=== PATIENT | female | born 1935 | race Caucasian/White ===

== ENCOUNTER 2023-08-26 22:44 | Inpatient (IN) | payer MEDICARE, SELFPAY ==
[2023-08-26] VITALS (7 sets, daily range): BP systolic 113–151; BP diastolic 51–75; BMI 22.0; BMI 20.9
[2023-08-26 19:30] LABS: % Basophils 0.8 % (0-2); % Eosinophils 5.2 % (0-6); % Immature Granulocytes 0.2 % (0-0.5); % Lymphocytes 15.6 % (20.5-51.1); % Monocytes 8.5 % (1.7-9.3); % Neutrophils 69.7 % (42.2-75.2); Absolute Basophils 0.1 10^3/uL (0-0.2); Absolute Eosinophils 0.5 10^3/uL (0-0.7); Absolute Lymphocytes 1.4 10^3/uL (1.2-3.4); Absolute Monocytes 0.8 10^3/uL (0.1-0.6); Absolute Neutrophils 6.2 10^3/uL (1.4-6.5); Hematocrit 39.8 % (37.0-47.0); Hemoglobin 12.7 g/dL (12.0-16.0); Mean Corp Hgb Conc. 31.9 g/dL (33.0-37.0); Mean Corpuscular Hgb 30.8 pg (27.0-31.0); Mean Corpuscular Volume 96.6 fL (81.0-99.0); Mean Platelet Volume 11.3 fL (7.4-10.4); Nucleated Red Blood Cells % 0 %; Platelet Count 177 10^3/uL (130-400); Red Blood Cell Count 4.12 10^6/uL (4.20-5.40); Red Cell Dist. Width 13.6 % (11.5-14.5); White Blood Cell Count 8.9 10^3/uL (4.8-10.8)
--- NOTE | 2023-08-26 19:31 | ED.GENMED ---
History of Present Illness
General
Chief Complaint: Breathing Problem
Source: patient, records and family
Time Seen by Provider: 08/26/23 19:18
Travel History
Have you had any contact with someone who has COVID-19?: No
Do you have any symptoms of coronavirus? Fever > 100 degrees, chills, cough, shortness of breath, sore throat, loss of taste or smell, muscle aches, or headache?: Yes
Symptoms:: shortness of breath
History of Present Illness
History of Present Illness:
This patient is an 88-year-old female presents emergency department complaints of dyspnea for the last 2 days, particular with exertion. She denies leg swelling, orthopnea, PND, cough, sore throat, rhinorrhea, fever, chills, nausea, vomiting, chest
pain or pressure, headache, dizziness, abdominal pain, or other complaints. Patient is compliant with her 20 mg of Lasix per day. She does note a 2 pound weight gain over the last 2 days, and notes that especially in the context of her
dying on July 17 she has been eating less than usual. She denies urinary symptoms or other complaints. Patient takes a daily aspirin.
Past History
Past History
ED Past Medical History: Arrthythmia, CAD, CHF, HTN, Hypercholesterolemia and Valvular disease
ED Past Surgical History: Cardiac (CABG, AICD) and Orthopedic
Social History
Tobacco: Former smoker
Alcohol: None
Drug: None
Personal:
Living: alone
Phy Exam
Physical Exam
Physical Exam:
GENERAL: Alert , in no apparent distress
EYE: pupils equal and reactive
NECK: Supple, no significant adenopathy.
ENT: o/p clr, mmm, no trismus, no drool.
CARDIAC: Regular rate and rhythm .
LUNGS: Equal breath sounds bilaterally, no acute respiratory distress, bilateral rales noted slightly greater at the left base, no active cough or wheezing noted
ABDOMEN: Soft, without focal tenderness, no r/g, no cvat
NEUROLOGICAL: Alert and oriented, no focal neuro deficits
SKIN: Warm and dry, skin intact.
MUSCULOSKELETAL: No edema, well perfused.
PSYCH: Normal and appropriate interaction.
Scores
Heart Failure Risk
Heart Failure Risk Score: Not Applicable
Course
Orders/Labs/Results
Orders:
Orders
08/26/23 Dinner
Cholesterol Lowering
At Your Request: Full Participation
Does patient need a safe tray?: No
Fluid Restriction: 1200 mL/day (40 oz)
Cholesterol Lowering
Fluid Restriction: 1200 mL/day (40 oz)
Cholesterol Lowering: Sodium, 2 Gram
08/26/23 18:26
EKG [Electrocardiogram (*1)] Urgent
Reason for Study: Shortness of Breath
EKG- Treatment ONCE
08/26/23 19:01
Cardiac Monitoring- Treatment ONCE
IV Insert/Care/Rem.- Treatment PRN
CR Chest - 2 Views Urgent
Comment:
Reason For Exam: respiratory distress
O2 Therapy [RESP] Urgent
Titrate/Wean O2 to maintain O2 sat greater than (%): 93
Special Instructions: TO MAINTAIN CONTINUOUS O2 SATS >/= 93%
Pulse Ox/cont/shift [RESP] Urgent
Quantity: 1
Special Instructions: continuous pulse ox
08/26/23 19:15
Complete Blood Count/With Diff Urgent
Comprehensive Metabolic Panel Urgent
08/26/23 19:16
NT-proBNP Urgent
Troponin I Urgent
08/26/23 20:23
Furosemide [Lasix] 40 mg IV NOW STA
08/26/23 22:18
Admit/Transfer Patient As Directed
Co-Sign Provider:
Level of Care: Inpatient admission
Assign to:: Telemetry
Physician / Group: bertha gray
Diagnosis: acute hypoxic resp insuff 2/2 acute/chron chf/cardiomyopathy
Reason for Telemetry: Acute Heart Failure
Date to Stop Telemetry: 08/29/23
Time to Stop Telemetry: 11:00
Reason for Hospitalization: acute hypoxic resp insuff 2/2 acute/chron chf/cardiomyopathy
Expected length of stay greater than two midnights?: Yes
ELOS- Estimated Length of Stay in days: 4
I certify the patient meets the requirements for IP care: Yes
Code Status As Directed
Resuscitation Status: Full Code
CARDIOLOGY CONSULT Routine
Consulting Provider: Benito Hodge
Was physician already notified: No
Reason for consult: acute chf , hx cardiomyopathy ef 25%
Consult Notification Routine
Specialty to Notify: Cardiology
08/26/23 23:23
Acetaminophen [Tylenol] 650 mg PO Q4HPRN PRN
08/26/23 23:23
Activity As Directed
Activity Level: As Tolerated
Intake/ Output As Directed
Frequency: Per unit guidelines
Old Records Request [Obtain Records] As Directed
Dates of Information to be Released: mar 2022
Type of Information Requested: Entire Record
If Other, list type of info requested: include echo
Vital Signs As Directed
Frequency: Per unit guidelines
Weight As Directed
Frequency: Daily
O2 Therapy [RESP] Routine
Nasal Cannula Liter Flow: 2 LPM
Titrate/Wean O2 to maintain O2 sat greater than (%): 92
Pulse Ox/spot Check [RESP] Routine
Quantity: 1
Ot Eval And Treat Routine
Pt Eval And Treat Routine
Activity Level: As Tolerated
DX Deep Vein Thrombosis Video Routine
08/27/23 06:00
Echo 2D MMode Color/Doppler IN AM
Reason for Study: chf
Cardiovascular Evaluation IN AM
Complete Blood Count/With Diff IN AM
Comprehensive Metabolic Panel IN AM
08/27/23 08:00
Amiodarone [Pacerone] 200 mg PO DAILY
Aspirin Low Dose EC [Aspir Low (Enteric Coated)] 81 mg PO DAILY
Atorvastatin [Lipitor] 20 mg PO DAILY
Carvedilol [Coreg] 3.125 mg PO BID
Cholecalciferol (Vitamin D3) [VITAMIN D3 (cholecalciferol)] 25 mcg PO DAILY
Cyanocobalamin [Vitamin B-12] 500 mcg PO DAILY
Furosemide [Lasix] 40 mg IV DAILY
Heparin 5,000 units SC Q12
Multivitamin [Theragran] 1 tablet PO DAILY
NIFEdipine EXTENDED RELEASE [Procardia Xl (Extended Release)] 60 mg PO DAILY
08/27/23 14:00
Levothyroxine [Synthroid] 25 mcg PO DAILY@1400
08/27/23 18:00
Losartan [Cozaar] 100 mg PO QPM
08/28/23 06:00
Complete Blood Count/With Diff IN AM
Comprehensive Metabolic Panel IN AM
08/29/23 06:00
Complete Blood Count/With Diff IN AM
Comprehensive Metabolic Panel IN AM
08/29/23 11:00
DC Protocol for Telemetry ONCE
Abnormal Lab Results
08/26/23
19:15
RBC 4.12 L 10^6/uL
(4.20-5.40)
MCHC 31.9 L g/dL
(33.0-37.0)
MPV 11.3 H fL
(7.4-10.4)
Absolute Monos (auto) 0.8 H 10^3/uL
(0.1-0.6)
Lymphocytes % 15.6 L %
(20.5-51.1)
BUN 54 H mg/dl
(7-17)
Creatinine 1.4 H mg/dL
(0.6-1.0)
Glucose 196 H mg/dl
(70-99)
08/26/23 19:15
08/26/23 19:15
Vital Signs
Initial and Last Documented VS:
Initial Vital Signs
Temp Pulse Resp BP Pulse Ox
99.1 F 88 22 129/65 91
08/26/23 18:23 08/26/23 18:23 08/26/23 18:23 08/26/23 18:23 08/26/23 18:23
Last Documented Vital Signs
Temp Pulse Resp BP Pulse Ox
98.4 F 70 18 151/70 94
08/26/23 23:55 08/26/23 23:55 08/26/23 23:55 08/26/23 23:55 08/26/23 23:55
*Critical Care Note
Total Time (30-74mins, 75-104mins- exclusive of procedures): Not Applicable
Update Note
Update Note:
Patient presents to the Emergency Department with dyspnea
Number and Complexity of Problems Addressed at the Encounter
� Chronic conditions affecting care:
� Acute Exacerbation and/or Progression of Chronic Illness:
� Differential Diagnosis includes: But not limited to heart failure, pneumonia, ACS, PE, pneumothorax, etc. etc.
Amount and/or Complexity of Data to be Reviewed and Analyzed
� I performed an independent evaluation of and my interpretation is:
EKG: Read by me, normal rate, ventricular paced, unchanged from prior
CT:
Xrays: Suspect mild heart failure
Laboratory Studies: Noted BNP elevation which is new, worsening renal function, nonspecific hyperglycemia without associated acidosis
Other:
� Review of other/old records reveals: Discharge summary from May 2022 reviewed patient had a left femur fracture that was repaired, complicated by COVID and hypoxia, but was ultimately able to be discharged without oxygen.
� Clinical information was obtained by an independent historian: Son and daughter who are at bedside
� Prescriptions/Medications Considered but not given:
� Further testing considered but not performed:
Risk of Complications and/or Morbidity or Mortality of Patient Management
� Social determinants of health affecting care:
� Discussion with other providers (PCP, Hospitalists, Consultants, etc):
� Escalation of care including admission/observation vs risk of discharge considered: Suspect heart failure as etiology for her symptoms perhaps exacerbated by her history of moderate recently looked at via echo approximately
1 year ago. Will Rx Lasix, discussed with Darshan harry hospitalist for admission sure. Patient stable on nasal cannula.
ED Attending Note
-
Portions of this chart may have been created with voice recognition software.� Occasional wrong word or��sound alike� substitutions may have occurred due to the inherent limitations of voice recognition software.
Discharge Plan
Departure
Patient Disposition: Admit
Date of Disposition: 08/26/23
Time of Disposition: 20:24
Admit to: Telemetry
Presentation/result/management discussed w/ accepting MD/DO: Hospitalist
Condition: Good
Discharge Problem:
Dyspnea
Interventions
Interventions:
*Risk Screen - Suicide Last Done: 08/26/23 22:22
*General Assessment Last Done: 08/26/23 19:47
*Neglect/Abuse Screening Last Done: 08/26/23 19:47
ED- Fall Risk Assessment Last Done: 08/26/23 19:44
*ED COVID-19 Vaccine History Last Done: 08/26/23 23:40
*Nursing Disposition Last Done: 08/26/23 23:29
ED- Cardiac Assessment Last Done: 08/26/23 19:44
ED- Pulmonary Assessment Last Done: 08/26/23 19:44
Discharge Date and Time
Discharge Date/Time: 08/26/23 23:29
[2023-08-26 19:47] LABS: ALT (SGPT) 19 U/L (0-35); AST (SGOT) 27 U/L (14-36); Albumin 4.2 g/dl (3.5-5.0); Alkaline Phosphatase 88 U/L (38-126); Blood Urea Nitrogen 54 mg/dl (7-17); Calcium 10.1 mg/dl (8.4-10.2); Carbon Dioxide 29 mmol/L (22-30); Chloride 99 mmol/L (98-107); Estimated Creatinine Clearance 24 ml/min; Glucose 196 mg/dl (70-99); Potassium 4.6 mmol/L (3.5-5.1); Sodium 137 mmol/L (135-145); Total Bilirubin 0.7 mg/dl (0.2-1.3); Total Protein 7.2 g/dl (6.3-8.2); eGFR 36.19
[2023-08-26 20:00] LABS: NT-proBNP 8120 pg/ml; Troponin I 0.019 ng/ml
[2023-08-26] MEDS: LASIX 40 MG IV (20:34)
--- NOTE | 2023-08-26 21:53 | HPS.HSE ---
Addendum entered and electronically signed by Mouna St MD 08/26/23 22:32:
I saw and examined the patient.
The SERVICE PORTER or PA's note was reviewed and I agree with the note.
Comment:
Patient is a pleasant 88 years old with history of systolic CHF, ischemic and numerous status post RCA, A-fib who came to the ER with dyspnea and weight gain for last 2 days noted to have elevated BNP and x-ray shows pulmonary congestion, given
Lasix IV in the ER.
Patient seen and examined at bedside, denies any chest pain, her shortness of breath improved, no abdominal pain, no nausea, no vomiting, no diarrhea or constipation.
Physical exam:
GENERAL : Patient is awake, alert, oriented x3
HEENT: Nonicteric sclerae, PERRLA, EOMI. Oropharynx clear. Moist mucous membranes. Conjunctivae appear well perfused.
CHEST: Chest wall is nontender.
HEART: Diminished breath sound bilaterally with bilateral basal rate
LUNGS: Clear to auscultation bilaterally.
ABDOMEN: Soft, positive bowel sounds, nontender, no organomegaly.
RECTAL: Deferred.
SKIN: No rash, no excessive bruising, petechiae, or purpura.
NEUROLOGIC: Cranial nerves II-XII intact without motor/sensory deficit.
Assessment/plan:
Acute on chronic systolic CHF.
Patient presented with shortness of breath.
BNP level is elevated at 8120
Continue IV diuresing in form of Lasix 40 mg daily
Daily weight.
Strict I's and O's.
Consulted cardiology.
Most recent echocardiogram in November 10, 2022 shows EF 25 to 30%
Repeat echocardiogram
Paroxysmal A-fib
Continue amiodarone/aspirin
Original Note:
Family Physician
-
Family Physician: Guicho Klein
Chief Complaint
-
Shortness of breath, REDDY, weight gain
History of Present Illness
88-year-old female complaining of dyspnea for the past 2 days increased with exertion. She reports a 2 pound weight gain also over the past 2 days despite taking her 20 mg of Lasix daily and eating less since her on July 17. She denies
orthopnea, leg swelling, cough, sore throat, fever, chills, chest pain, palpitations, abdominal pain, nausea, vomiting, diarrhea, urinary symptoms. She is past medical history of A-fib, congestive heart failure with cardiomyopathy EF 25% November 10,
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 difficile, renal calculi, SQUAXIN.
Medical History
Past Medical History
Past Medical History: Reports Other
Additional Past Medical History:
A-fib
ASCVD
Hypertension
Chronic HFrEF (35-40%)
Possible / Presumed Endocarditis 2021
Recurrent C Diff Colitis
CKD III
COVID-19 infection May 2023 received Decadron x 10 days
SQUAXIN
Cataracts
Arthritis
ADHD
Renal calculi
Past Surgical History: Reports Other
Additional Past Surgical History:
CABG 2012
AICD placement
Bilateral Wrist ORIF
Left hip ORIF June 05, 2022
Social History
Tobacco: Former Smoker (Quit smoking 37y ago. Approx 20 pack years total.)
Alcohol: None
Drug: None
Personal: ( July 18, 2023)
Living: Alone
Employment: Retired
Family History
Family History: Other (Mother: Premature CAD ( at 46) Multiple other family members with longevity. Father age 65 miners asthma)
Allergies / Home Medications
Allergies reflects when Allergies were last updated in [facility].
Home Medications with original date entered in [facility]
Allergy/Medication List:
Allergies
Allergy/AdvReac Type Severity Reaction Status Date / Time
No Known Allergies Allergy Verified 08/26/23 18:25
Home Medications
acetaminophen 500 mg tablet (Tylenol Extra Strength) 1,000 mg PO Q6H PRN mild pain 08/26/23
amiodarone 200 mg tablet 200 mg PO DAILY 08/26/23
aspirin 81 mg tablet,delayed release 81 mg PO DAILY 08/26/23
atorvastatin 20 mg tablet 20 mg PO DAILY 08/26/23
carvedilol 3.125 mg tablet 3.125 mg PO BID 08/26/23
cholecalciferol (vitamin D3) 25 mcg (1,000 unit) tablet 25 mcg PO DAILY 08/26/23
cyanocobalamin (vitamin B-12) 500 mcg tablet 500 mcg PO DAILY 08/26/23
furosemide 20 mg tablet 20 mg PO DAILY 08/26/23
levothyroxine 25 mcg tablet 25 mcg PO DAILY@1400 08/26/23
losartan 100 mg tablet 100 mg PO QPM 08/26/23
zcoltgcsnljn-nnuuptfo-skgszk tablet 1 tab PO DAILY 08/26/23
nifedipine 60 mg tablet,extended release 24 hr 60 mg PO DAILY 08/26/23
potassium chloride 20 mEq tablet,extended release(part/cryst) (Klor-Con M) 10 meq PO Q48H@0800 08/26/23
Review of Systems
-
History Source: Patient and Family (Daughter Joslyn at bedside)
A 12 point ROS was completed and negative except as noted: Yes
Constitutional: Reports Weight Gain (2 pounds past day); Denies Fever or Fatigue
EENT: Denies Sore Throat or Runny Nose
Respiratory: Reports Trouble Breathing (REDDY); Denies Cough
Cardiac: Denies Chest Pain, Diaphoresis, Palpitations or Syncope
Abdomen/GI: Denies Abdominal Pain, Nausea, Vomiting, Diarrhea, Constipated, Bloody Stools or Black Stools
: Denies Dysuria, Frequency, Flank Pain, Incontinence, Difficulty Voiding or Urgency
Musculoskeletal: Denies Joint Pain or Edema
Skin: Denies Itching or Rash
Neurological: Denies Dizzy, Headache or Weakness
Endocrine: Reports No Symptoms
Hematologic/Lymphatic: Reports No Symptoms
Psych: Reports Calm
Physical Exam
Vital Signs
Vital Signs
Temp Pulse Resp BP Pulse Ox
99.1 F 85 25 128/76 95
08/26/23 18:23 08/26/23 20:37 08/26/23 20:37 08/26/23 20:34 08/26/23 20:38
Physical Exam
General: Comfortable and Conversant; No Pain, Fever or Chills
HEENT: NormoCephalic, Anicteric, PERRLA and No Ptosis
Respiratory: Rales (Throughout both lung strickland); No Wheezes
Cardiac: S1/S2 and Murmur; No Rub, Gallop or Peripheral Edema
Breast: Deferred by me
GI: Soft, Non Tender, Non Distended, Normal Bowel Sounds and No Hepatosplenomegaly
Rectal: Deferred by Provider
Genito-urinary: Deferred by me
Musculoskeletal: No Clubbing, No Cyanosis and No Edema
Skin: Warm and Dry; No Rash
Neuro: AO x 3, No Motor Deficits, Nonfocal/grossly intact, Cranial Nerves Intact and No Sensory Deficits; No Slurred Speech, Facial Droop or Tremors
Psych: Calm
Laboratory Results
-
08/26/23 19:15
08/26/23 19:15
Laboratory Results
Total Bilirubin 0.7 mg/dl (0.2-1.3) 08/26/23 19:15
AST 27 U/L (14-36) 08/26/23 19:15
ALT 19 U/L (0-35) 08/26/23 19:15
Alkaline Phosphatase 88 U/L (38-126) 08/26/23 19:15
Troponin I 0.019 ng/ml 08/26/23 19:16
Impression/Plan
-
Impression/plan:
Admit to telemetry
#Acute hypoxic resp insuff 2/2 Acute on Chronic CHF exacerbation/Cardiomyopathy EF 25%
91% RA, 95% 2 LNC(patient reports baseline weight 122 pounds went up to 124 pounds at home today is currently 58 kg / 127.6 kg here
BNP 8120
-I/O, daily weights
-IV Lasix 40 mg daily
-Consult [facility] cardiology
-Check 2D echo
-Healthy heart diet, fluid restrict 40 ounce
Per outpatient records at [place] 2D echo November 10, 2022 EF 25% moderate aortic stenosis, moderate TR MR, pulm HTN
2D echo 10/27/2021: EF 35-40%, moderate reduced LVSF, moderate aortic stenosis. Mild aortic regurg. Moderate TR/MR, pulm HTN pulm pressure 50-55 mmHg
CXR: Mild pulmonary vascular congestion. Stable cardiac enlarged
EKG: Atrial sensed ventricular paced rhythm with frequent PVCs heart rate 88 bpm, QTc 520 MS
#CARLOS on CKD 3B�4
Creat 1.4 prior 1.0 06/08/2022
-Follow BMP
#Afib parox
#Pacemaker/defibrillator
-Continue amiodarone 20 mg daily, aspirin 81 mg daily
-Patient follows with Dr. De Los [facility] at [facility] cardiology
#Pulmonary HTN
#Moderate TR/MR
#CAD/CABG 2012
#Hx endocarditis 11/01/2021
-Continue aspirin 81 mg daily, atorvastatin 20 mg daily, carvedilol 3.125 mg twice daily
#HTN�benign
BP 128/76
-Continue carvedilol 3.125 mg twice daily, losartan 100 mg every afternoon
-Continue nifedipine 60 mg daily
#Hypothyroidism
-Continue levothyroxine 25 mcg p.o. daily
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
Plt currently 177 stable
Other PMH:
COVID-19 infection May 2023 received Decadron x 10 days
SQUAXIN
Cataracts
Arthritis
ADHD
Hx C. difficile
Renal calculi
DVT prophylaxis
subcu heparin
Full code per patient with daughter Joslyn at bedside
[2023-08-27] VITALS (8 sets, daily range): BP systolic 95–148; BP diastolic 51–70; PULSE 74–81; O2SAT 91–96; BMI 20.8
[2023-08-27 07:22] LABS: % Basophils 0.9 % (0-2); % Eosinophils 7.3 % (0-6); % Immature Granulocytes 0.3 % (0-0.5); % Lymphocytes 16.5 % (20.5-51.1); % Monocytes 11.1 % (1.7-9.3); % Neutrophils 63.9 % (42.2-75.2); Absolute Basophils 0.1 10^3/uL (0-0.2); Absolute Eosinophils 0.5 10^3/uL (0-0.7); Absolute Lymphocytes 1.2 10^3/uL (1.2-3.4); Absolute Monocytes 0.8 10^3/uL (0.1-0.6); Absolute Neutrophils 4.5 10^3/uL (1.4-6.5); Hemoglobin 11.4 g/dL (12.0-16.0); Mean Corp Hgb Conc. 31.7 g/dL (33.0-37.0); Mean Corpuscular Hgb 30.9 pg (27.0-31.0); Mean Corpuscular Volume 97.6 fL (81.0-99.0); Mean Platelet Volume 11.1 fL (7.4-10.4); Nucleated Red Blood Cells % 0 %; Platelet Count 148 10^3/uL (130-400); Red Blood Cell Count 3.69 10^6/uL (4.20-5.40); Red Cell Dist. Width 13.8 % (11.5-14.5)
--- NOTE | 2023-08-27 07:40 | PTCARENOTE ---
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
[2023-08-27 07:54] LABS: ALT (SGPT) 17 U/L (0-35); AST (SGOT) 22 U/L (14-36); Albumin 3.6 g/dl (3.5-5.0); Alkaline Phosphatase 79 U/L (38-126); Blood Urea Nitrogen 52 mg/dl (7-17); Calcium 9.5 mg/dl (8.4-10.2); Carbon Dioxide 31 mmol/L (22-30); Chloride 100 mmol/L (98-107); Estimated Creatinine Clearance 24 ml/min; Glucose 143 mg/dl (70-99); HDL Cholesterol 45 mg/dl; LDL Cholesterol, Calculated 77 mg/dl; Potassium 4.1 mmol/L (3.5-5.1); Sodium 141 mmol/L (135-145); Total Bilirubin 0.7 mg/dl (0.2-1.3); Total Cholesterol 143 mg/dl (50-199); Total Protein 6.3 g/dl (6.3-8.2); Triglyceride 109 mg/dl (10-149); Very Low Density Lipoprotein 21 mg/dl (0-30); eGFR 36.19
--- NOTE | 2023-08-27 08:02 | W.PN.HOSP.TC ---
Today's Communication/Plan
-
see bold
Assessment / Plan
Assessment / Plan
Gen: NAD, Awake and alert
Eyes: EOMI, PERRLA, no scleral icterus.
Neck: supple.
CV: RRR, +S1/S2, 2/6 systolic murmur
Resp: CTAB, no rales, wheezes, or rhonchi.
Abd: +BS, soft, NT, ND
Skin: No rashes. No LE edema
Neuro: CN 2-12 intact, non-focal.
Psych: Normal mood and affect.
CXR:
1. Suspicion for mild pulmonary vascular congestion.
2. Stable cardiac enlargement.
Acute on chronic HFrEF:
-proBNP 8120
-cont IV lasix (increase to 40mg IV BID)
-cont BB
-check echo
-I/Os, daily wts
-c/s cards
CARLOS on CKD3b:
-likely due to CRS
-trend Cr with diuresis
Paroxysmal A-fib: Continue amiodarone/BB
Essential HTN: Cont Coreg/nifedipine/losartan
Hypothyroidism: Continue Levoxyl
FULL/heparin
Anticipated Discharge: 24 - 48 hours
Subjective/Interval History
-
Date of Service: August 27, 2023
SOB improving.
Objective Data
-
Labs:
Laboratory Results
08/27/23
06:52
WBC 7.0
Hgb 11.4 L
Hct 36.0 L
Plt Count 148
Sodium 141
Potassium 4.1
Chloride 100
Carbon Dioxide 31 H
BUN 52 H
Creatinine 1.4 H
Glucose 143 H
Calcium 9.5
Total Bilirubin 0.7
AST 22
ALT 17
Alkaline Phosphatase 79
Vital Signs:
Vital Signs
Temp Pulse Resp BP Pulse Ox
97.9 F 73 18 127/65 97
08/27/23 03:30 08/27/23 03:30 08/27/23 03:30 08/27/23 03:30 08/27/23 03:30
--- NOTE | 2023-08-27 08:10 | CON.CAR ---
Addendum entered and electronically signed by Benito Hodge MD 08/27/23 09:20:
I saw and examined the patient.
The WIRE BRUSH MAKER's note was reviewed and I agree with the note.
Comment: 88 y/o female with CAD s/p CABG 2012, ICD (BS), HFrEF (most recent EF here 35-40%), suspected endocarditis 11/03 (treatment with abx), hypertension, dyslipidemia, AAA, moderate /TR/MR, LBBB, VT (on amio, with ICD as noted) who is here for
evaluation of 1 day of REDDY.
- breathing improved, increase lasix bid today, likely back to home diuretics tomorrow
- repeat tte today
Original Note:
Consultation
Consultation Request
Date/Time Consultation Requested: 08/26/232217
Date/Time Consultation Performed: 08/26/23 08
Requesting Provider: Angela Dave NP
Performing Provider: Linda LABOY for Dr. Hodge
Reason for Consultation: CHF
Medical History
-
Chief Complaint: SOB
History of Present Illness:
88 y/o female with CAD s/p CABG 2012, ICD (BS), HFrEF (most recent EF here 35-40%), suspected endocarditis 11/03 (treatment with abx), hypertension, dyslipidemia, AAA, moderate /TR/MR, LBBB, VT (on amio, with ICD as noted) who is here for
evaluation of 1 day of REDDY. She is admitted for management of ngeog-lc-ikqspny HFrEF. She is on O2 by MO. She has been taking her daily lasix. Her of 55 years last month and she has not been eating or drinking much. Dr. De Los Santos is her
teller vault and she sees him about every 4 months. She is seeing him as OP soon.
Past Medical History
Past Medical History: Arrhythmias (VT. Patient denies any history of AFIB.), CAD, CHF, HTN, Hypercholesterolemia and Valvular Disease
Social History
Personal:
Family History
Family History: Reviewed & Not Pertinent
Allergies / Home Medications
Allergy/AdvReac Type Severity Reaction Status Date / Time
No Known Allergies Allergy Verified 08/26/23 18:25
�Medication �Instructions �Recorded �Confirmed �Type
acetaminophen 500 mg tablet 1,000 mg PO Q6H PRN mild pain 08/26/23 08/26/23 History
(Tylenol Extra Strength)
amiodarone 200 mg tablet 200 mg PO DAILY 08/26/23 08/26/23 History
aspirin 81 mg tablet,delayed 81 mg PO DAILY 08/26/23 08/26/23 History
release
atorvastatin 20 mg tablet 20 mg PO DAILY 08/26/23 08/26/23 History
carvedilol 3.125 mg tablet 3.125 mg PO BID 08/26/23 08/26/23 History
cholecalciferol (vitamin D3) 25 25 mcg PO DAILY 08/26/23 08/26/23 History
mcg (1,000 unit) tablet
cyanocobalamin (vitamin B-12) 500 500 mcg PO DAILY 08/26/23 08/26/23 History
mcg tablet
furosemide 20 mg tablet 20 mg PO DAILY 08/26/23 08/26/23 History
levothyroxine 25 mcg tablet 25 mcg PO DAILY@1400 08/26/23 08/26/23 History
losartan 100 mg tablet 100 mg PO QPM 08/26/23 08/26/23 History
iamrmwvjzglp-imiotwpq-fhsssp tablet 1 tab PO DAILY 08/26/23 08/26/23 History
nifedipine 60 mg tablet,extended 60 mg PO DAILY 08/26/23 08/26/23 History
release 24 hr
potassium chloride 20 mEq 10 meq PO Q48H@0800 08/26/23 08/26/23 History
tablet,extended
release(part/cryst) (Klor-Con M)
Review of Systems
-
History Source: Patient
All other systems: Negative unless noted
Constitutional: Weight Loss (not eating much as noted)
Respiratory: Trouble Breathing
Physical Exam
Vital Signs
Temp Pulse Resp BP Pulse Ox
97.9 F 73 18 127/65 97
08/27/23 03:30 08/27/23 03:30 08/27/23 03:30 08/27/23 03:30 08/27/23 03:30
Lab Results
08/27/23 06:52
08/27/23 06:52
Troponin I 0.019 ng/ml 08/26/23 19:16
Tlp-I-Pnzfbxpfgir Pept 8120 pg/ml 08/26/23 19:16
Physical Exam
General: Well Developed and No Apparent Distress
Respiratory: Crackles (bases) and Other (on O2 by NC, mildly increased WOB)
Cardiac: Regular Rhythm
Musculoskeletal: No Edema
Skin: Warm and Dry
Neuro: AO x 3
Psych: Calm
Impression / Plan
-
Aylak-ad-hxqfgcm HFrEF:
-BNP elevated, CXR suggestive of excess fluid. Mildly increased WOB, on O2 by NC, rales noted.
-Echo 10/27/21: EF 35-40%. Moderate aortic stenosis. Mild aortic regurgitation. Thickened mitral valve with MAC and echodensities on ventricular side of the valve. Cannot exclude vegetation. Moderate tricuspid regurgitation. Moderate mitral
regurgitation. Pulmonary hypertension
-agree with IV diuresis, which requires intensive monitoring- follow creatinine, which is mildly elevated
-update echo
-CHF education
-she is on BB/ARB per her primary teller vault
CAD s/p CABG:
-stable without reports of chest pain, trop is unremarkable
-continue ASA, statin, BB
VT:
-ICD in place (BS)
-on amiodarone
Data Reviewed
-
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
Radiology: Report Reviewed by me (CXR: 1. Suspicion for mild pulmonary vascular congestion. 2. Stable cardiac enlargement.)
Medical Tests (Nuc Med, Echo etc): Report Reviewed by me (echo as above)
Labs: Labs Reviewed by me
[2023-08-27] MEDS: COREG 3.125 MG PO ×2 (09:27→21:09)
[2023-08-27] MEDS: PROCARDIA XL (EXTENDED RELEASE) 60 MG PO (09:27)
[2023-08-27] MEDS: VITAMIN B-12 500 MCG PO (09:28)
[2023-08-27] MEDS: LIPITOR 20 MG PO (09:28)
[2023-08-27] MEDS: THERAGRAN 1 TABLET PO (09:30)
[2023-08-27] MEDS: PACERONE 200 MG PO (09:30)
[2023-08-27] MEDS: HEPARIN 5000 UNITS SC ×2 (09:30→20:09)
[2023-08-27] MEDS: LASIX 40 MG IV ×2 (09:31→16:49)
[2023-08-27] MEDS: VITAMIN D3 (cholecalciferol) 25 MCG PO (09:31)
[2023-08-27] MEDS: ASPIR LOW (ENTERIC COATED) 81 MG PO (09:31)
[2023-08-27] MEDS: FLUSH (NSS) 1 FLUSH IV ×2 (09:32→16:49)
--- NOTE | 2023-08-27 11:18 | CM ---
Patient seen bedside with family, initial assessment completed. Patient resides independently in a multiple story home with a first floor set up, one step to enter, railing to get in. Patient currently on O2, is not on home O2, has a walker,
wheelchair, and and cane at home if needed. Patient has had [facility] in the past, denies SNF history. Patient confirms PCP Guicho Klein, pharmacy [facility], confirms prescription coverage. Patient denies food insecurities at home.
PT/OT consulted, watch for recommendations. CM will continue to follow for all discharge planning needs.
Plan; home no needs vs VN, watch for PT/OT evals.
[2023-08-27] MEDS: SYNTHROID 25 MCG PO (14:13)
--- NOTE | 2023-08-27 16:56 | PTCARENOTE ---
Pt AAO x3, BOLAÑOS; OOB to chair/ambulated to stretcher with assist x1; jessee OOB activity but tires easily. VSS. Telemetry:V-paced rhythm. On nc 2 lpm- pulse ox 93%, pt with (+) REDDY but denies SOB. Abd soft, rounded, jessee PO well. Purewick catheter
P/I large amts clear yellow urine. Resting in bed at present; family at bedside. Will continue to monitor.
[2023-08-27] MEDS: COZAAR 100 MG PO (18:22)
[2023-08-28] MEDS: TYLENOL 650 MG PO (00:27)
[2023-08-28 01:44] VITALS: BMI 20.8
[2023-08-28 03:12] VITALS: BP 134/60
[2023-08-28 06:00] VITALS: BMI 20.8
[2023-08-28 07:21] LABS: % Basophils 0.7 % (0-2); % Eosinophils 9.8 % (0-6); % Immature Granulocytes 0.1 % (0-0.5); % Lymphocytes 17.3 % (20.5-51.1); % Monocytes 10.5 % (1.7-9.3); % Neutrophils 61.6 % (42.2-75.2); Absolute Basophils 0.1 10^3/uL (0-0.2); Absolute Eosinophils 0.7 10^3/uL (0-0.7); Absolute Lymphocytes 1.2 10^3/uL (1.2-3.4); Absolute Monocytes 0.7 10^3/uL (0.1-0.6); Absolute Neutrophils 4.2 10^3/uL (1.4-6.5); Hematocrit 38.6 % (37.0-47.0); Mean Corp Hgb Conc. 31.1 g/dL (33.0-37.0); Mean Corpuscular Hgb 30.7 pg (27.0-31.0); Mean Corpuscular Volume 98.7 fL (81.0-99.0); Mean Platelet Volume 11.1 fL (7.4-10.4); Nucleated Red Blood Cells % 0 %; Platelet Count 157 10^3/uL (130-400); Red Blood Cell Count 3.91 10^6/uL (4.20-5.40); Red Cell Dist. Width 13.8 % (11.5-14.5); White Blood Cell Count 6.8 10^3/uL (4.8-10.8)
--- NOTE | 2023-08-28 07:40 | W.PN.CD ---
Today's Communication / Plan
-
-Stable for discharge from cardiac standpoint.
-Increase diuretics dose at discharge.
-Continue Coreg and losartan 3.125 twice a day and 100 mg daily
Impression / Plan
-
Buwzj-ii-nsfhrgt HFrEF:
-BNP elevated, CXR suggestive of excess fluid. Mildly increased WOB, on O2 by NC, rales noted.
-Echo 10/27/21: EF 35-40%. Moderate aortic stenosis. Mild aortic regurgitation. Thickened mitral valve with MAC and echodensities on ventricular side of the valve. Cannot exclude vegetation. Moderate tricuspid regurgitation. Moderate mitral
regurgitation. Pulmonary hypertension
-Echo 08/27/2023: Severe mitral regurgitation. LVEF 30%.
-Feeling much better with diuresis.
-Patient and family wants to go home.
-Home dose Lasix is 20 mg once a day. Change it to 40 mg twice a day for 3 days and then 40 mg once a day.
-CHF education
-she is on BB/ARB per her primary vendor representatives, consider adding spironolactone/Farxiga and upgrade to Entresto as outpatient.
CAD s/p CABG:
-stable without reports of chest pain, trop is unremarkable
-continue ASA, statin, BB
VT:
-ICD in place (BS)
-on amiodarone
Physical Exam
Vital Signs/Labs
Vital Signs
Temp Pulse Resp BP Pulse Ox
97.5 F 76 19 134/60 94
08/28/23 03:12 08/28/23 03:12 08/28/23 03:12 08/28/23 03:12 08/28/23 03:12
08/27/23 08/28/23 08/29/23
06:59 06:59 06:59
Actual Weight 55.026 kg 54.941 kg
Triglycerides 109 mg/dl (10-149) 08/27/23 06:52
LDL Cholesterol, Calc 77 mg/dl 08/27/23 06:52
VLDL Cholesterol, Calc 21 mg/dl (0-30) 08/27/23 06:52
HDL Cholesterol 45 mg/dl 08/27/23 06:52
08/26/23
19:16
Ssl-S-Cxeslswovca Pept 8120
LAB Results
08/26/23
19:16
Troponin I 0.019
Physical Exam
Constitutional: No acute distress and Comfortable
EENT: Anicteric and Moist mucous membranes
Cardiovascular: Rhythm & rate is regular, Pedal edema is absent, Pedal edema present and JVD present
Respiratory: Respiratory effort normal, Lungs clear to auscul. and Wheeze Absent
GI: Soft, Non tender and Normal bowel sounds
Neuro/Psych: Alert, Oriented and AO x 3
Data Reviewed
-
Date of Service: August 28, 2023
Medical Decision Making: Reviewed Test Results, Independent Historian Assessment, Test Interpretation and Review of Case with other Provider
EKG: Tracing Personally Visualized and interpreted
Echo: Report Reviewed by me
Labs: Labs Reviewed by me
Old Records: Reviewed
[2023-08-28 07:43] VITALS: BP 130/64
[2023-08-28 07:44] LABS: ALT (SGPT) 16 U/L (0-35); AST (SGOT) 22 U/L (14-36); Albumin 3.6 g/dl (3.5-5.0); Alkaline Phosphatase 79 U/L (38-126); Blood Urea Nitrogen 63 mg/dl (7-17); Calcium 9.5 mg/dl (8.4-10.2); Carbon Dioxide 32 mmol/L (22-30); Chloride 98 mmol/L (98-107); Estimated Creatinine Clearance 24 ml/min; Glucose 158 mg/dl (70-99); Potassium 4.3 mmol/L (3.5-5.1); Sodium 140 mmol/L (135-145); Total Bilirubin 0.7 mg/dl (0.2-1.3); Total Protein 6.5 g/dl (6.3-8.2); eGFR 36.19
--- NOTE | 2023-08-28 09:02 | W.PN.HOSP.TC ---
Addendum entered and electronically signed by John Dc MD 08/28/23 11:33:
Patient is in need of oxygen on exertion due to pulse oximetry of 92% on room air at rest; 87% on room air with exertion. Patient was placed on 2L O2 via nasal cannula with saturation of 94%. Oxygen will help to improve hypoxemia. Patient is mobile
within the home. Oxygen will improve the patient's symptoms.
Original Note:
Today's Communication/Plan
-
home O2 eval, d/c
Assessment / Plan
Assessment / Plan
Gen: remains NAD, Awake and alert
Eyes: EOMI, PERRLA, no scleral icterus.
Neck: supple.
CV: RRR, +S1/S2, 2/6 systolic murmur
Resp: mild rales, greatest in the L base
Abd: +BS, soft, NT, ND
Skin: No rashes. No LE edema
Neuro: remains CN 2-12 intact, non-focal.
Psych: Normal mood and affect.
CXR:
1. Suspicion for mild pulmonary vascular congestion.
2. Stable cardiac enlargement.
Echo: Normal LV size with moderately reduced systolic function.
LVEF is 30 to 35% by visual estimation with global diffuse hypokinesis.
Mild concentric LVH.
Normal right ventricular size and function.
Moderate to severe mitral regurgitation.
Mild to moderate aortic stenosis. Moderate aortic regurgitation.
Moderate to severe tricuspid regurgitation.
Estimated pulmonary artery pressure of 48 mmHg, assuming a right atrial
pressure of 3 mmHg.
Compared to prior from October 27, 2021, mitral regurgitation is now moderate to
severe from moderate, aortic regurgitation is moderate from mild , and
tricuspid regurgitation is now moderate to severe from moderate.
Acute on chronic HFrEF:
-proBNP 8120
-echo above
-currently on IV Lasix. As per discussion with Dr. Parks, pt can be discharged on Lasix 40mg twice daily for 3 days then 40mg daily thereafter.
-cont BB
-I/Os, daily wts
CARLOS on CKD3b:
-likely due to CRS
-Cr stable with diuresis
-recheck Cr in 1 week
Other problems:
Paroxysmal A-fib: Continue amiodarone/BB
Essential HTN: Cont Coreg/nifedipine/losartan
Hypothyroidism: Continue Levoxyl
FULL/heparin
Total time spent on d/c = 34 min. This included today's physical exam, progress note, review of laboratory and diagnostic data, preparation of discharge documents and prescriptions, and discussions about the pt's hospital course and discharge plan
with the patient and other medical office representative involved in the patient's care.
Anticipated Discharge: Today
Subjective/Interval History
-
Date of Service: August 28, 2023
Denies SOB.
Objective Data
-
Labs:
Laboratory Results
08/28/23
06:49
WBC 6.8
Hgb 12.0
Hct 38.6
Plt Count 157
Sodium 140
Potassium 4.3
Chloride 98
Carbon Dioxide 32 H
BUN 63 H
Creatinine 1.4 H
Glucose 158 H
Calcium 9.5
Total Bilirubin 0.7
AST 22
ALT 16
Alkaline Phosphatase 79
Vital Signs:
Vital Signs
Temp Pulse Resp BP Pulse Ox
97.4 F 73 16 130/64 96
08/28/23 07:43 08/28/23 07:43 08/28/23 07:43 08/28/23 07:43 08/28/23 07:43
I&O
08/27/23 08/28/23 08/29/23
06:59 06:59 06:59
Intake Total 720 / 720
Output Total 1050 / 1050
Balance -330 / -330
[2023-08-28] MEDS: ASPIR LOW (ENTERIC COATED) 81 MG PO (09:05)
[2023-08-28] MEDS: COREG 3.125 MG PO (09:05)
[2023-08-28] MEDS: VITAMIN B-12 500 MCG PO (09:06)
[2023-08-28] MEDS: LIPITOR 20 MG PO (09:06)
[2023-08-28] MEDS: VITAMIN D3 (cholecalciferol) 25 MCG PO (09:06)
[2023-08-28] MEDS: PACERONE 200 MG PO (09:07)
[2023-08-28] MEDS: HEPARIN 5000 UNITS SC (09:08)
[2023-08-28] MEDS: PROCARDIA XL (EXTENDED RELEASE) 60 MG PO (09:09)
[2023-08-28] MEDS: LASIX 40 MG IV (09:11)
[2023-08-28] MEDS: THERAGRAN 1 TABLET PO (09:14)
[2023-08-28 11:29] VITALS: BP 136/63
--- NOTE | 2023-08-28 12:03 | CM ---
CM reviewed pt with Dr Dc- ready for dc
VN recommended and pt will need new home O2
Bedside meeting with pt and dtr/Joslyn
Plan for home to dtr's house- declined VN
Dtr is a nurse and there are therapists and physicians in family
DME providers discussed- referral and clinicals sent to [facility] for home O2
TT/Dr Jaeger- aware famiyl has declined VN
IMM verbally reviewed with pt and family- copy provided
Copy of O2 script on chart
Discharge Disposition- home with new O2/[employer]- family transport (declined VN)
Dtrs home address [address] [place] [id number]
--- NOTE | 2023-08-28 12:31 | PTCARENOTE ---
Reviewed discharge instructions with patient and daughter. Written instructions provided. Patient and daughter verbalize understanding of teaching and deny questions at this time. Aware that blood work is needed in about a week via PCP. Karin
instructions read back by daughter correctly. Awaiting oxygen to be delivered as walking pulse ox was 88%. Once portable oxygen arrives, family will transport home and she will be staying at daughter's home at this time.
[2023-08-28 14:28] VITALS: BMI 20.8
--- NOTE | 2023-08-28 14:52 | PTCARENOTE ---
Patient left via wheelchair with staff accompanied by daughter.
--- NOTE | 2023-08-28 15:16 | W.DCSUMMARY ---
Discharge Summary
Discharge Data
Date of Admission: 08/26/23
Date of Discharge: 08/28/23
-
Pending Results: No
Hospital Course
Primary diagnoses:
Acute on chronic heart failure with reduced ejection fraction
Secondary diagnoses:
Coronary artery disease s/p coronary artery bypass grafting in 2012
Ventricular tachycardia with history of implantable cardioverter defibrillator
Acute kidney injury on chronic kidney disease stage 3b
Paroxysmal atrial fibrillation
Essential hypertension
Hypothyroidism
Consultants:
Cardiology
Imaging:
CXR:
1. Suspicion for mild pulmonary vascular congestion.
2. Stable cardiac enlargement.
Echo: Normal LV size with moderately reduced systolic function.
LVEF is 30 to 35% by visual estimation with global diffuse hypokinesis.
Mild concentric LVH.
Normal right ventricular size and function.
Moderate to severe mitral regurgitation.
Mild to moderate aortic stenosis. Moderate aortic regurgitation.
Moderate to severe tricuspid regurgitation.
Estimated pulmonary artery pressure of 48 mmHg, assuming a right atrial
pressure of 3 mmHg.
Compared to prior from October 27, 2021, mitral regurgitation is now moderate to
severe from moderate, aortic regurgitation is moderate from mild , and
tricuspid regurgitation is now moderate to severe from moderate.
Hospital course: 80-year-old female who presented with shortness of breath and weight gain as outlined in the H&P done on admission. ProBNP 8120. CXR above. Patient was diuresed with IV Lasix and her symptoms improved. She was followed by
cardiology. Echocardiogram above. On discharge the patient was given Lasix 40mg twice daily for 3 days then 40mg daily thereafter. She was discharged on 2L NC O2.
Discharge Plan
-
Patient Disposition: Home (Routine Discharge)
Discharge Diagnosis/Procedures: Acute on chronic heart failure with reduced ejection fraction
Condition: Good
Diet: Other diet
Additional Diets: Heart healthy, fluid restrict to 1200 cc/day
Activity: As tolerated
Driving Restrictions: No driving
Bathing Restrictions: None
Blood Work: BMP and CBC in 1 week, prescription from PCP
Specialty Instructions: Weigh Daily- Call MD for wt gain/loss 3 lbs overnight/5 lbs in 1 week
Referrals:
Guicho Klein MD [Family Provider] - in less than 1 week
Prescriptions:
New
furosemide [Lasix] 40 mg tablet
40 mg PO DAILY Qty: 33 0RF
Rx Instructions:
For the first 3 days take 40mg PO BID
Continued
atorvastatin 20 mg Tablet
20 mg PO DAILY
amiodarone 200 mg Tablet
200 mg PO DAILY
aspirin 81 mg Tablet,Delayed Release (Dr/Ec)
81 mg PO DAILY
acetaminophen [Tylenol Extra Strength] 500 mg Tablet
1,000 mg PO Q6H PRN (Reason: mild pain)
carvedilol 3.125 mg Tablet
3.125 mg PO BID
levothyroxine 25 mcg Tablet
25 mcg PO DAILY@1400
potassium chloride [Klor-Con M20] 20 mEq Tablet,Er Particles/Crystals
10 meq PO Q48H@0800
Patient Comments:
08/26/2023, prescribed for pt. to take one tablet daily but pt. takes half tablet Q48H.
cyanocobalamin (vitamin B-12) 500 mcg Tablet
500 mcg PO DAILY
nifedipine 60 mg Tablet Extended Release 24hr
60 mg PO DAILY
losartan 100 mg Tablet
100 mg PO QPM
trltsnztnedd-oltpmfbh-sndpsk Tablet
1 tab PO DAILY
cholecalciferol (vitamin D3) 25 mcg (1,000 unit) Tablet
25 mcg PO DAILY
Discontinued
furosemide 20 mg Tablet
20 mg PO DAILY
Discharge Orders:
Discharge Patient (As Directed); Ordered 08/28/23
Ordered By: John Dc
Discharge Date and Time
Discharge Date/Time: 08/28/23 14:57
Print Language: SLOVAK
--- NOTE | 2023-09-01 13:57 | W.HF.CON ---
Heart Failure
- LV Function
Left ventricular function study result: LV Ejection fraction </= 35%
Ejection Fraction Percentage: 30-35
- ARNI
Patient already on ARNI: No
Heart Failure ARNI Contraindication: Acute Renal Failure, Hypotension
- ACEI/ARB
Patient already on ACEI/ARB: Yes
- Beta Brody
Patient already on Evidence Based Beta Brody: Yes
- Mineralocorticord Receptor Antagonist
Patient already on MRA: No
Heart Failure MRA Contraindication: Acute Renal Insufficiency, Hypotension
- SGLT-2 Inhibitor
Patient already on SGLT-2 Inhibitor: No
Heart Failure SGLT-2 Inhibitor Contraindication: Patient Refusal
- NYHA CHF Classification
NYHA CHF Classification Level: Class III - Symptoms w/ min exertion, interferes w/ nml daily activity
- ACC/AHA Stage
ACC/AHA Stage: Stage C: Symptomatic Heart Failure
== END 2023-08-28 14:57 | disposition home or self-care (01) | DRG 291 ==
LOC: 4 EAST ACU 22:44
PROVIDERS: Clinical Nurse Specialist Family Health; Emergency Medicine; ADMITTING PHYSICIAN General Practice; ATTENDING PHYSICIAN Internal Medicine; CONSULT PHYSICIAN Internal Medicine Cardiovascular Disease; EMERGENCY PHYSICIAN Emergency Medicine; FAMILY PHYSICIAN Family Medicine
DX: I13.0 Hypertensive heart and chronic kidney disease with heart failure and stage 1 through stage 4 chronic kidney disease, or unspecified chronic kidney disease (principal); I50.23 Acute on chronic systolic (congestive) heart failure; N17.9 Acute kidney failure, unspecified; I42.9 Cardiomyopathy, unspecified; E78.00 Pure hypercholesterolemia, unspecified; N18.32 Chronic kidney disease, stage 3b; I25.10 Atherosclerotic heart disease of native coronary artery without angina pectoris; R09.02 Hypoxemia; R06.89 Other abnormalities of breathing; I48.0 Paroxysmal atrial fibrillation; I27.20 Pulmonary hypertension, unspecified; M19.90 Unspecified osteoarthritis, unspecified site; I08.3 Combined rheumatic disorders of mitral, aortic and tricuspid valves; E03.9 Hypothyroidism, unspecified; D69.6 Thrombocytopenia, unspecified; F90.9 Attention-deficit hyperactivity disorder, unspecified type; Z82.49 Family history of ischemic heart disease and other diseases of the circulatory system; Z87.442 Personal history of urinary calculi; Z79.82 Long term (current) use of aspirin; Z63.4 Disappearance and death of family member; Z87.891 Personal history of nicotine dependence; Z86.16 Personal history of COVID-19; Z79.890 Hormone replacement therapy; Z95.1 Presence of aortocoronary bypass graft; Z95.810 Presence of automatic (implantable) cardiac defibrillator
CPT/HCPCS: 71046; 80053; 80061; 83880; 84484; 85025; 93005; 93306; 94760; 96374; 97162; 97166; 99285

== ENCOUNTER → 2023-09-09 06:58 | Outpatient (REF) | payer MEDICARE, SELFPAY | LOC: RAD 06:58 | DX: R05.9 Cough, unspecified (principal); I27.23 Pulmonary hypertension due to lung diseases and hypoxia; I50.9 Heart failure, unspecified; R06.02 Shortness of breath; Z86.16 Personal history of COVID-19 | CPT/HCPCS: 71250 ==

== ENCOUNTER 2023-09-12 13:03 | Inpatient (IN) | payer MEDICARE, SELFPAY ==
[2023-09-12] VITALS (13 sets, daily range): BP systolic 93–131; BP diastolic 45–71; PULSE 78; BMI 20.6; BMI 20.9
[2023-09-12 09:56] LABS: Venous Blood Gas B.E. 10.6 mmol/L (-4 to +4); Venous Blood Gas O2 Sat % 99.7 %; Venous Blood Gas pCO2 57 mmHg (35-48); Venous Blood Gas pH 7.42 (7.32-7.43); Venous Blood Gas pO2 99 mmHg (30-50)
[2023-09-12 09:57] LABS: Venous Blood Gas O2 Therapy on 6L NC
--- NOTE | 2023-09-12 09:59 | ED.GENMED ---
History of Present Illness
General
Chief Complaint: Breathing Problem
Source: patient and family
Exam Limitations: none
Time Seen by Provider: 09/12/23 09:44
History of Present Illness
History of Present Illness:
See MDM
Past History
Past History
ED Past Medical History: Arrthythmia, CAD, CHF, HTN, Hypercholesterolemia and Valvular disease
ED Past Surgical History: Cardiac (CABG, AICD) and Orthopedic
Social History
Tobacco: Former smoker
Alcohol: None
Drug: None
Personal:
Living: alone
Phy Exam
Physical Exam
Physical Exam:
See MDM
Scores
Heart Failure Risk
Heart Failure Risk Score: Yes
History of Stroke or TIA: No
History of intubation for respiratory distress: No
Heart rate on ED arrival >/= 110: No
SaO2 <90% on arrival on room air: Yes
HR >/=110 during 3min walk test (or too ill to perform test): Yes
ECG has acute ischemic changes: No
Urea >/=12mmol/L (BUN 33.6mg/dL): Yes
Serum CO2>/=35mmol/L: No
Troponin I or T elevated to OH Level (0.4mg/dL): No
NT-proBNP >/=5,000ng/L (5,000pg/ml): Yes
HF Risk Score: 5
Admission Status: VERY HIGH RISK 39.8% Consider admission to hospital
Course
Orders/Labs/Results
Orders:
Orders
09/12/23 09:38
Electrocardiogram (*1) Urgent
Reason for Study: Shortness of Breath
09/12/23 09:39
EKG- Treatment ONCE
CXR2 [CR Chest - 2 Views ] Urgent
Comment:
Reason For Exam: shortness of breath
09/12/23 09:48
Complete Blood Count/With Diff Urgent
Comprehensive Metabolic Panel Urgent
NT-proBNP Urgent
Troponin I Urgent
Venous Blood Gas Urgent
%Oxygen/Room Air: 91
Comment: on 6L NC
09/12/23 09:58
Furosemide [Lasix] 40 mg IV NOW STA
Ipratropium/Albuterol Sulfate [Duoneb] 3 ml INH R NOW ONE
09/12/23 10:54
COVID-19 Antigen Urgent
Source: Nasal Swab
Abnormal Lab Results
09/12/23
09:48
WBC 16.6 H 10^3/uL
(4.8-10.8)
RBC 3.60 L 10^6/uL
(4.20-5.40)
Hgb 11.0 L g/dL
(12.0-16.0)
Hct 33.5 L %
(37.0-47.0)
MCHC 32.8 L g/dL
(33.0-37.0)
MPV 10.9 H fL
(7.4-10.4)
Abs Immat Gran (auto) 0.1 H 10^3/uL
(0-0.05)
Absolute Neuts (auto) 14.9 H 10^3/uL
(1.4-6.5)
Absolute Lymphs (auto) 0.5 L 10^3/uL
(1.2-3.4)
Absolute Monos (auto) 1.0 H 10^3/uL
(0.1-0.6)
Neutrophils % 89.9 H %
(42.2-75.2)
Lymphocytes % 3.2 L %
(20.5-51.1)
VBG pCO2 57 H mmHg
(35-48)
VBG pO2 99 H mmHg
(30-50)
VBG HCO3 37.0 H mmol/L
(22-27)
Chloride 94 L mmol/L
(98-107)
Carbon Dioxide 33 H mmol/L
(22-30)
BUN 93 H mg/dl
(7-17)
Creatinine 1.3 H mg/dL
(0.6-1.0)
Glucose 276 H mg/dl
(70-99)
Calcium 11.1 H mg/dl
(8.4-10.2)
Total Protein 6.1 L g/dl
(6.3-8.2)
Albumin 3.2 L g/dl
(3.5-5.0)
09/12/23 09:48
09/12/23 09:48
Vital Signs
Initial and Last Documented VS:
Initial Vital Signs
Temp Pulse Resp BP Pulse Ox
98.1 F 84 24 131/58 74
09/12/23 09:30 09/12/23 09:30 09/12/23 09:30 09/12/23 09:30 09/12/23 09:30
Last Documented Vital Signs
Temp Pulse Resp BP Pulse Ox
98.1 F 72 23 125/60 94
09/12/23 09:30 09/12/23 10:30 09/12/23 10:30 09/12/23 10:15 09/12/23 10:30
MDM/Problems Addressed
Differential Diagnosis Includes:
HPI and MDM Narrative:
88-year-old female presenting with worsening shortness of breath since this morning. Patient was recently admitted last week for CHF exacerbation. She has a history of CHF and was normally on 20 mg of Lasix daily. When she was admitted, she was
placed on 80 mg of Lasix a day for few days and transition to 40 mg daily. She has been taking her medication as prescribed but her shortness of breath has increased. Since her recent admission, she has required supplemental oxygen. Patient was
on 3 L nasal cannula but she is now requiring 5 L on arrival to the emergency department. She had outpatient CT performed showing evidence of pleural effusions, atelectasis and possible pneumonia. Given her ongoing symptoms, will give IV Lasix
and DuoNeb and repeat chest x-ray. Patient will ultimately require readmission
Daughter states that they were told that the patient had COVID soon after she was discharged. However, daughter believes there is could be misinformation. When I looked at the chart, I cannot find any recent COVID diagnosis or testing done
Physical exam
General: Frail, weak
HEENT: protecting airway
Neck: appears supple
CV: No evidence of cyanosis. Regular rate and rhythm
Resp: No accessory muscle use. Poor air exchange
Abd: Non-distended
Extremities: No deformities
Neuro: alert
Psych: Normal affect
Skin: Intact
Problems Addressed including Acute and Chronic Conditions affecting care:
1. Shortness of breath
Acuity: acute
Prognosis: unstable
Details: Likely in setting of recent COVID, CHF exacerbation and COPD. Will give IV Lasix and DuoNeb
2. [ ]
Acuity: acute
Prognosis: stable
Details:
3. [ ]
Acuity: acute
Prognosis: stable
Details:
4. [ ]
Acuity: acute
Prognosis: stable
Details:
5. [ ]
Acuity:
Prognosis:
Details:
Updates
Chest x-ray concerning for pleural effusions and pneumonia. Will start antibiotics.
Differential Diagnosis (but not limited to): Pneumonia, CHF exacerbation
Testing considered: D-dimer
Drug therapy (if applicable): OTC meds, please see d/c instruction regarding Rx drugs
Amount and/or Complexity of Data Reviewed
Clinical info obtained from: Patient
External data reviewed: Recent outpatient CT chest shows pleural effusions, atelectasis and possible pneumonia
Labs I independently reviewed (but not limited to): Leukocytosis
Radiology: X-ray independently reviewed: Chest x-ray with pneumonia and pulmonary edema
Pulse Ox: hypoxic
EKG independently reviewed: Paced rhythm, wide QRS, no STEMI
Floating Operator: Paced rhythm
Critical Care: The high probability of a clinically significant, sudden or life threatening deterioration of the cardiopulmonary system(s) required my full and direct attention, intervention and personal management. The aggregate critical care time
was 33 minutes. This time is in addition to time spent performing reported procedures but includes the following:
[x] Data Review and interpretation
[x] Patient assessment and monitoring of vital signs
[x] Documentation
[x] Medication orders and management
Risk of Complication:
Social Determinants of health: Good social support
Discussed with other providers: N/A
Escalation of Care includes Admit/Obs: After being observed in the Emergency Department, pt stable for discharge.
Occasional wrong word or 'sound a like' substitutions may have occurred due to the inherent limitations of voice recognition software. Read the chart carefully and recognize, using context, where substitutions have occurred.
*Critical Care Note
Total Time (30-74mins, 75-104mins- exclusive of procedures): 33 min
ED Attending Note
-
Portions of this chart may have been created with voice recognition software.� Occasional wrong word or��sound alike� substitutions may have occurred due to the inherent limitations of voice recognition software.
Discharge Plan
Departure
Patient Disposition: Admit
Date of Disposition: 09/12/23
Time of Disposition: 11:01
Admit to: Med/Surg
Presentation/result/management discussed w/ accepting MD/DO: Hospitalist
Discharge Problem:
PNA (pneumonia), Pulmonary edema, Hypoxia
Prescriptions:
No Action
atorvastatin 20 mg Tablet
20 mg PO DAILY
amiodarone 200 mg Tablet
200 mg PO DAILY
aspirin 81 mg Tablet,Delayed Release (Dr/Ec)
81 mg PO DAILY
acetaminophen [Tylenol Extra Strength] 500 mg Tablet
1,000 mg PO Q6H PRN (Reason: mild pain)
carvedilol 3.125 mg Tablet
3.125 mg PO BID
levothyroxine 25 mcg Tablet
25 mcg PO DAILY@1400
potassium chloride [Klor-Con M20] 20 mEq Tablet,Er Particles/Crystals
10 meq PO Q48H@0800
Patient Comments:
08/26/2023, prescribed for pt. to take one tablet daily but pt. takes half tablet Q48H.
cyanocobalamin (vitamin B-12) 500 mcg Tablet
500 mcg PO DAILY
nifedipine 60 mg Tablet Extended Release 24hr
60 mg PO DAILY
losartan 100 mg Tablet
100 mg PO QPM
ovqdlepybuxw-fpnnfirf-hpnfkr Tablet
1 tab PO DAILY
cholecalciferol (vitamin D3) 25 mcg (1,000 unit) Tablet
25 mcg PO DAILY
furosemide [Lasix] 40 mg tablet
40 mg PO DAILY Qty: 33 0RF
Referrals:
Guicho Klein MD [Family Provider] -
Interventions
Interventions:
*Risk Screen - Suicide Last Done: 09/12/23 09:30
*General Assessment Last Done: 09/12/23 09:30
*Neglect/Abuse Screening Last Done: 09/12/23 09:30
ED- Fall Risk Assessment Last Done: 09/12/23 09:50
*ED COVID-19 Vaccine History Last Done: 09/12/23 09:50
ED- Cardiac Assessment Last Done: 09/12/23 09:50
ED- Pulmonary Assessment Last Done: 09/12/23 09:50
Discharge Date and Time
Print Language: ISRAELI
[2023-09-12 10:09] LABS: % Basophils 0.3 % (0-2); % Eosinophils 0.2 % (0-6); % Immature Granulocytes 0.5 % (0-0.5); % Lymphocytes 3.2 % (20.5-51.1); % Monocytes 5.9 % (1.7-9.3); % Neutrophils 89.9 % (42.2-75.2); Absolute Basophils 0.1 10^3/uL (0-0.2); Absolute Immature Granulocytes 0.1 10^3/uL (0-0.05); Absolute Lymphocytes 0.5 10^3/uL (1.2-3.4); Absolute Neutrophils 14.9 10^3/uL (1.4-6.5); Hematocrit 33.5 % (37.0-47.0); Mean Corp Hgb Conc. 32.8 g/dL (33.0-37.0); Mean Corpuscular Hgb 30.6 pg (27.0-31.0); Mean Corpuscular Volume 93.1 fL (81.0-99.0); Mean Platelet Volume 10.9 fL (7.4-10.4); Nucleated Red Blood Cells % 0 %; Platelet Count 256 10^3/uL (130-400); Red Cell Dist. Width 13.2 % (11.5-14.5); White Blood Cell Count 16.6 10^3/uL (4.8-10.8)
[2023-09-12 10:12] LABS: ALT (SGPT) 21 U/L (0-35); AST (SGOT) 24 U/L (14-36); Albumin 3.2 g/dl (3.5-5.0); Alkaline Phosphatase 85 U/L (38-126); Blood Urea Nitrogen 93 mg/dl (7-17); Calcium 11.1 mg/dl (8.4-10.2); Carbon Dioxide 33 mmol/L (22-30); Chloride 94 mmol/L (98-107); Estimated Creatinine Clearance 26 ml/min; Glucose 276 mg/dl (70-99); Potassium 4.9 mmol/L (3.5-5.1); Sodium 137 mmol/L (135-145); Total Bilirubin 0.6 mg/dl (0.2-1.3); Total Protein 6.1 g/dl (6.3-8.2); eGFR 39.55
[2023-09-12] MEDS: DUONEB 3 ML INH ×3 (10:14→20:58)
[2023-09-12] MEDS: LASIX 40 MG IV (10:15)
[2023-09-12 10:23] LABS: NT-proBNP 6950 pg/ml; Troponin I 0.021 ng/ml
[2023-09-12] MEDS: ZOSYN 50 IV (11:27)
[2023-09-12 12:06] LABS: COVID-19 Antigen Negative (Negative)
[2023-09-12] MEDS: VANCOCIN 275 MG IV (12:32)
--- NOTE | 2023-09-12 12:56 | HPS.HSE ---
Family Physician
-
Family Physician: Guicho Klein
Chief Complaint
-
Shortness of breath
History of Present Illness
88-year-old female recently discharged from our hospital on August 27 with a diagnosis of acute heart failure exacerbation, now returns with complaints of increasing shortness of breath.
Was discharged on 2 L nasal cannula oxygen, but currently requiring 6 L in the emergency room, pulse ox 92%. Family states her pulse ox drops into the 70s off oxygen.
Shortness of breath and cough started shortly after discharge 2 weeks ago. Completed a course of prednisone for 5 days and azithromycin last week. Did help but did not resolve her symptoms.
No sick contacts. Patient normally lives independently but since her discharge 2 weeks ago has been staying with her daughter.
Tried to get in to see her primary care doctor after discharge 2 weeks ago but was erroneously told that she has COVID infection when in fact she did not. Therefore, the PCP told her erroneously that she needs to quarantine.
History obtained via patient's daughter as patient is hard of hearing. Family also notes that she does not have any difficulty swallowing or worsening cough with swallowing.
Medical History
Past Medical History
Past Medical History: Reports Other
Additional Past Medical History:
CAD
COPD
Chronic heart failure reduced EF
Valvular heart disease
Essential hypertension
Hypothyroidism
Paroxysmal atrial fibrillation
History of endocarditis
history of COVID infection
Nephrolithiasis
Recurrent C. difficile infection
CKD 3b
Past Surgical History: Reports Other
Additional Past Surgical History:
ICD
CABG -2012
Bilateral wrist ORIF
Left hip replacement 2022
Social History
Tobacco: Former Smoker
Alcohol: None
Drug: None
Personal:
Living: With Family
Family History
Family History: Not pertinent
Allergies / Home Medications
Allergies reflects when Allergies were last updated in [facility].
Home Medications with original date entered in [facility]
Allergy/Medication List:
Allergies
Allergy/AdvReac Type Severity Reaction Status Date / Time
No Known Allergies Allergy Verified 09/12/23 09:29
Home Medications
acetaminophen 500 mg tablet (Tylenol Extra Strength) 1,000 mg PO Q6HPRN PRN mild pain 08/26/23
amiodarone 200 mg tablet 200 mg PO DAILY 08/26/23
aspirin 81 mg tablet,delayed release 81 mg PO DAILY 08/26/23
atorvastatin 20 mg tablet 20 mg PO DAILY 08/26/23
carvedilol 3.125 mg tablet 3.125 mg PO BID 08/26/23
cholecalciferol (vitamin D3) 25 mcg (1,000 unit) tablet 25 mcg PO DAILY 08/26/23
cyanocobalamin (vitamin B-12) 500 mcg tablet 500 mcg PO DAILY 08/26/23
levothyroxine 25 mcg tablet 25 mcg PO DAILY@1400 08/26/23
losartan 100 mg tablet 100 mg PO QPM 08/26/23
igaenmknzoer-mknrdneg-efyfds tablet 1 tab PO DAILY 08/26/23
nifedipine 60 mg tablet,extended release 24 hr 60 mg PO DAILY 08/26/23
potassium chloride 20 mEq tablet,extended release(part/cryst) (Klor-Con M) 10 meq PO MOWEFR 08/26/23
furosemide 40 mg tablet (Lasix) 40 mg PO DAILY #33 tabs 08/28/23
ibuprofen 200 mg capsule 400 mg PO Q4HPRN PRN mild pain 09/12/23
Review of Systems
-
History Source: Patient and Family
A 12 point ROS was completed and negative except as noted: Yes
Respiratory: Reports Cough and Trouble Breathing
Physical Exam
Vital Signs
Vital Signs
Temp Pulse Resp BP Pulse Ox
98.1 F 72 23 125/60 94
09/12/23 09:30 09/12/23 10:30 09/12/23 10:30 09/12/23 10:15 09/12/23 10:30
Physical Exam
General: Well Developed, Well Nourished, No Apparent Distress and Comfortable
HEENT: NormoCephalic, Anicteric and Moist mucous membranes
Respiratory: Rhonchi
Cardiac: S1/S2 and Regular Rhythm
Breast: Deferred by me
GI: Soft, Non Tender and Non Distended
Genito-urinary: Deferred by me
Musculoskeletal: No Clubbing, No Cyanosis and No Edema
Skin: Warm and Dry
Neuro: Awake and Alert
Hematologic/Lymphatic: No Lymphadenopathy
Psych: Calm
Laboratory Results
-
09/12/23 09:48
09/12/23 09:48
Laboratory Results
Total Bilirubin 0.6 mg/dl (0.2-1.3) 09/12/23 09:48
AST 24 U/L (14-36) 09/12/23 09:48
ALT 21 U/L (0-35) 09/12/23 09:48
Alkaline Phosphatase 85 U/L (38-126) 09/12/23 09:48
Troponin I 0.021 ng/ml 09/12/23 09:48
Impression/Plan
-
Acute on chronic hypoxic respiratory failure - requiring 6 L nasal cannula oxygen currently in ED.
Admit to IMU given presentation with respiratory failure, hypotension, potential for deterioration.
Discharged 2 weeks ago on 2 L. Etiology of respiratory failure likely multifactorial including underlying COPD, valvular heart disease, chronic heart failure, etc. Currently given presentation with worsening hypoxia and cough, recent wheezing, top
differential diagnosis is subacute bronchitis versus community-acquired pneumonia versus COPD exacerbation. Doubt heart failure exacerbation given presentation appearing to be euvolemic, BNP is down, weight is down compared to recent
hospitalization. She has been compliant with her Lasix. Blood work consistent with prerenal azotemia. Mobilization of respiratory secretions should be helpful in terms of improving her oxygenation. Chest PT, Acapella, incentive spirometry, deep
breathing exercises should help. She does have a weak cough.
Will consult pulmonary, she is known to Dr. Edwards.
Community-acquired pneumonia -start empiric ceftriaxone, doxycycline. Chest x-ray shows parenchymal opacities within both lower lobes, left greater than right. Atelectasis of the right middle lobe. No signs of pulmonary edema. Recent CT chest
from 09/08 includes similar differential diagnosis of pneumonia versus atelectasis.
Check sputum culture. COVID-19 antigen negative. Leukocytosis noted. Afebrile.
Hyperglycemia -glucose 276 this morning. Rule out DM2. Check hemoglobin A1c.
Chronic heart failure reduced EF -appears to be somewhat volume depleted. Hold furosemide for now and reassess tomorrow.
CKD 3B -baseline creatinine suspected to be 1.4 during recent hospitalization, currently 1.3. However, BUN elevated at 93. Suspect she has a component of prerenal azotemia, volume depletion. Hypercalcemia noted and likely due to volume
contraction. Metabolic alkalosis suspected to be due to contraction alkalosis. Hold furosemide, losartan, nifedipine. Repeat labs in the morning. Discontinue ibuprofen.
COPD without exacerbation -no appreciable wheeze on exam, but low threshold to start systemic steroids. Completed a course of prednisone last week with improvement in her breathing according to family. Use nebs [id number] and as needed.
Paroxysmal atrial fibrillation -On amiodarone. Not on anticoagulation for unclear reasons.
Valvular heart disease -recent echocardiogram done on August 26 showed moderate to severe MR, moderate to severe TR, mild to moderate AAS, moderate AR. Valvular disease appears to have progressed compared to October 2021 echocardiogram.
Essential hypertension -relative hypotension noted. Hold nifedipine, losartan.
Hypothyroidism -continue levothyroxine.
Hyperlipidemia -on atorvastatin.
Normocytic anemia -suspect chronic. Hemoglobin 11.0, appears to be at baseline. Outpatient follow-up.
ICD
Full code
--- NOTE | 2023-09-12 13:12 | CON.PUL ---
Consultation
Consultation Request
Date/Time Consultation Requested: 09/12/23
Date/Time Consultation Performed: 09/12/23
Performing Provider: Jerry
Reason for Consultation: SOB
Medical History
-
History of Present Illness:
Patient is a 88-year-old female with previous history of chronic bronchitis, congestive heart failure with reduced EF, nocturnal hypoxemia (declined sleep study) presenting to with complaints of increasing shortness of breath. She was recently
discharged from 08/28/2023 with acute heart failure exacerbation. She had been discharged on 2 L nasal cannula but currently requiring 6 L in the emergency room. At home she had been desaturating into the 70s. She has a history of nocturnal
hypoxemia for which she has declined sleep study testing or pursuing a CPAP device. Chest x-ray demonstrating bibasilar hazy opacities, proBNP 6950, WBC 16.6, ABG 7.42/57/99.
Son at bedside who provides some history.
Past Medical History
Past Medical History: Other (see list below)
Social History
Tobacco: Non-smoker
Alcohol: None
Drug: None
Family History
Family History: Reviewed & Not Pertinent
Allergies / Home Medications
Allergies
Allergy/AdvReac Type Severity Reaction Status Date / Time
No Known Allergies Allergy Verified 09/12/23 09:29
Home Medications
�Medication �Instructions �Recorded �Confirmed �Last Taken �Type
acetaminophen 500 mg tablet 1,000 mg PO Q6HPRN PRN mild pain 08/26/23 09/12/23 08/25/23 History
(Tylenol Extra Strength)
amiodarone 200 mg tablet 200 mg PO DAILY 08/26/23 09/12/23 09/12/23 History
aspirin 81 mg tablet,delayed 81 mg PO DAILY 08/26/23 09/12/23 09/12/23 History
release
atorvastatin 20 mg tablet 20 mg PO DAILY 08/26/23 09/12/23 09/12/23 History
carvedilol 3.125 mg tablet 3.125 mg PO BID 08/26/23 09/12/23 09/12/23 History
cholecalciferol (vitamin D3) 25 25 mcg PO DAILY 08/26/23 09/12/23 09/12/23 History
mcg (1,000 unit) tablet
cyanocobalamin (vitamin B-12) 500 500 mcg PO DAILY 08/26/23 09/12/23 09/12/23 History
mcg tablet
levothyroxine 25 mcg tablet 25 mcg PO DAILY@1400 08/26/23 09/12/23 09/11/23 History
losartan 100 mg tablet 100 mg PO QPM 08/26/23 09/12/23 09/11/23 History
yxkmhoznbbwu-ibvdcvnw-pnrrpv tablet 1 tab PO DAILY 08/26/23 09/12/23 09/12/23 History
nifedipine 60 mg tablet,extended 60 mg PO DAILY 08/26/23 09/12/23 09/12/23 History
release 24 hr
potassium chloride 20 mEq 10 meq PO MOWEFR 08/26/23 09/12/23 09/10/23 History
tablet,extended
release(part/cryst) (Klor-Con M)
furosemide 40 mg tablet (Lasix) 40 mg PO DAILY #33 tabs 08/28/23 09/12/23 09/12/23 Rx
ibuprofen 200 mg capsule 400 mg PO Q4HPRN PRN mild pain 09/12/23 09/12/23 09/12/23 08:30 History
Review of Systems
-
History Source: Patient
All other systems: Negative unless noted
Vitals / Labs / Diagnostic Testing
Vital Signs
Temp Pulse Resp BP Pulse Ox
98.1 F 72 23 125/60 94
09/12/23 09:30 09/12/23 10:30 09/12/23 10:30 09/12/23 10:15 09/12/23 10:30
Lab Data
09/12/23 09:48
09/12/23 09:48
Diagnostic Testing:
Physical Exam
-
HEENT: Normocephalic and Anicteric
Cardiovascular: S1/S2 and Regular Rhythm
Respiratory: Rales and Non-Labored Respirations
GI: Soft, Non Distended and Non Tender
Neurology: Awake, Alert and Other (lethargic but arousable)
Skin: Warm and Dry
General: Comfortable and Other (NAD, chronically ill appearing)
Assessment
-
Patient is a 88-year-old female with previous history of chronic bronchitis, congestive heart failure with reduced EF, nocturnal hypoxemia (declined sleep study) presenting to with complaints of increasing shortness of breath. She was recently
discharged from 08/28/2023 with acute heart failure exacerbation. She had been discharged on 2 L nasal cannula but currently requiring 6 L in the emergency room. At home she had been desaturating into the 70s. She has a history of nocturnal
hypoxemia for which she has declined sleep study testing or pursuing a CPAP device. Chest x-ray demonstrating bibasilar hazy opacities, proBNP 6950, WBC 16.6, ABG 7.42/57/99.
Acute hypoxic respiratory failure, on 6L NC
Acute HF exacerbation with rEF, proBNP 6950 (prior 8120)
HCAP
Leukocytosis
Acute on chronic SOB
Chronic hypercarbic resp failure
Conditions [employer]:
Adm for COVID infection 05/2022
L hip intertrochanteric fracture, s/p L hip luiz construct for standard intertrochanteric fracture 06-03-[address]
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
HTN
CAD, s/p CABG
HFrEF (35-40%)
Follows cardiology, Dr. De Los Santos
AICD
Recurrent C Diff Colitis
CKD III
Hiatal hernia
Bilateral Wrist ORIF
Former Smoker (quit smoking 37y ago after 20 pack years history)
Pulmonary nodule -- 6.1 mm slightly irregular part solid nodule in the lateral right lower lobe on most recent CT Chest 04/2022, previously measuring 6.3 mm.
Bronchitis, mucopurulent recurrent/yearly
Nocturnal hypoxemia, oximetry test w/ O2 sharmin of 77%, she has declined sleep study
Plan:
At this time, patient appears to be lethargic but arousable
She is placed on 6L NC, she has history of nocturnal hypoxemia
Refused sleep study
Recent admission for AE CHF, has been discharged on 2L NC
CXR reviewed, cannot exclude PNA
Abx is started
Sputum culture if possible
WBC noted, no fevers
Airway clearance measures
Acapella valve, antitussive therapy
Asp precs
Likely has BETZY, nocturnal hypoxemia noted
Declined sleep study
ABG 7.42// showing chronic CO2 retention
Can try CPAP while inpatient
Noted h/o heavy smoking in past
Chest CT with emphysema
Chronic bronchitis yearly
Continue albuterol HFA prn
Acute on chronic HF
CHF mgmt
Lasix per primary service, agree with IV dosing
DVT prophylaxis
PT/OT, deconditioning a factor as well
Reviewed with patient and son at bedside
Recommend pulmonary follow-up
We will follow
Diagnostic tests:
CXR 09/12/23- Parenchymal opacities within both lower lobes, left greater than right, similar to recent CT of the chest. Major differential considerations of atelectasis and/or pneumonia. Band of atelectasis within the right middle lobe, stable from
recent CT of the chest. Cardiomegaly with no findings to suggest pulmonary edema/active vascular congestion. Of note, dilation of the thoracic aorta is present on recent CT of the chest, with measurements given on that report, and this dilation is
more difficult to visualize radiographically.
CXR 06-05-22, c/w 05-08-22, Oct. portable films, blurred R diaphragm, no gross infiltrate\\
CT CHEST 09/09/23- Minimal posterior left pleural effusion, similar to previous CT examination of May 09, 2022. Interval development of confluent parenchymal airspace opacities within the posterior aspect of both lower lobes, most likely
representing atelectasis. Pneumonia is difficult to exclude by imaging alone. Band of atelectasis within the right middle lobe, extending along the superior margin of the major fissure, new. Mild associated bronchiectasis. Thin linear densities
within the anterior and inferior aspect of the right upper lobe, slightly increased from previous examination, and likely representing atelectasis. Moderate hiatal hernia/partially intrathoracic stomach, extending into the medial and inferior aspect
of the right hemithorax. Moderate to severe calcification of the thoracic aorta. Tortuosity and dilation of the thoracic aorta, which is stable on direct comparison, with measurements given above. Stable compression deformity of the T8 vertebral
body. No evidence for new compression deformity.
Chest CT s/c 05-09-22 IMPRESSION: Ascending aortic aneurysmal dilatation measuring up to 5 cm. Aneurysmal dilatation of the aortic arch, 3.8 cm. Diffuse ectasia of the descending thoracic aorta. 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
the aortic hiatus, 4 cm. Progressive peribronchial thickening in the left lower lobe with associated bronchial luminal encroachment and mucous plugging. Minor atelectasis in the posterior lung bases, left greater than right. No evidence of pneumonia.
Global cardiomegaly. Hiatal hernia. Stable small nonspecific semisolid nodule in the lateral right lower lobe measuring 6.1 mm.
ECHO 08/27/23- Normal LV size with moderately reduced systolic function. LVEF is 30 to 35% by visual estimation with global diffuse hypokinesis. Mild concentric LVH. Normal right ventricular size and function. Moderate to severe mitral
regurgitation.
Mild to moderate aortic stenosis. Moderate aortic regurgitation. Moderate to severe tricuspid regurgitation. Estimated pulmonary artery pressure of 48 mmHg, assuming a right atrial pressure of 3 mmHg. Compared to prior from October 27, 2021,
mitral regurgitation is now moderate to severe from moderate, aortic regurgitation is moderate from mild , and tricuspid regurgitation is now moderate to severe from moderate.
TTE 10-27-21 CONCLUSIONS: Moderately reduced left ventricular systolic function. Estimated left ventricular ejection fraction is 35-40%. Moderate aortic stenosis.Mild aortic regurgitation. Thickened mitral valve with MAC and echodensities on
ventricular side of the valve. Cannot exclude vegetation. Moderate tricuspid regurgitation. Moderate mitral regurgitation. Pulmonary hypertension. No prior study available for comparison.
--- NOTE | 2023-09-12 16:15 | PTCARENOTE ---
Patient received from the ED. 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 AAO, VSS aside from patients POX. Patient received on 6L N/C, sats high 80's. Increased to 7L midflow. Respiratory therapy in the room, assessing need for further increase.
Patients daughter at bedside. Orders reviewed. Oriented to room. Call lundberg in reach.
[2023-09-12] MEDS: SYNTHROID 25 MCG PO (16:44)
[2023-09-12] MEDS: STERILE WATER FOR INJECTION 10 ML IV (16:51)
[2023-09-12] MEDS: ROCEPHIN 1000 MG IV (16:52)
[2023-09-12] MEDS: TYLENOL 1000 MG PO (16:53)
--- NOTE | 2023-09-12 16:56 | RESPNOTE ---
Patient educated on nebulizer/medication, Incentive Spirometer, Chest PT via the Vest and PEP/Acapella device. Tolerated therapies well. Patient with weak NPC. O2 10 LPM mid-flow SpO2 92-93%.
[2023-09-12] MEDS: COREG 3.125 MG PO (20:15)
[2023-09-12] MEDS: VIBRAMYCIN 100 MG PO (20:16)
[2023-09-12] MEDS: HEPARIN 5000 UNITS SC (20:16)
[2023-09-13] VITALS (14 sets, daily range): BP systolic 102–153; BP diastolic 45–79; PULSE 75–78; O2SAT 95–96; BMI 20.9
[2023-09-13 06:15] LABS: % Basophils 0.3 % (0-2); % Eosinophils 0.6 % (0-6); % Immature Granulocytes 0.9 % (0-0.5); % Lymphocytes 4.1 % (20.5-51.1); % Neutrophils 89.1 % (42.2-75.2); Absolute Eosinophils 0.1 10^3/uL (0-0.7); Absolute Immature Granulocytes 0.1 10^3/uL (0-0.05); Absolute Lymphocytes 0.6 10^3/uL (1.2-3.4); Absolute Monocytes 0.8 10^3/uL (0.1-0.6); Absolute Neutrophils 13.5 10^3/uL (1.4-6.5); Hematocrit 34.4 % (37.0-47.0); Hemoglobin 11.2 g/dL (12.0-16.0); Mean Corp Hgb Conc. 32.6 g/dL (33.0-37.0); Mean Corpuscular Hgb 30.6 pg (27.0-31.0); Mean Platelet Volume 10.9 fL (7.4-10.4); Nucleated Red Blood Cells % 0 %; Platelet Count 250 10^3/uL (130-400); Red Blood Cell Count 3.66 10^6/uL (4.20-5.40); Red Cell Dist. Width 13.2 % (11.5-14.5); White Blood Cell Count 15.1 10^3/uL (4.8-10.8)
[2023-09-13 06:40] LABS: Blood Urea Nitrogen 96 mg/dl (7-17); Calcium 10.6 mg/dl (8.4-10.2); Carbon Dioxide 34 mmol/L (22-30); Chloride 96 mmol/L (98-107); Estimated Creatinine Clearance 26 ml/min; Glucose 223 mg/dl (70-99); Potassium 4.4 mmol/L (3.5-5.1); Sodium 138 mmol/L (135-145); eGFR 39.55
[2023-09-13 08:04] LABS: Glycohemoglobin (HgbA1c) 7.5 % (4.0-5.6)
[2023-09-13] MEDS: DUONEB 3 ML INH ×4 (08:08→20:21)
[2023-09-13] MEDS: TYLENOL 1000 MG PO ×2 (09:02→19:22)
[2023-09-13] MEDS: ASPIR LOW (ENTERIC COATED) 81 MG PO (09:02)
[2023-09-13] MEDS: LIPITOR 20 MG PO (09:02)
[2023-09-13] MEDS: VIBRAMYCIN 100 MG PO ×2 (09:02→20:59)
[2023-09-13] MEDS: COREG 3.125 MG PO ×2 (09:02→20:59)
[2023-09-13] MEDS: VITAMIN B-12 500 MCG PO (09:03)
[2023-09-13] MEDS: VITAMIN D3 (cholecalciferol) 25 MCG PO (09:03)
[2023-09-13] MEDS: THERAGRAN 1 TABLET PO (09:04)
[2023-09-13] MEDS: PACERONE 200 MG PO (09:05)
[2023-09-13] MEDS: HEPARIN 5000 UNITS SC ×2 (09:05→21:00)
--- NOTE | 2023-09-13 12:43 | W.PN.PUL3 ---
Today's Communication / Plan
-
Antibiotics
Start nebulized bronchodilators + budesonide
If patient derives benefit from nebulizers then consult case checker for a nebulizer at home
Up OOB as tolerated
Mucolytics with mucinex and vest therapy + flutter valve
PT/OT as pt only pulling ~1,000 L from IS, which is very low
Assessment
-
Patient is a 88-year-old female with previous history of chronic bronchitis, congestive heart failure with reduced EF, nocturnal hypoxemia (declined sleep study) presenting to with complaints of increasing shortness of breath. She was recently
discharged from 08/28/2023 with acute heart failure exacerbation. She had been discharged on 2 L nasal cannula but currently requiring 6 L in the emergency room. At home she had been desaturating into the 70s. She has a history of nocturnal
hypoxemia for which she has declined sleep study testing or pursuing a CPAP device. Chest x-ray demonstrating bibasilar hazy opacities, proBNP 6950, WBC 16.6, ABG 7.42/57/99.
Impression:
Acute hypoxic respiratory failure, on 8L NC
Acute HF exacerbation with rEF, proBNP 6950 (prior 8120)
HCAP involving RML, medial RLL + LLL- believe this is the main component causing her SOB based on CT chest from 09/09/2023
Leukocytosis
Acute on chronic SOB
Chronic hypercarbic resp failure
Acute kidney injury
DM typee II with A1C: 7.5 on 09/12/2023
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
Adm for COVID infection 05/2022
L hip intertrochanteric fracture, s/p L hip luiz construct for standard intertrochanteric fracture 06-03-[address] with moderate COPD (normal DLco/VA of 97%, with DLco: 64% via PFT from 09/2022)
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
HTN
CAD, s/p CABG
HFrEF (35-40%)
Follows cardiology, Dr. De Los Santos
AICD
Recurrent C Diff Colitis
CKD III
Hiatal hernia
Bilateral Wrist ORIF
Former Smoker (quit smoking 37y ago after 20 pack years history)
Pulmonary nodule -- 6.1 mm slightly irregular part solid nodule in the lateral right lower lobe on most recent CT Chest 04/2022, previously measuring 6.3 mm.
Bronchitis, mucopurulent recurrent/yearly
Nocturnal hypoxemia, oximetry test w/ O2 sharmin of 77%, she has declined sleep study
Plan:
Patient's mental status has improved and is no longer lethargic to she is awake, alert and answering my questions appropriately today
She has history of nocturnal hypoxemia
Refused sleep study
Recent admission for AE CHF, was discharged on 2L NC on 08/28/2023
CXR reviewed, cannot exclude PNA
Abx is started -currently on ceftriaxone + Doxy s/p 1 dose of Zosyn on admission
Sputum culture if possible
WBC noted, no fevers
Airway clearance measures
Acapella valve, antitussive therapy
Asp precs
High risk for BETZY, nocturnal hypoxemia noted
Declined sleep study -this can be discussed as an outpatient
ABG 7. showing chronic CO2 retention
Patient did not tolerate CPAP � I will discontinue this now
Noted h/o heavy smoking in past
Chest CT with mild centrilobular emphysema and bronchial wall thickening, and patient does endorse frequent sputum production
Chronic bronchitis
Continue albuterol HFA prn
Given her PFT findings of normal DLco/VA of 97%, with DLco: 64% via PFT from 09/2022, this is concerning for a component of asthma, especially with her bronchial wall thickening. I will thus start her on DuoNebs + budesonide
- If she improves with nebulized bronchodilators then we should set her up for nebulizer at home
Acute on chronic HF s/p lasix 40mg IVP x1 on 09/12/2023 --> currently stopped due to CARLOS
CHF mgmt
Lasix per primary service
DVT prophylaxis
PT/OT, deconditioning a factor as well (PT/OT as pt only pulling ~1,000 L from IS, which is very low)
Reviewed with patient and daughter at bedside
Recommend pulmonary follow-up
We will follow
Total time spent today was 50 minutes for this encounter. Time includes reviewing laboratory test/imaging results, reviewing pertinent medical records, obtaining and reviewing medical history, performing an appropriate exam, ordering medications,
tests and procedures. Time also includes documentation of this encounter, coordinating patient care and communicating with other healthcare professionals. Total time does not include separately billed tests performed on this date of service.
Diagnostic tests:
CXR 09/12/23- Parenchymal opacities within both lower lobes, left greater than right, similar to recent CT of the chest. Major differential considerations of atelectasis and/or pneumonia. Band of atelectasis within the right middle lobe, stable from
recent CT of the chest. Cardiomegaly with no findings to suggest pulmonary edema/active vascular congestion. Of note, dilation of the thoracic aorta is present on recent CT of the chest, with measurements given on that report, and this dilation is
more difficult to visualize radiographically.
CXR 06-05-22, c/w , 05-08-22, Oct. portable films, blurred R diaphragm, no gross infiltrate\\
CT CHEST 09/09/23- Minimal posterior left pleural effusion, similar to previous CT examination of May 09, 2022. Interval development of confluent parenchymal airspace opacities within the posterior aspect of both lower lobes, most likely
representing atelectasis. Pneumonia is difficult to exclude by imaging alone. Band of atelectasis within the right middle lobe, extending along the superior margin of the major fissure, new. Mild associated bronchiectasis. Thin linear densities
within the anterior and inferior aspect of the right upper lobe, slightly increased from previous examination, and likely representing atelectasis. Moderate hiatal hernia/partially intrathoracic stomach, extending into the medial and inferior aspect
of the right hemithorax. Moderate to severe calcification of the thoracic aorta. Tortuosity and dilation of the thoracic aorta, which is stable on direct comparison, with measurements given above. Stable compression deformity of the T8 vertebral
body. No evidence for new compression deformity.
Chest CT s/c 05-09-22 IMPRESSION: Ascending aortic aneurysmal dilatation measuring up to 5 cm. Aneurysmal dilatation of the aortic arch, 3.8 cm. Diffuse ectasia of the descending thoracic aorta. 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
the aortic hiatus, 4 cm. Progressive peribronchial thickening in the left lower lobe with associated bronchial luminal encroachment and mucous plugging. Minor atelectasis in the posterior lung bases, left greater than right. No evidence of pneumonia.
Global cardiomegaly. Hiatal hernia. Stable small nonspecific semisolid nodule in the lateral right lower lobe measuring 6.1 mm.
ECHO 08/27/23- Normal LV size with moderately reduced systolic function. LVEF is 30 to 35% by visual estimation with global diffuse hypokinesis. Mild concentric LVH. Normal right ventricular size and function. Moderate to severe mitral
regurgitation.
Mild to moderate aortic stenosis. Moderate aortic regurgitation. Moderate to severe tricuspid regurgitation. Estimated pulmonary artery pressure of 48 mmHg, assuming a right atrial pressure of 3 mmHg. Compared to prior from October 27, 2021,
mitral regurgitation is now moderate to severe from moderate, aortic regurgitation is moderate from mild , and tricuspid regurgitation is now moderate to severe from moderate.
TTE 10-27-21 CONCLUSIONS: Moderately reduced left ventricular systolic function. Estimated left ventricular ejection fraction is 35-40%. Moderate aortic stenosis.Mild aortic regurgitation. Thickened mitral valve with MAC and echodensities on
ventricular side of the valve. Cannot exclude vegetation. Moderate tricuspid regurgitation. Moderate mitral regurgitation. Pulmonary hypertension. No prior study available for comparison.
Subjective Data
-
Date of Service:
Date of Service: September 13, 2023
Chief Complaint: Pulmonary Follow Up
Subjective:
Patient seen today with daughter at bedside. She is on 8 L/min nasal cannula breathing comfortably with SpO2 91%, heart rate 81 and BP 128/74. She wore the CPAP overnight but did not like it and would not like to wear it again tonight. Patient
continues to have a wet sounding cough. Patient denies chest pain, headache, abdominal pain, fevers or chills.
Review of Systems
General: Other (Negative unless mentioned above)
Objective Data
Data Reviewed
Vital Signs / I&O / Oxygen:
Vital Signs
Temp Pulse Resp BP Pulse Ox
97.8 F 78 26 108/57 92
09/13/23 11:00 09/13/23 12:00 09/13/23 12:00 09/13/23 12:00 09/13/23 12:00
Intake and Output
09/12/23 09/13/23 09/14/23
06:59 06:59 06:59
Intake Total 480 / 480
Output Total 450 / 450
Balance
SaO2 92
Nasal Cannula flow liters per 95
minute
Physical Exam
General: Respiratory Distress (Negative) and Comfortable
HEENT: Normocephalic and Anicteric
Cardiovascular: S1-S2 and Peripheral Edema (Negative)
Respiratory: Wheeze (Negative), Crackles (Bilateral in the bases), Rhonchi (Negative) and Non-Labored Respirations
GI: Soft, Non Distended, Non Tender and Normal Bowel Sounds
Neurology: Awake and Alert
Skin: Warm, Dry and Jaundice (Negative)
Labs/Micro/Reports
Lab Data
09/13/23 05:57
09/13/23 05:57
[2023-09-13] MEDS: SYNTHROID PO (14:01)
--- NOTE | 2023-09-13 14:56 | W.PN.HOSP.TC ---
Today's Communication/Plan
-
abx
f/u cultures
wean o2
hold lasix again
Assessment / Plan
Assessment / Plan
Physical Exam
General: Well Developed, Well Nourished, No Apparent Distress and Comfortable
HEENT: NormoCephalic, Anicteric and Moist mucous membranes
Respiratory: Distant breath sounds
Cardiac: S1/S2 and Regular Rhythm
Breast: Deferred by me
GI: Soft, Non Tender and Non Distended
Genito-urinary: Deferred by me
Musculoskeletal: No Clubbing, No Cyanosis and No Edema
Skin: Warm and Dry
Neuro: Awake and Alert
Hematologic/Lymphatic: No Lymphadenopathy
Psych: Calm
#Acute on chronic hypoxic respiratory failure
-2/2 to pneumonia; less likely acute hf at this time
-DCed on 2L prior
-wean o2 as tolerated; goal o2 >88%
-cont abx
-incentive shukri, acapella
-DUonebs
-F/u Pulm
#Sepsis
#Pneumonia, CAP v bronchitis
-cont abx - broaden if decompensates
-f/u sputum cultures
#Chronic heart failure reduced EF
-appears to be somewhat volume depleted.
Hold furosemide for now and reassess tomorrow.
#CKD 3B -baseline creatinine suspected to be 1.4 during recent hospitalization, currently 1.3.
- Suspect she has a component of prerenal azotemia, volume depletion.
-Hypercalcemia noted and likely due to volume contraction.
-Metabolic alkalosis suspected to be due to contraction alkalosis.
-Hold furosemide, losartan, nifedipine.
-Discontinue ibuprofen.
#COPD without exacerbation
-no appreciable wheeze on exam, but low threshold to start systemic steroids.
-Completed a course of prednisone last week with improvement in her breathing according to family. Use nebs [id number] and as needed.
#Paroxysmal atrial fibrillation -On amiodarone. Not on anticoagulation for unclear reasons.
#Valvular heart disease -recent echocardiogram done on August 26 showed moderate to severe MR, moderate to severe TR, mild to moderate AAS, moderate AR. Valvular disease appears to have progressed compared to October 2021 echocardiogram.
#Essential hypertension -relative hypotension noted. Hold nifedipine, losartan.
#Hypothyroidism -continue levothyroxine.
#Hyperlipidemia -on atorvastatin.
#Normocytic anemia -suspect chronic. Hemoglobin 11.0, appears to be at baseline. Outpatient follow-up.
#Hyperglycemia Check hemoglobin A1c 7.5; Sliding scale
#Likely BETZY
-nocturnal hypoxemia noted
-Declined sleep study
#DVT ppx - HSQ
Full code
Total time spent on today's encounter was 50 minutes which included time spent in counseling the patient/family regarding diagnosis and treatment plan as listed above, goals of care, and symptom management. Case was discussed with nursing staff,
specialists, and care coordinators/case management. All labs and imaging personally reviewed by me. Remainder the time spent in detailed review of previous records, lab data, imaging, and other medical provider documentation.
Anticipated Discharge: > 48 hours
Subjective/Interval History
-
Date of Service: September 13, 2023
On mid flow this morning
Objective Data
-
Labs:
Laboratory Results
09/13/23
05:57
WBC 15.1 H
Hgb 11.2 L
Hct 34.4 L
Plt Count 250
Sodium 138
Potassium 4.4
Chloride 96 L
Carbon Dioxide 34 H
BUN 96 H
Creatinine 1.3 H
Glucose 223 H
Calcium 10.6 H
Vital Signs:
Vital Signs
Temp Pulse Resp BP Pulse Ox
97.8 F 78 26 108/57 92
09/13/23 11:00 09/13/23 12:00 09/13/23 12:00 09/13/23 12:00 09/13/23 12:00
I&O
09/12/23 09/13/23 09/14/23
06:59 06:59 06:59
Intake Total 480 / 480
Output Total 450 / 450
Balance
Review of Systems
-
History Source: Patient
All other systems: Reviewed and negative
Physical Exam
-
General: No Apparent Distress
HEENT: Moist Mucous Membranes
Respiratory: Clear to Auscultation (Anterior auscultation)
Cardiac: S1/S2 and Irregular Rhythm; Negative Tachycardic
GI: Soft, Nontender, Nondistended and Normal Bowel Sounds
Musculoskeletal: Other (Left arm painful in the distal part of some painful range of motion's in the left elbow)
Neuro: AO x 3
Psych: Calm
Data Reviewed
-
Labs: Labs Reviewed by me
--- NOTE | 2023-09-13 15:02 | CM ---
CM reviewed patient's chart. Patient sitting up in recliner. Daughter also at bedside. Daughter informed CM that patient is very [employer] and extremely tired, but alert and oriented. CM introduced self and role. CM spoke with patient and daughter at
bedside.
Patient's daughter assisted with assessment. Patient was just discharged on 08/27 with 2L of 02, supplied by [employer]. It was confirmed patient is still living with her daughter. Her daughter has been able to assist her mom with her ADLs. Daughter also
shared that her daughter (patient's grand daughter), is also an occupational therapist.
PCP: Dr. Guicho Klein
Pharmacy: [facility]
Living situation: Patient has a a 3-story home and has a 1st floor set up. She has 3 steps to enter into the home. Her bathroom is handicap accessible. She is currently living with her daughter, who is a nurse, and has been able to assist patient
with her needs
Finances: Patient denies any social insecurities. She is able to afford his housing, clothing, medications, food, utilities and transportation.
DME/Ambulation: Patient owns a walker, wheelchair and cane at home. Patient has been walking with some assistance with her walker. Has home 02 with [employer].
Transportation: Before patient's previous admission, she was able to drive. Daughter is currently providing transportation.
Agreeable to home health care?: Daughter and patient would like patient to return home. They would only want VN if, per daughter, 'I could not handle caring for her alone. Right now we are ok and I think she'll be ok to return home'.
Case management spoke with patient and daughter about discharge plan. Caregiver and patient verbalized understanding.
ANTICIPATED DISCHARGE DISPOSITION:
Return to home with daughter and home 02 with [employer].
CM will continue to follow case and available for further assistance.
[2023-09-13] MEDS: ROCEPHIN 1000 MG IV (16:51)
[2023-09-13] MEDS: FLUSH (NSS) 2 FLUSH IV (16:51)
[2023-09-13] MEDS: STERILE WATER FOR INJECTION 10 ML IV (16:51)
[2023-09-13 17:36] LABS: Glucose - Point of Care 311 mg/dl (70-99)
--- NOTE | 2023-09-13 18:30 | PTCARENOTE ---
Patient remains on midflow oxygen 8-10L, SPO2 91-94%. Patient SOB on exertion and desaturates 86-87%, takes a while to recover. Moist cough starting to become a little productive. IS and acapella at bedside. Patient sat OOB to chair all day
today.
[2023-09-13] MEDS: NOVOLOG FLEXPEN-LOW RESISTANCE 4 UNITS SC (19:21)
[2023-09-13] MEDS: PULMICORT 0.5 MG INH (20:21)
[2023-09-13] MEDS: MUCINEX 1200 MG PO (20:59)
[2023-09-13 21:51] LABS: Glucose - Point of Care 258 mg/dl (70-99)
[2023-09-14] VITALS (14 sets, daily range): BP systolic 107–145; BP diastolic 53–110; PULSE 73; O2SAT 99; BMI 20.7
[2023-09-14] MEDS: SYNTHROID 25 MCG PO (05:07)
[2023-09-14] MEDS: TYLENOL 1000 MG PO ×3 (05:08→20:59)
--- NOTE | 2023-09-14 05:27 | PTCARENOTE ---
Midflow NC titrated 10-15L(CPAP order discontinued). Sp02 decreases to 87% upon exertion, pt recovers after several minutes to 90-92%. Moist cough continues. Pt states she was able to sleep a bit. Tele showing mostly v-paced rhythm, BBB, PVCs.
Purewick in place, voiding adequate yellow urine. No BM, hypoactive bowel sounds. Swallows pills w/o issues. Encouraged to reposition self while in bed. Foam Mepilex to sacrum. Tylenol provided per pt request for 8/10 headache this morning. Pt
appreciative of care. Call lundberg and tray table within reach. Pt using IS and acapella independently. Joslyn(daughter) called overnight for update.
[2023-09-14 07:10] LABS: Glucose - Point of Care 218 mg/dl (70-99)
[2023-09-14] MEDS: DUONEB 3 ML INH ×4 (07:53→20:18)
[2023-09-14] MEDS: PULMICORT 0.5 MG INH ×2 (07:53→20:19)
[2023-09-14] MEDS: NOVOLOG FLEXPEN-LOW RESISTANCE 2 UNITS SC (09:12)
[2023-09-14] MEDS: VITAMIN D3 (cholecalciferol) 25 MCG PO (09:12)
[2023-09-14] MEDS: THERAGRAN 1 TABLET PO (09:13)
[2023-09-14] MEDS: VITAMIN B-12 500 MCG PO (09:13)
[2023-09-14] MEDS: PACERONE 200 MG PO (09:13)
[2023-09-14] MEDS: VIBRAMYCIN 100 MG PO ×2 (09:14→20:59)
[2023-09-14] MEDS: LIPITOR 20 MG PO (09:14)
[2023-09-14] MEDS: MUCINEX 1200 MG PO ×2 (09:14→20:59)
[2023-09-14] MEDS: ASPIR LOW (ENTERIC COATED) 81 MG PO (09:14)
[2023-09-14] MEDS: COREG 3.125 MG PO ×2 (09:15→21:00)
[2023-09-14] MEDS: HEPARIN 5000 UNITS SC ×2 (09:15→21:00)
[2023-09-14] MEDS: NOVOLOG FLEXPEN-LOW RESISTANCE 4 UNITS SC (11:59)
[2023-09-14 12:02] LABS: Glucose - Point of Care 300 mg/dl (70-99)
--- NOTE | 2023-09-14 12:13 | W.PN.PUL3 ---
Today's Communication / Plan
-
Antibiotics
Continue nebulized bronchodilators + budesonide
Consult CM to get her neb machine at home
Up OOB as tolerated
Mucolytics with mucinex and vest therapy + flutter valve
PT/OT as pt only pulling ~1,000 L from IS, which is very low
Assessment
-
Patient is a 88-year-old female with previous history of chronic bronchitis, congestive heart failure with reduced EF, nocturnal hypoxemia (declined sleep study) presenting to with complaints of increasing shortness of breath. She was recently
discharged from 08/28/2023 with acute heart failure exacerbation. She had been discharged on 2 L nasal cannula but currently requiring 6 L in the emergency room. At home she had been desaturating into the 70s. She has a history of nocturnal
hypoxemia for which she has declined sleep study testing or pursuing a CPAP device. Chest x-ray demonstrating bibasilar hazy opacities, proBNP 6950, WBC 16.6, ABG 7.42/57/99.
Impression:
Acute hypoxic respiratory failure, on 12L/min midflow NC
Acute HF exacerbation with rEF, proBNP 6950 (prior 8120)
HCAP involving RML, medial RLL + LLL- believe this is the main component causing her SOB based on CT chest from 09/09/2023
Leukocytosis
Acute on chronic SOB
Chronic hypercarbic resp failure
Acute kidney injury
DM type II with A1C: 7.5 on 09/12/2023
Conditions [employer]:
Adm for COVID infection 05/2022
L hip intertrochanteric fracture, s/p L hip luiz construct for standard intertrochanteric fracture 06-03-[address] with moderate COPD (normal DLco/VA of 97%, with DLco: 64% via PFT from 09/2022)
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
HTN
CAD, s/p CABG
HFrEF (35-40%)
Follows cardiology, Dr. De Los Santos
AICD
Recurrent C Diff Colitis
CKD III
Hiatal hernia
Bilateral Wrist ORIF
Former Smoker (quit smoking 37y ago after 20 pack years history)
Pulmonary nodule -- 6.1 mm slightly irregular part solid nodule in the lateral right lower lobe on most recent CT Chest 04/2022, previously measuring 6.3 mm.
Bronchitis, mucopurulent recurrent/yearly
Nocturnal hypoxemia, oximetry test w/ O2 sharmin of 77%, she has declined sleep study
Plan:
Patient's mental status has improved and is no longer lethargic - she is awake, alert and answering my questions appropriately today
She has history of nocturnal hypoxemia
Previously refused sleep study
Recent admission for AE CHF, was discharged on 2L NC on 08/28/[address] chest from 09/09/2023 shows multifocal pneumonia
Abx started -currently on ceftriaxone + Doxy s/p 1 dose of Zosyn on admission
Sputum culture obtained on 09/13/2023 � preliminarily shows usual respiratory gume
WBC noted, no fevers; trend WBC
Airway clearance measures --> continue vest
Acapella valve, antitussive therapy
Asp precs
High risk for BETZY, nocturnal hypoxemia noted
Declined sleep study -this can be discussed as an outpatient
ABG 7.42// showing chronic CO2 retention
Patient did not tolerate CPAP � I discontinue this on 09/12
Noted h/o heavy smoking in past
Chest CT with mild centrilobular emphysema and bronchial wall thickening, and patient does endorse frequent sputum production
Chronic bronchitis
Continue albuterol HFA prn
Given her PFT findings of normal DLco/VA of 97%, with DLco: 64% via PFT from 09/2022, this is concerning for a component of asthma, especially with her bronchial wall thickening. I started her on DuoNebs + budesonide, and she seems to enjoy this and
i deriving a benefit from nebulized bronchodilators
- Consult CM to set her up for nebulizer at home
Acute on chronic HF s/p lasix 40mg IVP x1 on 09/12/2023 --> currently stopped due to CARLOS
CHF mgmt
Lasix per primary service
DVT prophylaxis
PT/OT, deconditioning a factor as well (PT/OT as pt only pulling ~1,000 L from IS, which is very low)
Reviewed with patient and daughter at bedside
Recommend pulmonary follow-up
We will follow
Total time spent today was 50 minutes for this encounter. Time includes reviewing laboratory test/imaging results, reviewing pertinent medical records, obtaining and reviewing medical history, performing an appropriate exam, ordering medications,
tests and procedures. Time also includes documentation of this encounter, coordinating patient care and communicating with other healthcare professionals. Total time does not include separately billed tests performed on this date of service.
Diagnostic tests:
CXR 09/12/23- Parenchymal opacities within both lower lobes, left greater than right, similar to recent CT of the chest. Major differential considerations of atelectasis and/or pneumonia. Band of atelectasis within the right middle lobe, stable from
recent CT of the chest. Cardiomegaly with no findings to suggest pulmonary edema/active vascular congestion. Of note, dilation of the thoracic aorta is present on recent CT of the chest, with measurements given on that report, and this dilation is
more difficult to visualize radiographically.
CXR 06-05-22, c/w , 05-08-22, Oct. portable films, blurred R diaphragm, no gross infiltrate\\
CT CHEST 09/09/23- Minimal posterior left pleural effusion, similar to previous CT examination of May 09, 2022. Interval development of confluent parenchymal airspace opacities within the posterior aspect of both lower lobes, most likely
representing atelectasis. Pneumonia is difficult to exclude by imaging alone. Band of atelectasis within the right middle lobe, extending along the superior margin of the major fissure, new. Mild associated bronchiectasis. Thin linear densities
within the anterior and inferior aspect of the right upper lobe, slightly increased from previous examination, and likely representing atelectasis. Moderate hiatal hernia/partially intrathoracic stomach, extending into the medial and inferior aspect
of the right hemithorax. Moderate to severe calcification of the thoracic aorta. Tortuosity and dilation of the thoracic aorta, which is stable on direct comparison, with measurements given above. Stable compression deformity of the T8 vertebral
body. No evidence for new compression deformity.
Chest CT s/c 05-09-22 IMPRESSION: Ascending aortic aneurysmal dilatation measuring up to 5 cm. Aneurysmal dilatation of the aortic arch, 3.8 cm. Diffuse ectasia of the descending thoracic aorta. 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
the aortic hiatus, 4 cm. Progressive peribronchial thickening in the left lower lobe with associated bronchial luminal encroachment and mucous plugging. Minor atelectasis in the posterior lung bases, left greater than right. No evidence of pneumonia.
Global cardiomegaly. Hiatal hernia. Stable small nonspecific semisolid nodule in the lateral right lower lobe measuring 6.1 mm.
ECHO 08/27/23- Normal LV size with moderately reduced systolic function. LVEF is 30 to 35% by visual estimation with global diffuse hypokinesis. Mild concentric LVH. Normal right ventricular size and function. Moderate to severe mitral
regurgitation.
Mild to moderate aortic stenosis. Moderate aortic regurgitation. Moderate to severe tricuspid regurgitation. Estimated pulmonary artery pressure of 48 mmHg, assuming a right atrial pressure of 3 mmHg. Compared to prior from October 27, 2021,
mitral regurgitation is now moderate to severe from moderate, aortic regurgitation is moderate from mild , and tricuspid regurgitation is now moderate to severe from moderate.
TTE 10-27-21 CONCLUSIONS: Moderately reduced left ventricular systolic function. Estimated left ventricular ejection fraction is 35-40%. Moderate aortic stenosis.Mild aortic regurgitation. Thickened mitral valve with MAC and echodensities on
ventricular side of the valve. Cannot exclude vegetation. Moderate tricuspid regurgitation. Moderate mitral regurgitation. Pulmonary hypertension. No prior study available for comparison.
Subjective Data
-
Date of Service:
Date of Service: September 14, 2023
Chief Complaint: Pulmonary Follow Up
Subjective:
Patient seen and evaluated today at bedside. Daughter at bedside. Patient using vest and she says she feels better today with no shortness of breath at rest or cough. She does feel winded when she exerts herself, however. Currently saturating
95% on 12 L/min midflow NC, BP 127/80 and heart rate 77. Patient denies chest pain, headache, abdominal pain, fevers or chills.
Review of Systems
General: Other (Negative unless mentioned above)
Objective Data
Data Reviewed
Vital Signs / I&O / Oxygen:
Vital Signs
Temp Pulse Resp BP Pulse Ox
97.8 F 80 21 139/60 89
09/14/23 07:00 09/14/23 11:07 09/14/23 11:07 09/14/23 06:00 09/14/23 11:07
Intake and Output
09/13/23 09/14/23 09/15/23
06:59 06:59 06:59
Intake Total 480 / 480 365 / 365
Output Total 450 / 450 950 / 950
Balance 30 / 30 -585 / -585
SaO2 89
Nasal Cannula flow liters per 10
minute
Physical Exam
General: Respiratory Distress (Negative) and Comfortable
HEENT: Normocephalic and Anicteric
Cardiovascular: S1-S2, Murmur (JOSE ARMANDO (+)) and Peripheral Edema (Negative)
Respiratory: Wheeze (Negative), Crackles (Bilaterally), Rhonchi (Negative) and Non-Labored Respirations
GI: Soft, Non Distended, Non Tender and Normal Bowel Sounds
Neurology: Awake and Alert
Skin: Warm, Dry and Jaundice (Negative)
Labs/Micro/Reports
Microbiology
09/13/23 17:15 Sputum Respiratory Culture - Preliminary
Usual Respiratory Gume
09/13/23 17:15 Sputum Gram Stain - Preliminary
[2023-09-14 14:22] LABS: Hematocrit 34.5 % (37.0-47.0); Hemoglobin 11.3 g/dL (12.0-16.0); Mean Corp Hgb Conc. 32.8 g/dL (33.0-37.0); Mean Corpuscular Volume 94.8 fL (81.0-99.0); Mean Platelet Volume 10.8 fL (7.4-10.4); Platelet Count 276 10^3/uL (130-400); Red Blood Cell Count 3.64 10^6/uL (4.20-5.40); White Blood Cell Count 14.9 10^3/uL (4.8-10.8)
[2023-09-14 14:33] LABS: ALT (SGPT) 25 U/L (0-35); AST (SGOT) 29 U/L (14-36); Albumin 3.3 g/dl (3.5-5.0); Alkaline Phosphatase 81 U/L (38-126); Blood Urea Nitrogen 76 mg/dl (7-17); Calcium 10.3 mg/dl (8.4-10.2); Carbon Dioxide 34 mmol/L (22-30); Chloride 94 mmol/L (98-107); Estimated Creatinine Clearance 31 ml/min; Glucose 272 mg/dl (70-99); Sodium 138 mmol/L (135-145); Total Bilirubin 0.6 mg/dl (0.2-1.3); Total Protein 6.3 g/dl (6.3-8.2); eGFR 48.33
--- NOTE | 2023-09-14 14:41 | W.PN.HOSP.TC ---
Today's Communication/Plan
-
abx
f/u cultures
wean o2
hold lasix again
Mucolytics, Chest PT
CXR in AM
Consider repeat imaging if no change in respiratory status
Consider initiating steroids if no improvement within next 24-48 hours
Assessment / Plan
Assessment / Plan
Physical Exam
General: Well Developed, Well Nourished, No Apparent Distress and Comfortable
HEENT: NormoCephalic, Anicteric and Moist mucous membranes
Respiratory: Distant breath sounds
Cardiac: S1/S2 and Regular Rhythm
Breast: Deferred by me
GI: Soft, Non Tender and Non Distended
Genito-urinary: Deferred by me
Musculoskeletal: No Clubbing, No Cyanosis and No Edema
Skin: Warm and Dry
Neuro: Awake and Alert
Hematologic/Lymphatic: No Lymphadenopathy
Psych: Calm
#Acute on chronic hypoxic respiratory failure
-2/2 to pneumonia; less likely acute hf at this time
-DCed on 2L prior
-wean o2 as tolerated; goal o2 >88%
-cont abx
-incentive shukri, acapella
-Start nebulized bronchodilators + budesonide
-Mucolytics with mucinex and vest therapy + flutter valve
-Chest PT
-F/u Pulm
#Sepsis
#Pneumonia, CAP v bronchitis
-cont abx - broaden if decompensates
-f/u sputum cultures
#Chronic heart failure reduced EF
-appears to be somewhat volume depleted. - improving
Hold furosemide for now and reassess tomorrow.
#CKD 3B -baseline creatinine suspected to be 1.4 during recent hospitalization, currently 1.3.
- Suspect she has a component of prerenal azotemia, volume depletion.
-Hypercalcemia noted and likely due to volume contraction.
-Metabolic alkalosis suspected to be due to contraction alkalosis.
-Hold furosemide, losartan, nifedipine.
-Discontinue ibuprofen.
#COPD without exacerbation
-no appreciable wheeze on exam, but low threshold to start systemic steroids.
-Completed a course of prednisone last week with improvement in her breathing according to family. Use nebs [id number] and as needed.
#Paroxysmal atrial fibrillation -On amiodarone. Not on anticoagulation for unclear reasons.
#Valvular heart disease -recent echocardiogram done on August 26 showed moderate to severe MR, moderate to severe TR, mild to moderate AAS, moderate AR. Valvular disease appears to have progressed compared to October 2021 echocardiogram.
#Essential hypertension -relative hypotension noted. Hold nifedipine, losartan.
#Hypothyroidism -continue levothyroxine.
#Hyperlipidemia -on atorvastatin.
#Normocytic anemia -suspect chronic. Hemoglobin 11.0, appears to be at baseline. Outpatient follow-up.
#Hyperglycemia Check hemoglobin A1c 7.5; Sliding scale; Start lantus 5u qhs
#Likely BETZY
-nocturnal hypoxemia noted
-Declined sleep study
#DVT ppx - HSQ
Full code
Total time spent on today's encounter was 53 minutes which included time spent in counseling the patient/family regarding diagnosis and treatment plan as listed above, goals of care, and symptom management. Case was discussed with nursing staff,
specialists, and care coordinators/case management. All labs and imaging personally reviewed by me. Remainder the time spent in detailed review of previous records, lab data, imaging, and other medical provider documentation.
Anticipated Discharge: > 48 hours
Subjective/Interval History
-
Date of Service: September 14, 2023
still requiring midflow
Objective Data
-
Labs:
Laboratory Results
09/14/23
14:13
WBC 14.9 H
Hgb 11.3 L
Hct 34.5 L
Plt Count 276
Sodium 138
Potassium 4.0
Chloride 94 L
Carbon Dioxide 34 H
BUN 76 H
Creatinine 1.1 H
Glucose 272 H
Calcium 10.3 H
Total Bilirubin 0.6
AST 29
ALT 25
Alkaline Phosphatase 81
Vital Signs:
Vital Signs
Temp Pulse Resp BP Pulse Ox
97.7 F 80 21 139/60 89
09/14/23 11:00 09/14/23 11:07 09/14/23 11:07 09/14/23 06:00 09/14/23 11:07
I&O
09/13/23 09/14/23 09/15/23
06:59 06:59 06:59
Intake Total 480 / 480 365 / 365
Output Total 450 / 450 950 / 950
Balance 30 / 30 -585 / -585
Review of Systems
-
History Source: Patient
All other systems: Reviewed and negative
Data Reviewed
-
Labs: Labs Reviewed by me
[2023-09-14] MEDS: VISBIOME 1 CAP PO (16:16)
[2023-09-14] MEDS: ROCEPHIN 1000 MG IV (16:16)
[2023-09-14] MEDS: STERILE WATER FOR INJECTION 10 ML IV (16:17)
[2023-09-14 16:27] LABS: Glucose - Point of Care 259 mg/dl (70-99)
[2023-09-14] MEDS: NOVOLOG FLEXPEN-LOW RESISTANCE 3 UNITS SC (16:57)
--- NOTE | 2023-09-14 18:00 | PTCARENOTE ---
Patient out of bed to chair all day assist of 1 to chair and commode. Patient had large formed BM today. Pure wick in use due to patient's respiratory status. Patient remains on 10 midflow with sp02 91-94%. Moist non-productive cough. Patient
using IS and acapella. Family in room at bedside.
[2023-09-14] MEDS: LANTUS 0.0500000000000000028 UNITS SC (21:06)
[2023-09-14 21:17] LABS: Glucose - Point of Care 240 mg/dl (70-99)
[2023-09-15] VITALS (11 sets, daily range): BP systolic 110–154; BP diastolic 39–98; BMI 21.1
[2023-09-15] MEDS: TYLENOL 1000 MG PO ×2 (03:50→21:43)
[2023-09-15] MEDS: SYNTHROID 25 MCG PO (04:25)
[2023-09-15 04:27] LABS: Hematocrit 34.1 % (37.0-47.0); Hemoglobin 10.6 g/dL (12.0-16.0); Mean Corp Hgb Conc. 31.1 g/dL (33.0-37.0); Mean Corpuscular Hgb 30.3 pg (27.0-31.0); Mean Corpuscular Volume 97.4 fL (81.0-99.0); Mean Platelet Volume 10.9 fL (7.4-10.4); Platelet Count 238 10^3/uL (130-400); Red Cell Dist. Width 12.9 % (11.5-14.5); White Blood Cell Count 13.3 10^3/uL (4.8-10.8)
[2023-09-15 04:56] LABS: ALT (SGPT) 26 U/L (0-35); AST (SGOT) 29 U/L (14-36); Albumin 2.8 g/dl (3.5-5.0); Alkaline Phosphatase 70 U/L (38-126); Blood Urea Nitrogen 75 mg/dl (7-17); Calcium 9.7 mg/dl (8.4-10.2); Carbon Dioxide 32 mmol/L (22-30); Chloride 98 mmol/L (98-107); Estimated Creatinine Clearance 34 ml/min; Glucose 200 mg/dl (70-99); Potassium 4.2 mmol/L (3.5-5.1); Sodium 138 mmol/L (135-145); Total Bilirubin 0.6 mg/dl (0.2-1.3); Total Protein 5.7 g/dl (6.3-8.2); eGFR 54.19
--- NOTE | 2023-09-15 05:20 | PTCARENOTE ---
Patient able to sleep overnight. Titrated 02 to 4L NC. Sp02 93-99%. Coughing less than previous night; non productive of sputum. Tele showing V-paced rhythm with pvcs and occasionally AV-paced. Pt requesting Tylenol for headache/back pain. No gi/gu
complaints. Pressure off-loading to sacral area using pillows, foam in place. Call lundberg within reach. Pt calls for assistance appropriately.
[2023-09-15] MEDS: DUONEB 3 ML INH ×4 (07:27→20:51)
[2023-09-15] MEDS: PULMICORT 0.5 MG INH ×2 (07:27→20:50)
[2023-09-15] MEDS: HEPARIN 5000 UNITS SC ×2 (07:58→21:43)
[2023-09-15] MEDS: NOVOLOG FLEXPEN-LOW RESISTANCE 1 UNITS SC (07:58)
[2023-09-15] MEDS: PACERONE 200 MG PO (07:59)
[2023-09-15] MEDS: ASPIR LOW (ENTERIC COATED) 81 MG PO (07:59)
[2023-09-15] MEDS: VISBIOME 1 CAP PO (07:59)
[2023-09-15] MEDS: VITAMIN D3 (cholecalciferol) 25 MCG PO (07:59)
[2023-09-15] MEDS: COREG 3.125 MG PO ×2 (07:59→21:43)
[2023-09-15] MEDS: MUCINEX 1200 MG PO ×2 (07:59→21:43)
[2023-09-15] MEDS: LIPITOR 20 MG PO (07:59)
[2023-09-15] MEDS: VIBRAMYCIN 100 MG PO ×2 (07:59→21:43)
[2023-09-15] MEDS: VITAMIN B-12 500 MCG PO (07:59)
[2023-09-15] MEDS: THERAGRAN 1 TABLET PO (07:59)
[2023-09-15 08:06] LABS: Glucose - Point of Care 190 mg/dl (70-99)
--- NOTE | 2023-09-15 09:30 | W.PN.HOSP.TC ---
Today's Communication/Plan
-
abx
wean o2
restart lasix
Mucolytics, Chest PT
nebs upon dc
glucose control
anticipate dc ready within 24-48 hours if o2 remains stable
slowly restart antihypertensives as tolerated and renal function stabilizes
Assessment / Plan
Assessment / Plan
Physical Exam
General: Well Developed, Well Nourished, No Apparent Distress and Comfortable
HEENT: NormoCephalic, Anicteric and Moist mucous membranes
Respiratory: Distant breath sounds
Cardiac: S1/S2 and Regular Rhythm
Breast: Deferred by me
GI: Soft, Non Tender and Non Distended
Genito-urinary: Deferred by me
Musculoskeletal: No Clubbing, No Cyanosis and No Edema
Skin: Warm and Dry
Neuro: Awake and Alert
Hematologic/Lymphatic: No Lymphadenopathy
Psych: Calm
#Acute on chronic hypoxic respiratory failure
-2/2 to pneumonia; less likely acute hf at this time
- 3L today
-DCed on 2L prior
-wean o2 as tolerated; goal o2 >88%
-cont abx - 10-14 day course
-incentive shukri, acapella
-Start nebulized bronchodilators + budesonide - nebs on dc
-Mucolytics with mucinex and vest therapy + flutter valve
-Chest PT
-F/u Pulm
-PT/OT - early ambulation
#Sepsis
#Pneumonia, CAP v bronchitis
-cont abx - broaden if decompensates - 10 -14 days total
-sputum cultures - usual gume
#Chronic heart failure reduced EF
-appears to be somewhat volume depleted. - improving
restart lasix
#CKD 3B -baseline creatinine suspected to be 1.4 during recent hospitalization, currently 1.3.
- Suspect she has a component of prerenal azotemia, volume depletion.
-Hypercalcemia noted and likely due to volume contraction.
-Metabolic alkalosis suspected to be due to contraction alkalosis.
-Hold losartan, nifedipine.; restart lasix - pulm edema on imaging
-Discontinue ibuprofen.
#COPD without exacerbation
-no appreciable wheeze on exam, but low threshold to start systemic steroids.
-Completed a course of prednisone last week with improvement in her breathing according to family. Use nebs [id number] and as needed.
#Paroxysmal atrial fibrillation -On amiodarone. Not on anticoagulation for unclear reasons.
#Valvular heart disease -recent echocardiogram done on August 26 showed moderate to severe MR, moderate to severe TR, mild to moderate AAS, moderate AR. Valvular disease appears to have progressed compared to October 2021 echocardiogram.
#Essential hypertension -relative hypotension noted. Hold nifedipine, losartan.
#Hypothyroidism -continue levothyroxine.
#Hyperlipidemia -on atorvastatin.
#Normocytic anemia -suspect chronic. Hemoglobin 11.0, appears to be at baseline. Outpatient follow-up.
#Hyperglycemia Check hemoglobin A1c 7.5; Sliding scale; Start lantus 5u qhs
#Likely BETZY
-nocturnal hypoxemia noted
-Declined sleep study
#DM
-Lantus titration
#DVT ppx - HSQ
Full code
Total time spent on today's encounter was 53 minutes which included time spent in counseling the patient/family regarding diagnosis and treatment plan as listed above, goals of care, and symptom management. Case was discussed with nursing staff,
specialists, and care coordinators/case management. All labs and imaging personally reviewed by me. Remainder the time spent in detailed review of previous records, lab data, imaging, and other medical provider documentation.
Anticipated Discharge: 24 - 48 hours
Subjective/Interval History
-
Date of Service: September 15, 2023
no acute events
Objective Data
-
Labs:
Laboratory Results
09/15/23
04:06
WBC 13.3 H
Hgb 10.6 L
Hct 34.1 L
Plt Count 238
Sodium 138
Potassium 4.2
Chloride 98
Carbon Dioxide 32 H
BUN 75 H
Creatinine 1.0
Glucose 200 H
Calcium 9.7
Total Bilirubin 0.6
AST 29
ALT 26
Alkaline Phosphatase 70
Vital Signs:
Vital Signs
Temp Pulse Resp BP Pulse Ox
97.7 F 79 20 110/39 90
09/15/23 07:26 09/15/23 07:33 09/15/23 07:33 09/15/23 06:00 09/15/23 08:14
I&O
09/14/23 09/15/23 09/16/23
06:59 06:59 06:59
Intake Total 365 / 365 1130 / 1130
Output Total 950 / 950 1120 / 1120
Balance -585 / -585
Review of Systems
-
History Source: Patient
All other systems: Reviewed and negative
Physical Exam
-
General: No Apparent Distress
HEENT: Moist Mucous Membranes
Respiratory: Clear to Auscultation (Anterior auscultation)
Cardiac: S1/S2 and Irregular Rhythm; Negative Tachycardic
GI: Soft, Nontender, Nondistended and Normal Bowel Sounds
Musculoskeletal: Other
Neuro: AO x 3
Psych: Calm
Data Reviewed
-
Diagnostic Radiology: Image personally visualized and interpreted and Report Reviewed by me
Labs: Labs Reviewed by me
[2023-09-15 11:35] LABS: Glucose - Point of Care 334 mg/dl (70-99)
[2023-09-15] MEDS: NOVOLOG FLEXPEN-MODERATE RESISTANCE 7 UNITS SC (11:49)
--- NOTE | 2023-09-15 16:50 | CM ---
Patient seen bedside with her son in the room.
Patient lives with daughter who is an RN.
patient has home oxygen with [employer].
CM referral for nebulizer. Son thinks his sister has a nebulizer, so will let CM know if they will need one.
explained we could order thru [employer] (will be delivered the next day) or MD could give them a script to [facility] at [facility].
Son will call case management office tomorrow.
Son will also check with sister to see if VN will be needed.
Plan: home with possible VN and nebulizer
[2023-09-15 17:04] LABS: Glucose - Point of Care 159 mg/dl (70-99)
[2023-09-15] MEDS: LASIX 40 MG PO (17:15)
[2023-09-15] MEDS: NOVOLOG FLEXPEN-MODERATE RESISTANCE 1 UNITS SC (17:15)
[2023-09-15] MEDS: ROCEPHIN 1000 MG IV (17:15)
[2023-09-15] MEDS: STERILE WATER FOR INJECTION 10 ML IV (17:15)
[2023-09-15] MEDS: NOVOLOG FLEXPEN 2 UNITS SC (17:16)
--- NOTE | 2023-09-15 17:37 | W.PN.PUL3 ---
Today's Communication / Plan
-
Reviewed airway clearance measures
Assess response to diuresis
Patient may require speech and swallow evaluation if clinically worsens.
Repeat chest x-ray 09/16
Follow development of left pleural effusion
Assessment
-
Patient is a 88-year-old female with previous history of chronic bronchitis, congestive heart failure with reduced EF, nocturnal hypoxemia (declined sleep study) presenting to with complaints of increasing shortness of breath. She was recently
discharged from 08/28/2023 with acute heart failure exacerbation. She had been discharged on 2 L nasal cannula but currently requiring 6 L in the emergency room. At home she had been desaturating into the 70s. She has a history of nocturnal
hypoxemia for which she has declined sleep study testing or pursuing a CPAP device. Chest x-ray demonstrating bibasilar hazy opacities, proBNP 6950, WBC 16.6, ABG 7.42/57/99.
Impression:
Acute hypoxic respiratory failure, on 12L/min midflow NC
Acute HF exacerbation with rEF, proBNP 6950 (prior 8120)
HCAP involving RML, medial RLL + LLL- believe this is the main component causing her SOB based on CT chest from 09/09/2023
Leukocytosis
Acute on chronic SOB
Chronic hypercarbic resp failure
Acute kidney injury
DM type II with A1C: 7.5 on 09/12/2023
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
Adm for COVID infection 05/2022
L hip intertrochanteric fracture, s/p L hip luiz construct for standard intertrochanteric fracture 06-03-[address] with moderate COPD (normal DLco/VA of 97%, with DLco: 64% via PFT from 09/2022)
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
HTN
CAD, s/p CABG
HFrEF (35-40%)
Follows cardiology, Dr. De Los Santos
AICD
Recurrent C Diff Colitis
CKD III
Hiatal hernia
Bilateral Wrist ORIF
Former Smoker (quit smoking 37y ago after 20 pack years history)
Pulmonary nodule -- 6.1 mm slightly irregular part solid nodule in the lateral right lower lobe on most recent CT Chest 04/2022, previously measuring 6.3 mm.
Bronchitis, mucopurulent recurrent/yearly
Nocturnal hypoxemia, oximetry test w/ O2 sharmin of 77%, she has declined sleep study
Plan:
Overall, patient appears to be improved from a mental status standpoint
Sitting in the chair, eating, conversing with family
She has history of nocturnal hypoxemia
Previously refused sleep study
Recent admission for AE CHF, was discharged on 2L NC on 08/28/2023
Crackles on exam noted, poor airway clearance measures noted
Chest x-ray today with slight worsening left pleuroparenchymal process
CT chest from 09/09/2023 shows multifocal pneumonia
Abx started -currently on ceftriaxone + Doxy s/p 1 dose of Zosyn on admission
Sputum culture obtained on 09/13/2023 � preliminarily shows usual respiratory gume
WBC noted, no fevers; trend WBC
Airway clearance measures --> continue vest
Acapella valve, antitussive therapy
Asp precs
High risk for BETZY, nocturnal hypoxemia noted
Declined sleep study -this can be discussed as an outpatient
ABG 7. showing chronic CO2 retention
Patient did not tolerate CPAP � I discontinue this on 09/12
Noted h/o heavy smoking in past
Chest CT with mild centrilobular emphysema and bronchial wall thickening, and patient does endorse frequent sputum production
Chronic bronchitis
Continue albuterol HFA prn
Given her PFT findings of normal DLco/VA of 97%, with DLco: 64% via PFT from 09/2022, this is concerning for a component of asthma, especially with her bronchial wall thickening. I started her on DuoNebs + budesonide, and she seems to enjoy this and
i deriving a benefit from nebulized bronchodilators
- Consult CM to set her up for nebulizer at home
Acute on chronic HF s/p lasix 40mg IVP x1 on 09/12/2023 --> currently stopped due to CARLOS
CHF mgmt
Lasix per primary service
Will likely need to repeat chest x-ray to rule out worsening effusion in the next few days. Follow clinically
DVT prophylaxis
PT/OT, deconditioning a factor as well (PT/OT as pt only pulling ~1,000 L from IS, which is very low)
Reviewed with patient and daughter and family at bedside
Diagnostic tests:
CXR 09/12/23- Parenchymal opacities within both lower lobes, left greater than right, similar to recent CT of the chest. Major differential considerations of atelectasis and/or pneumonia. Band of atelectasis within the right middle lobe, stable from
recent CT of the chest. Cardiomegaly with no findings to suggest pulmonary edema/active vascular congestion. Of note, dilation of the thoracic aorta is present on recent CT of the chest, with measurements given on that report, and this dilation is
more difficult to visualize radiographically.
CXR 06-05-22, c/w , 05-08-22, Oct. portable films, blurred R diaphragm, no gross infiltrate\\
CT CHEST 09/09/23- Minimal posterior left pleural effusion, similar to previous CT examination of May 09, 2022. Interval development of confluent parenchymal airspace opacities within the posterior aspect of both lower lobes, most likely
representing atelectasis. Pneumonia is difficult to exclude by imaging alone. Band of atelectasis within the right middle lobe, extending along the superior margin of the major fissure, new. Mild associated bronchiectasis. Thin linear densities
within the anterior and inferior aspect of the right upper lobe, slightly increased from previous examination, and likely representing atelectasis. Moderate hiatal hernia/partially intrathoracic stomach, extending into the medial and inferior aspect
of the right hemithorax. Moderate to severe calcification of the thoracic aorta. Tortuosity and dilation of the thoracic aorta, which is stable on direct comparison, with measurements given above. Stable compression deformity of the T8 vertebral
body. No evidence for new compression deformity.
Chest CT s/c 05-09-22 IMPRESSION: Ascending aortic aneurysmal dilatation measuring up to 5 cm. Aneurysmal dilatation of the aortic arch, 3.8 cm. Diffuse ectasia of the descending thoracic aorta. 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
the aortic hiatus, 4 cm. Progressive peribronchial thickening in the left lower lobe with associated bronchial luminal encroachment and mucous plugging. Minor atelectasis in the posterior lung bases, left greater than right. No evidence of pneumonia.
Global cardiomegaly. Hiatal hernia. Stable small nonspecific semisolid nodule in the lateral right lower lobe measuring 6.1 mm.
ECHO 08/27/23- Normal LV size with moderately reduced systolic function. LVEF is 30 to 35% by visual estimation with global diffuse hypokinesis. Mild concentric LVH. Normal right ventricular size and function. Moderate to severe mitral
regurgitation.
Mild to moderate aortic stenosis. Moderate aortic regurgitation. Moderate to severe tricuspid regurgitation. Estimated pulmonary artery pressure of 48 mmHg, assuming a right atrial pressure of 3 mmHg. Compared to prior from October 27, 2021,
mitral regurgitation is now moderate to severe from moderate, aortic regurgitation is moderate from mild , and tricuspid regurgitation is now moderate to severe from moderate.
TTE 10-27-21 CONCLUSIONS: Moderately reduced left ventricular systolic function. Estimated left ventricular ejection fraction is 35-40%. Moderate aortic stenosis.Mild aortic regurgitation. Thickened mitral valve with MAC and echodensities on
ventricular side of the valve. Cannot exclude vegetation. Moderate tricuspid regurgitation. Moderate mitral regurgitation. Pulmonary hypertension. No prior study available for comparison.
Subjective Data
-
Date of Service:
Date of Service: September 15, 2023
Chief Complaint: Pulmonary Follow Up
Subjective:
Patient sitting in chair. Family members at bedside. Patient with some mild left-sided chest discomfort, present for a few days, patient states it is from coughing spasms. Denies hemoptysis. Has mild productive cough. Denies swallowing
dysfunction or choking
Objective Data
Data Reviewed
Vital Signs / I&O / Oxygen:
Vital Signs
Temp Pulse Resp BP Pulse Ox
98.1 F 83 21 147/69 88
09/15/23 15:30 09/15/23 17:00 09/15/23 17:00 09/15/23 14:00 09/15/23 17:00
Intake and Output
09/14/23 09/15/23 09/16/23
06:59 06:59 06:59
Intake Total 365 / 365 1130 / 1130
Output Total 950 / 950 1120 / 1120
Balance -585 / -585
SaO2 88
Nasal Cannula flow liters per 3
minute
Physical Exam
General: Comfortable and Other (poo cough)
HEENT: Normocephalic and Anicteric
Cardiovascular: S1-S2, Regular Rhythm, Murmur (JOSE ARMANDO (+)) and Peripheral Edema (Negative)
Respiratory: Wheeze (Negative), Crackles (Bilaterally, left greater than right. Slightly decreased left base), Rhonchi (Few scattered), Non-Labored Respirations and Stridor (n)
GI: Soft, Non Distended, Non Tender and Normal Bowel Sounds
Neurology: Awake, Alert and No Motor Deficits (Generally weak)
Skin: Warm, Dry and Jaundice (Negative)
Labs/Micro/Reports
Lab Data
09/15/23 04:06
09/15/23 04:06
Microbiology
09/13/23 17:15 Sputum Respiratory Culture - Final
Usual Respiratory Gume
09/13/23 17:15 Sputum Gram Stain - Final
--- NOTE | 2023-09-15 18:26 | PTCARENOTE ---
No acute events overnight. OOB to chair throughout the day. Oxygen weaned as tolerated. Family at bedside. Assessment and care as documented.
[2023-09-15 21:41] LABS: Glucose - Point of Care 270 mg/dl (70-99)
[2023-09-15] MEDS: LANTUS 0.0700000000000000067 UNITS SC (21:44)
[2023-09-16] VITALS (12 sets, daily range): BP systolic 119–149; BP diastolic 53–89; BMI 21.1
[2023-09-16 05:26] LABS: Hematocrit 34.1 % (37.0-47.0); Hemoglobin 10.6 g/dL (12.0-16.0); Mean Corp Hgb Conc. 31.1 g/dL (33.0-37.0); Mean Corpuscular Hgb 30.2 pg (27.0-31.0); Mean Corpuscular Volume 97.2 fL (81.0-99.0); Mean Platelet Volume 10.7 fL (7.4-10.4); Platelet Count 252 10^3/uL (130-400); Red Blood Cell Count 3.51 10^6/uL (4.20-5.40); Red Cell Dist. Width 12.9 % (11.5-14.5); White Blood Cell Count 12.9 10^3/uL (4.8-10.8)
[2023-09-16] MEDS: SYNTHROID 25 MCG PO (05:48)
[2023-09-16 05:55] LABS: ALT (SGPT) 25 U/L (0-35); AST (SGOT) 27 U/L (14-36); Albumin 2.9 g/dl (3.5-5.0); Alkaline Phosphatase 69 U/L (38-126); Blood Urea Nitrogen 70 mg/dl (7-17); Calcium 9.6 mg/dl (8.4-10.2); Carbon Dioxide 33 mmol/L (22-30); Chloride 96 mmol/L (98-107); Estimated Creatinine Clearance 34 ml/min; Glucose 166 mg/dl (70-99); Potassium 4.1 mmol/L (3.5-5.1); Sodium 136 mmol/L (135-145); Total Bilirubin 0.6 mg/dl (0.2-1.3); Total Protein 5.8 g/dl (6.3-8.2); eGFR 54.19
--- NOTE | 2023-09-16 06:24 | PTCARENOTE ---
Patient up early this morning, in the chair before change of shift. NC titrated between 3-5L overnight. Moist non-productive cough continues. No gi/gu complaints. V-paced on tele with occasional PVCs. Requested Tylenol for bedtime. Daughter called
and updated on the phone. Pt motivated and using incentive spirometer and acapella independently. Call lundberg within reach. Pt calls appropriately.
[2023-09-16 07:37] LABS: Glucose - Point of Care 176 mg/dl (70-99)
[2023-09-16] MEDS: PULMICORT 0.5 MG INH ×2 (07:43→19:42)
[2023-09-16] MEDS: DUONEB 3 ML INH ×4 (07:43→19:41)
[2023-09-16] MEDS: NOVOLOG FLEXPEN 2 UNITS SC ×3 (08:38→17:15)
[2023-09-16] MEDS: NOVOLOG FLEXPEN-MODERATE RESISTANCE 1 UNITS SC (08:39)
[2023-09-16] MEDS: HEPARIN 5000 UNITS SC ×2 (08:39→20:49)
[2023-09-16] MEDS: MUCINEX 1200 MG PO ×2 (08:40→20:50)
[2023-09-16] MEDS: VIBRAMYCIN 100 MG PO ×2 (08:40→20:50)
[2023-09-16] MEDS: VITAMIN B-12 500 MCG PO (08:40)
[2023-09-16] MEDS: VITAMIN D3 (cholecalciferol) 25 MCG PO (08:40)
[2023-09-16] MEDS: VISBIOME 1 CAP PO (08:40)
[2023-09-16] MEDS: LIPITOR 20 MG PO (08:40)
[2023-09-16] MEDS: PACERONE 200 MG PO (08:41)
[2023-09-16] MEDS: LASIX 40 MG PO (08:41)
[2023-09-16] MEDS: ASPIR LOW (ENTERIC COATED) 81 MG PO (08:41)
[2023-09-16] MEDS: THERAGRAN 1 TABLET PO (08:41)
[2023-09-16] MEDS: COREG 3.125 MG PO ×2 (08:41→20:50)
--- NOTE | 2023-09-16 09:44 | W.PN.HOSP.TC ---
Today's Communication/Plan
-
abx
CXR tomorrow
Cont lasix
Mucolytics, Chest PT
nebs upon dc
VSE possible tomorrow
glucose control
anticipate dc ready within 24-48 hours if o2 remains stable
Assessment / Plan
Assessment / Plan
Physical Exam
General: Well Developed, Well Nourished, No Apparent Distress and Comfortable
HEENT: NormoCephalic, Anicteric and Moist mucous membranes
Respiratory: Distant breath sounds
Cardiac: S1/S2 and Regular Rhythm
Breast: Deferred by me
GI: Soft, Non Tender and Non Distended
Genito-urinary: Deferred by me
Musculoskeletal: No Clubbing, No Cyanosis and No Edema
Skin: Warm and Dry
Neuro: Awake and Alert
Hematologic/Lymphatic: No Lymphadenopathy
Psych: Calm
#Acute on chronic hypoxic respiratory failure
-2/2 to pneumonia; less likely acute hf at this time
- 3L today
-DCed on 2L prior
-wean o2 as tolerated; goal o2 >88%
-cont abx - 10-14 day course
-incentive shukri, acapella
-Start nebulized bronchodilators + budesonide - nebs on dc
-Mucolytics with mucinex and vest therapy + flutter valve
-Chest PT
-F/u Pulm
-PT/OT - early ambulation
� X-ray on 09/16
#Sepsis
#Pneumonia, CAP v bronchitis
-cont abx - broaden if decompensates - 10 -14 days total
-sputum cultures - usual gume
#Chronic heart failure reduced EF
-Pleural effusions on cxr
-restart Home lasix
-CXR on 09/16
#CKD 3B -baseline creatinine suspected to be 1.4 during recent hospitalization, currently 1.3.
- Suspect she has a component of prerenal azotemia, volume depletion.
-Hypercalcemia noted and likely due to volume contraction.
-Metabolic alkalosis suspected to be due to contraction alkalosis.
-Hold losartan, nifedipine.; restart lasix - pulm edema on imaging
-Discontinue ibuprofen.
#COPD without exacerbation
-no appreciable wheeze on exam, but low threshold to start systemic steroids.
-Completed a course of prednisone last week with improvement in her breathing according to family. Use nebs [id number] and as needed.
#Paroxysmal atrial fibrillation -On amiodarone. Not on anticoagulation for unclear reasons.
#Valvular heart disease -recent echocardiogram done on August 26 showed moderate to severe MR, moderate to severe TR, mild to moderate AAS, moderate AR. Valvular disease appears to have progressed compared to October 2021 echocardiogram.
#Essential hypertension -relative hypotension noted. Hold nifedipine, losartan.
#Hypothyroidism -continue levothyroxine.
#Hyperlipidemia -on atorvastatin.
#Normocytic anemia -suspect chronic. Hemoglobin 11.0, appears to be at baseline. Outpatient follow-up.
#Hyperglycemia Check hemoglobin A1c 7.5; Sliding scale; Start lantus 5u qhs
#Likely BETZY
-nocturnal hypoxemia noted
-Declined sleep study
#DM
-Lantus titration
#DVT ppx - HSQ
Full code
Anticipated Discharge: 24 - 48 hours
Subjective/Interval History
-
Date of Service: September 16, 2023
No acute events overnight
Objective Data
-
Labs:
Laboratory Results
09/16/23
05:16
WBC 12.9 H
Hgb 10.6 L
Hct 34.1 L
Plt Count 252
Sodium 136
Potassium 4.1
Chloride 96 L
Carbon Dioxide 33 H
BUN 70 H
Creatinine 1.0
Glucose 166 H
Calcium 9.6
Total Bilirubin 0.6
AST 27
ALT 25
Alkaline Phosphatase 69
Vital Signs:
Vital Signs
Temp Pulse Resp BP Pulse Ox
98.3 F 77 18 135/62 93
09/16/23 07:19 09/16/23 07:48 09/16/23 07:48 09/16/23 06:00 09/16/23 08:56
I&O
09/15/23 09/16/23 09/17/23
06:59 06:59 06:59
Intake Total 1130 / 1130 240 / 240
Output Total 1120 / 1120 475 / 475 125 / 125
Balance -235 / -235 -125 / -125
Review of Systems
-
History Source: Patient
All other systems: Not reviewed unless documented
Data Reviewed
-
Diagnostic Radiology: Image personally visualized and interpreted and Report Reviewed by me
Labs: Labs Reviewed by me
[2023-09-16 12:44] LABS: Glucose - Point of Care 263 mg/dl (70-99)
[2023-09-16] MEDS: NOVOLOG FLEXPEN-MODERATE RESISTANCE 5 UNITS SC (12:58)
--- NOTE | 2023-09-16 13:37 | W.PN.PUL3 ---
Today's Communication / Plan
-
Continue airway clearance measures
Aspiration precautions
Chest x-ray 09/16
May require VSE
Assessment
-
Patient is a 88-year-old female with previous history of chronic bronchitis, congestive heart failure with reduced EF, nocturnal hypoxemia (declined sleep study) presenting to with complaints of increasing shortness of breath. She was recently
discharged from 08/28/2023 with acute heart failure exacerbation. She had been discharged on 2 L nasal cannula but currently requiring 6 L in the emergency room. At home she had been desaturating into the 70s. She has a history of nocturnal
hypoxemia for which she has declined sleep study testing or pursuing a CPAP device. Chest x-ray demonstrating bibasilar hazy opacities, proBNP 6950, WBC 16.6, ABG 7.42/57/99.
Impression:
Acute hypoxic respiratory failure, on 12L/min midflow NC
Acute HF exacerbation with rEF, proBNP 6950 (prior 8120)
HCAP involving RML, medial RLL + LLL- believe this is the main component causing her SOB based on CT chest from 09/09/2023
Leukocytosis
Acute on chronic SOB
Chronic hypercarbic resp failure
Acute kidney injury
DM type II with A1C: 7.5 on 09/12/2023
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
Adm for COVID infection 05/2022
L hip intertrochanteric fracture, s/p L hip luiz construct for standard intertrochanteric fracture 06-03-[address] with moderate COPD (normal DLco/VA of 97%, with DLco: 64% via PFT from 09/2022)
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
HTN
CAD, s/p CABG
HFrEF (35-40%)
Follows cardiology, Dr. De Los Santos
AICD
Recurrent C Diff Colitis
CKD III
Hiatal hernia
Bilateral Wrist ORIF
Former Smoker (quit smoking 37y ago after 20 pack years history)
Pulmonary nodule -- 6.1 mm slightly irregular part solid nodule in the lateral right lower lobe on most recent CT Chest 04/2022, previously measuring 6.3 mm.
Bronchitis, mucopurulent recurrent/yearly
Nocturnal hypoxemia, oximetry test w/ O2 sharmin of 77%, she has declined sleep study
Plan/recommendations
At this time, patient appears to be subjectively and electively improved. She feels her breathing and cough have improved
She is more compliant with her Acapella device and is using it more appropriately
Chest exam with coarse crackles/rhonchi right base, decreased breath sounds left base
Reviewed CT chest. Large hiatal hernia and basilar bronchiectasis/atelectasis
She has history of nocturnal hypoxemia
Previously refused sleep study
Recent admission for AE CHF, was discharged on 2L NC on 08/28/2023
Moving forward
Continue with airway clearance measures
Chest x-ray 09/14 with increased left pleuroparenchymal process. Decreased breath sounds left base
CT chest from 09/09/2023 shows multifocal pneumonia
Abx started -currently on ceftriaxone + Doxy s/p 1 dose of Zosyn on admission
Sputum culture obtained on 09/13/2023 � preliminarily shows usual respiratory gume
WBC noted, no fevers; trend WBC
Airway clearance measures --> continue vest
Acapella valve, antitussive therapy
Asp precs
Repeat chest x-ray 09/16
High risk for BETZY, nocturnal hypoxemia noted
Declined sleep study -this can be discussed as an outpatient
ABG 7.42 showing chronic CO2 retention
Patient did not tolerate CPAP � I discontinue this on 09/12
Noted h/o heavy smoking in past
Chest CT with mild centrilobular emphysema and bronchial wall thickening, and patient does endorse frequent sputum production
Chronic bronchitis
She also has a large hiatal hernia. Discussed possibility of dysphagia, silent aspiration, aspiration syndrome
Based on clinical course, she may require VSE
Continue albuterol HFA prn
Given her PFT findings of normal DLco/VA of 97%, with DLco: 64% via PFT from 09/2022, this is concerning for a component of asthma, especially with her bronchial wall thickening. I started her on DuoNebs + budesonide, and she seems to enjoy this and
i deriving a benefit from nebulized bronchodilators
Plan to discharge with home nebulizer and budesonide/DuoNebs
Acute on chronic HF s/p lasix 40mg IVP x1 on 09/12/2023 --> currently stopped due to CARLOS
CHF mgmt
Lasix per primary service
Will likely need to repeat chest x-ray to rule out worsening effusion in the next few days.
Will repeat tomorrow
DVT prophylaxis
PT/OT, deconditioning a factor as well (PT/OT as pt only pulling ~1,000 L from IS, which is very low)
Disposition efforts
Diagnostic tests:
CXR 09/12/23- Parenchymal opacities within both lower lobes, left greater than right, similar to recent CT of the chest. Major differential considerations of atelectasis and/or pneumonia. Band of atelectasis within the right middle lobe, stable from
recent CT of the chest. Cardiomegaly with no findings to suggest pulmonary edema/active vascular congestion. Of note, dilation of the thoracic aorta is present on recent CT of the chest, with measurements given on that report, and this dilation is
more difficult to visualize radiographically.
CXR 06-05-22, c/w , 05-08-22, Oct. portable films, blurred R diaphragm, no gross infiltrate\\
CT CHEST 09/09/23- Minimal posterior left pleural effusion, similar to previous CT examination of May 09, 2022. Interval development of confluent parenchymal airspace opacities within the posterior aspect of both lower lobes, most likely
representing atelectasis. Pneumonia is difficult to exclude by imaging alone. Band of atelectasis within the right middle lobe, extending along the superior margin of the major fissure, new. Mild associated bronchiectasis. Thin linear densities
within the anterior and inferior aspect of the right upper lobe, slightly increased from previous examination, and likely representing atelectasis. Moderate hiatal hernia/partially intrathoracic stomach, extending into the medial and inferior aspect
of the right hemithorax. Moderate to severe calcification of the thoracic aorta. Tortuosity and dilation of the thoracic aorta, which is stable on direct comparison, with measurements given above. Stable compression deformity of the T8 vertebral
body. No evidence for new compression deformity.
Chest CT s/c 05-09-22 IMPRESSION: Ascending aortic aneurysmal dilatation measuring up to 5 cm. Aneurysmal dilatation of the aortic arch, 3.8 cm. Diffuse ectasia of the descending thoracic aorta. 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
the aortic hiatus, 4 cm. Progressive peribronchial thickening in the left lower lobe with associated bronchial luminal encroachment and mucous plugging. Minor atelectasis in the posterior lung bases, left greater than right. No evidence of pneumonia.
Global cardiomegaly. Hiatal hernia. Stable small nonspecific semisolid nodule in the lateral right lower lobe measuring 6.1 mm.
ECHO 08/27/23- Normal LV size with moderately reduced systolic function. LVEF is 30 to 35% by visual estimation with global diffuse hypokinesis. Mild concentric LVH. Normal right ventricular size and function. Moderate to severe mitral
regurgitation.
Mild to moderate aortic stenosis. Moderate aortic regurgitation. Moderate to severe tricuspid regurgitation. Estimated pulmonary artery pressure of 48 mmHg, assuming a right atrial pressure of 3 mmHg. Compared to prior from October 27, 2021,
mitral regurgitation is now moderate to severe from moderate, aortic regurgitation is moderate from mild , and tricuspid regurgitation is now moderate to severe from moderate.
TTE 10-27-21 CONCLUSIONS: Moderately reduced left ventricular systolic function. Estimated left ventricular ejection fraction is 35-40%. Moderate aortic stenosis.Mild aortic regurgitation. Thickened mitral valve with MAC and echodensities on
ventricular side of the valve. Cannot exclude vegetation. Moderate tricuspid regurgitation. Moderate mitral regurgitation. Pulmonary hypertension. No prior study available for comparison.Patient is a 88-year-old female with previous history of
chronic bronchitis, congestive heart failure with reduced EF, nocturnal hypoxemia (declined sleep study) presenting to with complaints of increasing shortness of breath. She was recently discharged from 08/28/2023 with acute heart failure
exacerbation. She had been discharged on 2 L nasal cannula but currently requiring 6 L in the emergency room. At home she had been desaturating into the 70s. She has a history of nocturnal hypoxemia for which she has declined sleep study testing
or pursuing a CPAP device. Chest x-ray demonstrating bibasilar hazy opacities, proBNP 6950, WBC 16.6, ABG 7.42/57/99.
Subjective Data
-
Date of Service:
Date of Service: September 16, 2023
Chief Complaint: Pulmonary Follow Up
Subjective:
Patient examined earlier this morning. She is sitting in the chair, feeling well. She is being more vigilant with her Acapella, feels she is able to mobilize secretions better. Denies hemoptysis, chest pain, nausea, abdominal pain. 95 to 97% on
3 to 4 L
Objective Data
Data Reviewed
Vital Signs / I&O / Oxygen:
Vital Signs
Temp Pulse Resp BP Pulse Ox
98.3 F 79 18 140/62 94
09/16/23 07:19 09/16/23 11:34 09/16/23 11:34 09/16/23 10:00 09/16/23 11:34
Intake and Output
09/15/23 09/16/23 09/17/23
06:59 06:59 06:59
Intake Total 1130 / 1130 240 / 240
Output Total 1120 / 1120 475 / 475 335 / 335
Balance -235 / -235 -335 / -335
SaO2 94
Nasal Cannula flow liters per 3
minute
Physical Exam
General: Comfortable and Other (poor cough)
HEENT: Normocephalic and Anicteric
Cardiovascular: S1-S2, Regular Rhythm, Murmur (2/6 systolic murmur) and Peripheral Edema (Negative)
Respiratory: Wheeze (Negative), Crackles (Coarse crackles right base. Slightly decreased left base, with mild crackles), Rhonchi (Few scattered), Non-Labored Respirations, Stridor (n) and Other (Slight decreased left base)
GI: Soft, Non Distended, Non Tender and Normal Bowel Sounds
Neurology: Awake, Alert and No Motor Deficits (Generally weak)
Skin: Warm, Dry and Jaundice (Negative)
Labs/Micro/Reports
Lab Data
09/16/23 05:16
09/16/23 05:16
Microbiology
09/13/23 17:15 Sputum Respiratory Culture - Final
Usual Respiratory Gume
09/13/23 17:15 Sputum Gram Stain - Final
--- NOTE | 2023-09-16 13:38 | PTCARENOTE ---
Pt presents as assessed. OOB to chair throughout the day. Satin mid 90's on 3L NC. Pt doing IS and Acapella. Reports feeling improved. Family at bedside. Care as documented.
[2023-09-16] MEDS: TYLENOL 1000 MG PO ×2 (14:06→20:49)
[2023-09-16] MEDS: NOVOLOG FLEXPEN-MODERATE RESISTANCE SC (17:15)
[2023-09-16] MEDS: ROCEPHIN 1000 MG IV (17:16)
[2023-09-16] MEDS: STERILE WATER FOR INJECTION 10 ML IV (17:16)
[2023-09-16 17:22] LABS: Glucose - Point of Care 141 mg/dl (70-99)
[2023-09-16] MEDS: LANTUS 0.0700000000000000067 UNITS SC (21:34)
[2023-09-16 21:41] LABS: Glucose - Point of Care 181 mg/dl (70-99)
[2023-09-17] VITALS (16 sets, daily range): BP systolic 76–147; BP diastolic 43–75; PULSE 75; O2SAT 97; BMI 20.4
--- NOTE | 2023-09-17 03:31 | PTCARENOTE ---
Patient able to sleep. 3L NC overnight. purewick used overnight. Tele showing V-paced rhythm. Tylenol provided for bedtime. swallowing pills w/o issues. pt appreciative of cares. call lundberg within reach. calls appropriately. pt motivated to go home.
[2023-09-17] MEDS: SYNTHROID 25 MCG PO (05:39)
[2023-09-17] MEDS: TYLENOL 1000 MG PO ×3 (05:39→22:53)
[2023-09-17 06:22] LABS: Hematocrit 35.4 % (37.0-47.0); Mean Corp Hgb Conc. 31.1 g/dL (33.0-37.0); Mean Corpuscular Hgb 30.4 pg (27.0-31.0); Mean Corpuscular Volume 97.8 fL (81.0-99.0); Platelet Count 248 10^3/uL (130-400); Red Blood Cell Count 3.62 10^6/uL (4.20-5.40); Red Cell Dist. Width 12.8 % (11.5-14.5); White Blood Cell Count 12.2 10^3/uL (4.8-10.8)
[2023-09-17 06:52] LABS: ALT (SGPT) 26 U/L (0-35); AST (SGOT) 29 U/L (14-36); Albumin 3.1 g/dl (3.5-5.0); Alkaline Phosphatase 76 U/L (38-126); Blood Urea Nitrogen 66 mg/dl (7-17); Calcium 9.9 mg/dl (8.4-10.2); Carbon Dioxide 31 mmol/L (22-30); Chloride 97 mmol/L (98-107); Estimated Creatinine Clearance 33 ml/min; Glucose 128 mg/dl (70-99); Potassium 4.2 mmol/L (3.5-5.1); Sodium 138 mmol/L (135-145); Total Bilirubin 0.5 mg/dl (0.2-1.3); Total Protein 6.1 g/dl (6.3-8.2); eGFR 54.19
[2023-09-17 07:36] LABS: Glucose - Point of Care 142 mg/dl (70-99)
[2023-09-17] MEDS: DUONEB 3 ML INH ×4 (07:37→20:01)
[2023-09-17] MEDS: PULMICORT 0.5 MG INH ×2 (07:37→20:00)
[2023-09-17] MEDS: NOVOLOG FLEXPEN 2 UNITS SC ×3 (08:22→16:45)
[2023-09-17] MEDS: NOVOLOG FLEXPEN-MODERATE RESISTANCE SC ×2 (08:22→16:43)
[2023-09-17] MEDS: MUCINEX 1200 MG PO ×2 (08:27→20:33)
[2023-09-17] MEDS: VISBIOME 1 CAP PO (08:28)
[2023-09-17] MEDS: THERAGRAN 1 TABLET PO (08:28)
[2023-09-17] MEDS: ASPIR LOW (ENTERIC COATED) 81 MG PO (08:28)
[2023-09-17] MEDS: VIBRAMYCIN 100 MG PO ×2 (08:28→20:35)
[2023-09-17] MEDS: COREG 3.125 MG PO ×2 (08:29→20:33)
[2023-09-17] MEDS: LIPITOR 20 MG PO (08:29)
[2023-09-17] MEDS: VITAMIN D3 (cholecalciferol) 25 MCG PO (08:29)
[2023-09-17] MEDS: PACERONE 200 MG PO (08:29)
[2023-09-17] MEDS: LASIX 40 MG PO (08:30)
[2023-09-17] MEDS: VITAMIN B-12 500 MCG PO (08:30)
[2023-09-17] MEDS: HEPARIN 5000 UNITS SC ×2 (08:31→20:32)
--- NOTE | 2023-09-17 08:33 | W.PN.HOSP.TC ---
Today's Communication/Plan
-
thoracentesis
resume losartan
Assessment / Plan
Assessment / Plan
Physical Exam
General: Well Developed, Well Nourished, No Apparent Distress and Comfortable
HEENT: NormoCephalic, Anicteric and Moist mucous membranes
Respiratory: Distant breath sounds
Cardiac: S1/S2 and Regular Rhythm
Breast: Deferred by me
GI: Soft, Non Tender and Non Distended
Genito-urinary: Deferred by me
Musculoskeletal: No Clubbing, No Cyanosis and No Edema
Skin: Warm and Dry
Neuro: Awake and Alert
Hematologic/Lymphatic: No Lymphadenopathy
Psych: Calm
#Acute on chronic hypoxic respiratory failure
-2/2 to pneumonia; less likely acute hf at this time
- 3L today
-DCed on 2L prior
-wean o2 as tolerated; goal o2 >88%
-cont abx - 10-14 day course
-incentive shukri, acapella
-Start nebulized bronchodilators + budesonide - nebs on dc
-Mucolytics with mucinex and vest therapy + flutter valve
-Chest PT
-F/u Pulm
-PT/OT - early ambulation
-VSE - no aspiration
#Sepsis
#Pneumonia, CAP v bronchitis
-cont abx - broaden if decompensates - 14 days total
-sputum cultures - usual gume
#Chronic heart failure reduced EF
-Pleural effusions on cxr
-restart Home lasix
-Thoracentesis today
#CKD 3B -baseline creatinine suspected to be 1.4 during recent hospitalization, currently 1.3.
- Suspect she has a component of prerenal azotemia, volume depletion.
-Hypercalcemia noted and likely due to volume contraction.
-Metabolic alkalosis suspected to be due to contraction alkalosis.
-Hold nifedipine.;
-Resume losartan
-restart lasix
-Discontinue ibuprofen.
#COPD without exacerbation
-no appreciable wheeze on exam, but low threshold to start systemic steroids.
-Completed a course of prednisone last week with improvement in her breathing according to family. Use nebs [id number] and as needed.
#Paroxysmal atrial fibrillation -On amiodarone. Not on anticoagulation for unclear reasons.
#Valvular heart disease -recent echocardiogram done on August 26 showed moderate to severe MR, moderate to severe TR, mild to moderate AAS, moderate AR. Valvular disease appears to have progressed compared to October 2021 echocardiogram.
#Essential hypertension -relative hypotension noted. Hold nifedipine, losartan.
#Hypothyroidism -continue levothyroxine.
#Hyperlipidemia -on atorvastatin.
#Normocytic anemia -suspect chronic. Hemoglobin 11.0, appears to be at baseline. Outpatient follow-up.
#Hyperglycemia Check hemoglobin A1c 7.5; Sliding scale; Start lantus 5u qhs
#Likely BETZY
-nocturnal hypoxemia noted
-Declined sleep study
#DM
-Lantus titration
#DVT ppx - HSQ
Full code
Anticipated Discharge: 24 - 48 hours
Subjective/Interval History
-
Date of Service: September 17, 2023
no acute events
Objective Data
-
Labs:
Laboratory Results
09/17/23
05:47
WBC 12.2 H
Hgb 11.0 L
Hct 35.4 L
Plt Count 248
Sodium 138
Potassium 4.2
Chloride 97 L
Carbon Dioxide 31 H
BUN 66 H
Creatinine 1.0
Glucose 128 H
Calcium 9.9
Total Bilirubin 0.5
AST 29
ALT 26
Alkaline Phosphatase 76
Vital Signs:
Vital Signs
Temp Pulse Resp BP Pulse Ox
98 F 76 18 136/49 95
09/17/23 07:22 09/17/23 08:30 09/17/23 07:40 09/17/23 08:30 09/17/23 07:40
I&O
09/16/23 09/17/23 09/18/23
06:59 06:59 06:59
Intake Total 240 / 240
Output Total 475 / 475 535 / 535
Balance -235 / -235 -535 / -535
Review of Systems
-
History Source: Patient
All other systems: Not reviewed unless documented
Physical Exam
-
General: No Apparent Distress
HEENT: Moist Mucous Membranes
Respiratory: Decreased Breath Sounds (decreased left base )
Cardiac: S1/S2 and Irregular Rhythm; Negative Tachycardic
GI: Soft, Nontender, Nondistended and Normal Bowel Sounds
Musculoskeletal: Other
Neuro: AO x 3
Psych: Calm
Data Reviewed
-
Diagnostic Radiology: Image personally visualized and interpreted and Report Reviewed by me
Labs: Labs Reviewed by me
--- NOTE | 2023-09-17 10:20 | PTOTSP ---
Speech Language Pathology
VIDEOFLUOROSCOPIC SWALLOWING EXAMINATION (VSE) completed. Overall, pt with mild oropharyngeal dysphagia. Penetration noted at times with no aspiration. Unclear if this is baseline swallow function or if negatively affected by current respiratory
status and 02 needs. Of note, esophageal sweep with distal esophageal residue. Pt is at risk for bottom-up aspiration as well.
Recommend:
(1) Regular solids/thin liquids
(2) Aspiration precautions: sit upright during meals and for at least 30 minutest post, single sips via cup (no straws), slow rate, intermittent throat clear/reswallow
(3) Meds 1 at a time whole with liquid if able to take with single sip of liquid. If unable to take with single sip of liquid, provide whole in puree
(4) Consider GI consult as inpatient or outpatient
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
--- NOTE | 2023-09-17 10:43 | W.PN.PUL3 ---
Today's Communication / Plan
-
Check CT chest to assess retrocardiac opacification, and if at least moderate pleural effusion then consult IR for thoracentesis; based on chest ultrasound today, suspect mostly atelectasis with small effusion component
Continue airway clearance measures
Aspiration precautions
Diet as per ONLINE MEDIA BUYER
Based on VSE today, consider GI consult, josefina with large hiatal hernia
Assessment
-
Patient is a 88-year-old female with previous history of chronic bronchitis, congestive heart failure with reduced EF, nocturnal hypoxemia (declined sleep study) presenting to with complaints of increasing shortness of breath. She was recently
discharged from 08/28/2023 with acute heart failure exacerbation. She had been discharged on 2 L nasal cannula but currently requiring 6 L in the emergency room. At home she had been desaturating into the 70s. She has a history of nocturnal
hypoxemia for which she has declined sleep study testing or pursuing a CPAP device. Chest x-ray demonstrating bibasilar hazy opacities, proBNP 6950, WBC 16.6, ABG 7.42/57/99.
Impression:
Acute hypoxic respiratory failure, on 12L/min midflow NC
Acute HF exacerbation with rEF, proBNP 6950 (prior 8120)
HCAP involving RML, medial RLL + LLL- believe this is the main component causing her SOB based on CT chest from 09/09/2023
Leukocytosis
Acute on chronic SOB
Chronic hypercarbic resp failure
Acute kidney injury
DM type II with A1C: 7.5 on 09/12/2023
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
Adm for COVID infection 05/2022
L hip intertrochanteric fracture, s/p L hip luiz construct for standard intertrochanteric fracture 06-03-[address] with moderate COPD (normal DLco/VA of 97%, with DLco: 64% via PFT from 09/2022)
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
HTN
CAD, s/p CABG
HFrEF (35-40%)
Follows cardiology, Dr. De Los Santos
AICD
Recurrent C Diff Colitis
CKD III
Hiatal hernia
Bilateral Wrist ORIF
Former Smoker (quit smoking 37y ago after 20 pack years history)
Pulmonary nodule -- 6.1 mm slightly irregular part solid nodule in the lateral right lower lobe on most recent CT Chest 04/2022, previously measuring 6.3 mm.
Bronchitis, mucopurulent recurrent/yearly
Nocturnal hypoxemia, oximetry test w/ O2 sharmin of 77%, she has declined sleep study
Plan/recommendations
At this time, patient appears to be subjectively and electively improved. She feels her breathing and cough have improved
She is more compliant with her Acapella device and is using it more appropriately
Chest exam with coarse crackles/rhonchi right base, decreased breath sounds left base
Reviewed CT chest. Large hiatal hernia and basilar bronchiectasis/atelectasis, with worsening LLL opacification suspicious for either pleural effusion versus atelectasis
She has history of nocturnal hypoxemia
Previously refused sleep study
Recent admission for AE CHF, was discharged on 2L NC on 08/28/2023
Moving forward
Continue with airway clearance measures
Chest x-ray 09/14 with increased left pleuroparenchymal process. Decreased breath sounds left base
CT chest from 09/09/2023 shows multifocal pneumonia
Abx started -currently on ceftriaxone + Doxy s/p 1 dose of Zosyn on admission
Sputum culture obtained on 09/13/2023 � preliminarily shows usual respiratory gume
WBC noted, no fevers; trend WBC
Airway clearance measures --> continue vest
Acapella valve, antitussive therapy
Asp precs
Re-check CT Chest to assess if L-retrocardiac opacity is more atelectasis vs effusion --> if at least moderate effusion then consult IR for thora
High risk for BETZY, nocturnal hypoxemia noted
Declined sleep study -this can be discussed as an outpatient
ABG 7.42/57/99 showing chronic CO2 retention
Patient did not tolerate CPAP � discontinued on 09/12
Noted h/o heavy smoking in past
Chest CT with mild centrilobular emphysema and bronchial wall thickening, and patient does endorse frequent sputum production
Chronic bronchitis
She also has a large hiatal hernia. Discussed possibility of dysphagia, silent aspiration, aspiration syndrome
ONLINE MEDIA BUYER saw pt today and performed VSE, showing mild oropharyngeal dysphagia with no aspiration. Esophageal sweep with distal esophageal residue. Consider GI consultation especially in the setting of her large hiatal hernia
Continue albuterol HFA prn
Given her PFT findings of normal DLco/VA of 97%, with DLco: 64% via PFT from 09/2022, this is concerning for a component of asthma, especially with her bronchial wall thickening. Continue DuoNebs + budesonide, and she seems to enjoy this and is
deriving a benefit from nebulized bronchodilators
Plan to discharge with home nebulizer and budesonide/DuoNebs
Acute on chronic HF s/p lasix 40mg IVP x1 on 09/12/2023 --> currently stopped due to CARLOS
CHF mgmt
Lasix per primary service
Check CT chest as above to re-assess lung parenchyma and assess retrocardiac opacification
DVT prophylaxis
PT/OT, deconditioning a factor as well (PT/OT as pt only pulling ~1,000 L from IS, which is very low)
Disposition efforts
Pulmonary service will continue to follow along.
Total time spent today was 35 minutes for this encounter. Time includes reviewing laboratory test/imaging results, reviewing pertinent medical records, obtaining and reviewing medical history, performing an appropriate exam, ordering medications,
tests and procedures. Time also includes documentation of this encounter, coordinating patient care and communicating with other healthcare professionals. Total time does not include separately billed tests performed on this date of service.
Diagnostic tests:
CXR 09/12/23- Parenchymal opacities within both lower lobes, left greater than right, similar to recent CT of the chest. Major differential considerations of atelectasis and/or pneumonia. Band of atelectasis within the right middle lobe, stable from
recent CT of the chest. Cardiomegaly with no findings to suggest pulmonary edema/active vascular congestion. Of note, dilation of the thoracic aorta is present on recent CT of the chest, with measurements given on that report, and this dilation is
more difficult to visualize radiographically.
CXR 06-05-22, c/w , 05-08-22, Oct. portable films, blurred R diaphragm, no gross infiltrate\\
CT CHEST 09/09/23- Minimal posterior left pleural effusion, similar to previous CT examination of May 09, 2022. Interval development of confluent parenchymal airspace opacities within the posterior aspect of both lower lobes, most likely
representing atelectasis. Pneumonia is difficult to exclude by imaging alone. Band of atelectasis within the right middle lobe, extending along the superior margin of the major fissure, new. Mild associated bronchiectasis. Thin linear densities
within the anterior and inferior aspect of the right upper lobe, slightly increased from previous examination, and likely representing atelectasis. Moderate hiatal hernia/partially intrathoracic stomach, extending into the medial and inferior aspect
of the right hemithorax. Moderate to severe calcification of the thoracic aorta. Tortuosity and dilation of the thoracic aorta, which is stable on direct comparison, with measurements given above. Stable compression deformity of the T8 vertebral
body. No evidence for new compression deformity.
Chest CT s/c 05-09-22 IMPRESSION: Ascending aortic aneurysmal dilatation measuring up to 5 cm. Aneurysmal dilatation of the aortic arch, 3.8 cm. Diffuse ectasia of the descending thoracic aorta. 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
the aortic hiatus, 4 cm. Progressive peribronchial thickening in the left lower lobe with associated bronchial luminal encroachment and mucous plugging. Minor atelectasis in the posterior lung bases, left greater than right. No evidence of pneumonia.
Global cardiomegaly. Hiatal hernia. Stable small nonspecific semisolid nodule in the lateral right lower lobe measuring 6.1 mm.
ECHO 08/27/23- Normal LV size with moderately reduced systolic function. LVEF is 30 to 35% by visual estimation with global diffuse hypokinesis. Mild concentric LVH. Normal right ventricular size and function. Moderate to severe mitral
regurgitation.
Mild to moderate aortic stenosis. Moderate aortic regurgitation. Moderate to severe tricuspid regurgitation. Estimated pulmonary artery pressure of 48 mmHg, assuming a right atrial pressure of 3 mmHg. Compared to prior from October 27, 2021,
mitral regurgitation is now moderate to severe from moderate, aortic regurgitation is moderate from mild , and tricuspid regurgitation is now moderate to severe from moderate.
TTE 10-27-21 CONCLUSIONS: Moderately reduced left ventricular systolic function. Estimated left ventricular ejection fraction is 35-40%. Moderate aortic stenosis.Mild aortic regurgitation. Thickened mitral valve with MAC and echodensities on
ventricular side of the valve. Cannot exclude vegetation. Moderate tricuspid regurgitation. Moderate mitral regurgitation. Pulmonary hypertension. No prior study available for comparison.Patient is a 88-year-old female with previous history of
chronic bronchitis, congestive heart failure with reduced EF, nocturnal hypoxemia (declined sleep study) presenting to with complaints of increasing shortness of breath. She was recently discharged from 08/28/2023 with acute heart failure
exacerbation. She had been discharged on 2 L nasal cannula but currently requiring 6 L in the emergency room. At home she had been desaturating into the 70s. She has a history of nocturnal hypoxemia for which she has declined sleep study testing
or pursuing a CPAP device. Chest x-ray demonstrating bibasilar hazy opacities, proBNP 6950, WBC 16.6, ABG 7.42/57/99.
Subjective Data
-
Date of Service:
Date of Service: September 17, 2023
Chief Complaint: Pulmonary Follow Up
Subjective:
Patient seen and evaluated today at bedside. She is resting her head on the table when I walked in. She easily woke up, and saturating 92% on 3 L/min nasal cannula. Breathing at 16 breaths/min and heart rate 75. She has a poor, weak wet sounding
cough. Pulling about 1 L from incentive spirometer. She has no complaints. Denies chest pain, headache, abdominal pain, shortness of breath at rest, fevers or chills.
Objective Data
Data Reviewed
Vital Signs / I&O / Oxygen:
Vital Signs
Temp Pulse Resp BP Pulse Ox
98 F 76 24 136/49 94
09/17/23 07:22 09/17/23 08:30 09/17/23 08:18 09/17/23 08:30 09/17/23 09:47
Intake and Output
09/16/23 09/17/23 09/18/23
06:59 06:59 06:59
Intake Total 240 / 240
Output Total 475 / 475 535 / 535
Balance -235 / -235 -535 / -535
SaO2 94
Nasal Cannula flow liters per 3
minute
Physical Exam
General: Comfortable and Other (poor cough)
HEENT: Normocephalic and Anicteric
Cardiovascular: S1-S2, Regular Rhythm, Murmur (2/6 systolic murmur) and Peripheral Edema (Negative)
Respiratory: Wheeze (Negative), Crackles (Coarse crackles right base. Slightly decreased left base, with mild crackles), Rhonchi (Bilaterally), Non-Labored Respirations, Stridor (n) and Other (Slight decreased left base)
GI: Soft, Non Distended, Non Tender and Normal Bowel Sounds
Neurology: Awake, Alert and No Motor Deficits (Generally weak)
Skin: Warm, Dry and Jaundice (Negative)
Labs/Micro/Reports
Lab Data
09/17/23 05:47
09/17/23 05:47
Microbiology
09/13/23 17:15 Sputum Respiratory Culture - Final
Usual Respiratory Ugme
09/13/23 17:15 Sputum Gram Stain - Final
--- NOTE | 2023-09-17 11:27 | CM ---
CM received a call this morning; instructed not to order nebulizer for patient
[2023-09-17 11:52] LABS: Glucose - Point of Care 231 mg/dl (70-99)
[2023-09-17] MEDS: NOVOLOG FLEXPEN-MODERATE RESISTANCE 3 UNITS SC (11:53)
[2023-09-17] MEDS: ROCEPHIN 1000 MG IV (15:13)
[2023-09-17] MEDS: STERILE WATER FOR INJECTION 10 ML IV (15:13)
[2023-09-17 16:44] LABS: Glucose - Point of Care 97 mg/dl (70-99)
--- NOTE | 2023-09-17 17:34 | PTCARENOTE ---
Pt presents as assessed, OOB to the chair for a majority of the day with the exception of an afternoon nap. Pt ambulated the hallways with daughter and PT. Pt underwent CXR and VSE this AM, tolerated well. Pt sent to IR this afternoon for
thoracentesis, procedure cancelled as US did not detect enough fluid accumulated to justify procedure. Pt's daughter, Joslyn, updated bedside and via telephone. Pt currently resting in bed, call lundberg within reach, remains on 3L O2 NC, tolerating with
POX at 94%.
[2023-09-17] MEDS: COZAAR 100 MG PO (18:14)
[2023-09-17 21:28] LABS: Glucose - Point of Care 123 mg/dl (70-99)
[2023-09-17] MEDS: LANTUS 0.0700000000000000067 UNITS SC (22:05)
[2023-09-18] VITALS (12 sets, daily range): BP systolic 87–133; BP diastolic 44–68; BMI 20.9
[2023-09-18 05:19] LABS: Hematocrit 30.7 % (37.0-47.0); Hemoglobin 9.8 g/dL (12.0-16.0); Mean Corp Hgb Conc. 31.9 g/dL (33.0-37.0); Mean Corpuscular Hgb 30.2 pg (27.0-31.0); Mean Corpuscular Volume 94.5 fL (81.0-99.0); Mean Platelet Volume 10.6 fL (7.4-10.4); Platelet Count 221 10^3/uL (130-400); Red Blood Cell Count 3.25 10^6/uL (4.20-5.40); Red Cell Dist. Width 12.9 % (11.5-14.5)
[2023-09-18] MEDS: SYNTHROID 25 MCG PO (05:21)
[2023-09-18 05:50] LABS: ALT (SGPT) 23 U/L (0-35); AST (SGOT) 25 U/L (14-36); Albumin 2.7 g/dl (3.5-5.0); Alkaline Phosphatase 64 U/L (38-126); Blood Urea Nitrogen 61 mg/dl (7-17); Calcium 9.6 mg/dl (8.4-10.2); Carbon Dioxide 36 mmol/L (22-30); Chloride 98 mmol/L (98-107); Estimated Creatinine Clearance 34 ml/min; Glucose 81 mg/dl (70-99); Sodium 138 mmol/L (135-145); Total Bilirubin 0.4 mg/dl (0.2-1.3); Total Protein 5.4 g/dl (6.3-8.2); eGFR 54.19
[2023-09-18 07:47] LABS: Glucose - Point of Care 115 mg/dl (70-99)
[2023-09-18] MEDS: DUONEB 3 ML INH ×4 (07:58→17:47)
[2023-09-18] MEDS: PULMICORT 0.5 MG INH ×2 (07:58→17:48)
--- NOTE | 2023-09-18 08:18 | PTCARENOTE ---
Pt OOB to BSC to void without incident Pt is AAOx3 forgetful at times , [place]UEVI . Pt is vpaced with coarse lungs on 3l O2 at 96% Pt for CT of chest.
[2023-09-18] MEDS: NOVOLOG FLEXPEN-MODERATE RESISTANCE SC (08:51)
[2023-09-18] MEDS: NOVOLOG FLEXPEN SC (08:52)
[2023-09-18] MEDS: LASIX 40 MG PO (08:52)
[2023-09-18] MEDS: LIPITOR 20 MG PO (08:52)
[2023-09-18] MEDS: MUCINEX 1200 MG PO (08:52)
[2023-09-18] MEDS: ASPIR LOW (ENTERIC COATED) 81 MG PO (08:53)
[2023-09-18] MEDS: VIBRAMYCIN 100 MG PO ×2 (08:53→20:32)
[2023-09-18] MEDS: VITAMIN B-12 500 MCG PO (08:53)
[2023-09-18] MEDS: VISBIOME 1 CAP PO (08:53)
[2023-09-18] MEDS: VITAMIN D3 (cholecalciferol) 25 MCG PO (08:54)
[2023-09-18] MEDS: THERAGRAN 1 TABLET PO (08:54)
[2023-09-18] MEDS: PACERONE 200 MG PO (08:54)
[2023-09-18] MEDS: HEPARIN 5000 UNITS SC ×2 (08:55→20:32)
[2023-09-18] MEDS: COREG 3.125 MG PO ×2 (08:56→20:32)
--- NOTE | 2023-09-18 11:00 | PTCARENOTE ---
Pt has CT of chest today without incident. Dr Flores will calldaughter with update.
[2023-09-18] MEDS: NOVOLOG FLEXPEN-MODERATE RESISTANCE 5 UNITS SC ×2 (12:02→16:43)
[2023-09-18] MEDS: NOVOLOG FLEXPEN 2 UNITS SC ×2 (12:02→16:44)
[2023-09-18 12:06] LABS: Glucose - Point of Care 261 mg/dl (70-99)
[2023-09-18] MEDS: TYLENOL 1000 MG PO (13:05)
--- NOTE | 2023-09-18 13:34 | W.PN.HOSP.TC ---
Today's Communication/Plan
-
Continue p.o. Lasix
Pulmonary recommendations for once again attempting thoracentesis
Weaning O2
Antibiotics
Assessment / Plan
Assessment / Plan
Physical Exam
General: Well Developed, Well Nourished, No Apparent Distress and Comfortable
HEENT: NormoCephalic, Anicteric and Moist mucous membranes
Respiratory: Distant breath sounds
Cardiac: S1/S2 and Regular Rhythm
Breast: Deferred by me
GI: Soft, Non Tender and Non Distended
Genito-urinary: Deferred by me
Musculoskeletal: No Clubbing, No Cyanosis and No Edema
Skin: Warm and Dry
Neuro: Awake and Alert
Hematologic/Lymphatic: No Lymphadenopathy
Psych: Calm
#Acute on chronic hypoxic respiratory failure
-2/2 to pneumonia; less likely acute hf at this time
- 3L today
-DCed on 2L prior
-wean o2 as tolerated; goal o2 >88%
-cont abx - 10-14 day course
-incentive shukri, acapella
-Start nebulized bronchodilators + budesonide - nebs on dc
-Mucolytics with mucinex and vest therapy + flutter valve
-Chest PT
-F/u Pulm
-PT/OT - early ambulation
-VSE - no aspiration
� Chest CT with moderate pleural effusion although was not able to be visualized on ultrasound�defer to pulmonary on we should attempt thoracentesis again
#Sepsis
#Pneumonia, CAP v bronchitis
-cont abx - broaden if decompensates - 14 days total
-sputum cultures - usual gume
#Chronic heart failure reduced EF
-Pleural effusions on cxr
-restart Home lasix
#CKD 3B -baseline creatinine suspected to be 1.4 during recent hospitalization, currently 1.3.
- Suspect she has a component of prerenal azotemia, volume depletion.
-Hypercalcemia noted and likely due to volume contraction.
-Metabolic alkalosis suspected to be due to contraction alkalosis.
-Hold nifedipine.;
-Resume losartan
-restart lasix
-Discontinue ibuprofen.
#COPD without exacerbation
-no appreciable wheeze on exam, but low threshold to start systemic steroids.
-Completed a course of prednisone last week with improvement in her breathing according to family. Use nebs [id number] and as needed.
#Paroxysmal atrial fibrillation -On amiodarone. Not on anticoagulation for unclear reasons.
#Valvular heart disease -recent echocardiogram done on August 26 showed moderate to severe MR, moderate to severe TR, mild to moderate AAS, moderate AR. Valvular disease appears to have progressed compared to October 2021 echocardiogram.
#Essential hypertension -relative hypotension noted. Hold nifedipine, losartan.
#Hypothyroidism -continue levothyroxine.
#Hyperlipidemia -on atorvastatin.
#Normocytic anemia -suspect chronic. Hemoglobin 11.0, appears to be at baseline. Outpatient follow-up.
#Hyperglycemia Check hemoglobin A1c 7.5; Sliding scale; Start lantus 5u qhs
#Likely BETZY
-nocturnal hypoxemia noted
-Declined sleep study
#DM
-Lantus titration
#DVT ppx - HSQ
Full code
Anticipated Discharge: 24 - 48 hours
Subjective/Interval History
-
Date of Service: September 18, 2023
No acute events overnight
Objective Data
-
Labs:
Laboratory Results
09/18/23
05:07
WBC 11.0 H
Hgb 9.8 L
Hct 30.7 L
Plt Count 221
Sodium 138
Potassium 4.0
Chloride 98
Carbon Dioxide 36 H
BUN 61 H
Creatinine 1.0
Glucose 81
Calcium 9.6
Total Bilirubin 0.4
AST 25
ALT 23
Alkaline Phosphatase 64
Vital Signs:
Vital Signs
Temp Pulse Resp BP Pulse Ox
98.1 F 71 23 125/51 90
09/18/23 11:48 09/18/23 12:00 09/18/23 12:00 09/18/23 12:00 09/18/23 12:00
I&O
09/17/23 09/18/23 09/19/23
06:59 06:59 06:59
Intake Total 960 / 960
Output Total 535 / 535 595 / 595 320 / 320
Balance -535 / -535 365 / 365 -320 / -320
Review of Systems
-
History Source: Patient
All other systems: Not reviewed unless documented
Physical Exam
-
General: No Apparent Distress
HEENT: Moist Mucous Membranes
Respiratory: Decreased Breath Sounds (decreased left base )
Cardiac: S1/S2 and Irregular Rhythm; Negative Tachycardic
GI: Soft, Nontender, Nondistended and Normal Bowel Sounds
Musculoskeletal: Other
Neuro: AO x 3
Psych: Calm
Data Reviewed
-
Diagnostic Radiology: Image personally visualized and interpreted and Report Reviewed by me
Labs: Labs Reviewed by me
--- NOTE | 2023-09-18 13:40 | W.PN.PUL3 ---
Today's Communication / Plan
-
Given subjective improvement, will follow-up pleural effusion conservatively
Unable to tap per ultrasound
Repeat chest x-ray 09/19
Aspiration precautions, positional therapy, behavioral changes
Continue airway clearance measures
Oxygen requirement is improving
Assessment
-
Patient is a 88-year-old female with previous history of chronic bronchitis, congestive heart failure with reduced EF, nocturnal hypoxemia (declined sleep study) presenting to with complaints of increasing shortness of breath. She was recently
discharged from 08/28/2023 with acute heart failure exacerbation. She had been discharged on 2 L nasal cannula but currently requiring 6 L in the emergency room. At home she had been desaturating into the 70s. She has a history of nocturnal
hypoxemia for which she has declined sleep study testing or pursuing a CPAP device. Chest x-ray demonstrating bibasilar hazy opacities, proBNP 6950, WBC 16.6, ABG 7.42/57/99.
Impression:
Acute hypoxic respiratory failure, on 12L/min midflow NC
Acute HF exacerbation with rEF, proBNP 6950 (prior 8120)
HCAP involving RML, medial RLL + LLL- believe this is the main component causing her SOB based on CT chest from 09/09/2023
Leukocytosis
Acute on chronic SOB
Chronic hypercarbic resp failure
Acute kidney injury
DM type II with A1C: 7.5 on 09/12/2023
Loculated left pleural effusion
Chronic aspiration syndrome suspected
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
Adm for COVID infection 05/2022
L hip intertrochanteric fracture, s/p L hip luiz construct for standard intertrochanteric fracture 06-03-[address] with moderate COPD (normal DLco/VA of 97%, with DLco: 64% via PFT from 09/2022)
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
HTN
CAD, s/p CABG
HFrEF (35-40%)
Follows cardiology, Dr. De Los Santos
AICD
Recurrent C Diff Colitis
CKD III
Hiatal hernia
Bilateral Wrist ORIF
Former Smoker (quit smoking 37y ago after 20 pack years history)
Pulmonary nodule -- 6.1 mm slightly irregular part solid nodule in the lateral right lower lobe on most recent CT Chest 04/2022, previously measuring 6.3 mm.
Bronchitis, mucopurulent recurrent/yearly
Chronic aspiration syndrome suspected
Nocturnal hypoxemia, oximetry test w/ O2 sharmin of 77%, she has declined sleep study
Plan/recommendations
At this time, patient appears to be subjectively and electively improved. She feels her breathing and cough have improved
She is more compliant with her Acapella device and is using it more appropriately
Chest exam with coarse crackles/rhonchi right base, decreased breath sounds left base
Reviewed CT chest.
It appears her left loculated effusion is new compared to 09/09/2023
Patchy right lower lobe pneumonia has improved
VSE suggestive of chronic aspiration syndrome
She has history of nocturnal hypoxemia
Previously refused sleep study
Recent admission for AE CHF, was discharged on 2L NC on 08/28/2023
Moving forward
Given her subjective improvement, lack of obvious fluid to be drained per ultrasound, will continue to follow conservatively
CT chest noted, loculated left pleural effusion which is new just over the last 1 week
We will follow by exam
Continue with airway clearance measures
Chest x-ray 09/14 with increased left pleuroparenchymal process. Decreased breath sounds left base
May need to revisit ultrasound-guided tap depending on radiographic findings and exam
Will consider revisiting thoracentesis 09/19 depending on clinical progress
Check chest x-ray 09/19
Abx started -currently on ceftriaxone + Doxy s/p 1 dose of Zosyn on admission
Sputum culture obtained on 09/13/2023 � preliminarily shows usual respiratory gume
WBC noted, no fevers; trend WBC
Airway clearance measures --> continue vest
Acapella valve, antitussive therapy
Asp precs
High risk for BETZY, nocturnal hypoxemia noted
Declined sleep study -this can be discussed as an outpatient
ABG . showing chronic CO2 retention
Patient did not tolerate CPAP � discontinued on 09/12
Noted h/o heavy smoking in past
Chest CT with mild centrilobular emphysema and bronchial wall thickening, and patient does endorse frequent sputum production
Chronic bronchitis
She also has a large hiatal hernia. Discussed possibility of dysphagia, silent aspiration, aspiration syndrome. This is confirmed per VSE
Reviewed aspiration precautions, positional therapy, behavioral changes given large hiatal hernia
Continue albuterol HFA prn
Given her PFT findings of normal DLco/VA of 97%, with DLco: 64% via PFT from 09/2022, this is concerning for a component of asthma, especially with her bronchial wall thickening. Continue DuoNebs + budesonide, and she seems to enjoy this and is
deriving a benefit from nebulized bronchodilators
Plan to discharge with home nebulizer and budesonide/DuoNebs
Acute on chronic HF s/p lasix 40mg IVP x1 on 09/12/2023 --> currently stopped due to CARLOS
CHF mgmt
Lasix per primary service
DVT prophylaxis
PT/OT, deconditioning a factor as well (PT/OT as pt only pulling ~1,000 L from IS, which is very low)
Disposition efforts
Pulmonary service will continue to follow along.
Diagnostic tests:
CXR 09/12/23- Parenchymal opacities within both lower lobes, left greater than right, similar to recent CT of the chest. Major differential considerations of atelectasis and/or pneumonia. Band of atelectasis within the right middle lobe, stable from
recent CT of the chest. Cardiomegaly with no findings to suggest pulmonary edema/active vascular congestion. Of note, dilation of the thoracic aorta is present on recent CT of the chest, with measurements given on that report, and this dilation is
more difficult to visualize radiographically.
CXR 06-05-22, c/w , 05-08-22, Oct. portable films, blurred R diaphragm, no gross infiltrate\\
CT CHEST 09/09/23- Minimal posterior left pleural effusion, similar to previous CT examination of May 09, 2022. Interval development of confluent parenchymal airspace opacities within the posterior aspect of both lower lobes, most likely
representing atelectasis. Pneumonia is difficult to exclude by imaging alone. Band of atelectasis within the right middle lobe, extending along the superior margin of the major fissure, new. Mild associated bronchiectasis. Thin linear densities
within the anterior and inferior aspect of the right upper lobe, slightly increased from previous examination, and likely representing atelectasis. Moderate hiatal hernia/partially intrathoracic stomach, extending into the medial and inferior aspect
of the right hemithorax. Moderate to severe calcification of the thoracic aorta. Tortuosity and dilation of the thoracic aorta, which is stable on direct comparison, with measurements given above. Stable compression deformity of the T8 vertebral
body. No evidence for new compression deformity.
Chest CT s/c 05-09-22 IMPRESSION: Ascending aortic aneurysmal dilatation measuring up to 5 cm. Aneurysmal dilatation of the aortic arch, 3.8 cm. Diffuse ectasia of the descending thoracic aorta. 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
the aortic hiatus, 4 cm. Progressive peribronchial thickening in the left lower lobe with associated bronchial luminal encroachment and mucous plugging. Minor atelectasis in the posterior lung bases, left greater than right. No evidence of pneumonia.
Global cardiomegaly. Hiatal hernia. Stable small nonspecific semisolid nodule in the lateral right lower lobe measuring 6.1 mm.
ECHO 08/27/23- Normal LV size with moderately reduced systolic function. LVEF is 30 to 35% by visual estimation with global diffuse hypokinesis. Mild concentric LVH. Normal right ventricular size and function. Moderate to severe mitral
regurgitation.
Mild to moderate aortic stenosis. Moderate aortic regurgitation. Moderate to severe tricuspid regurgitation. Estimated pulmonary artery pressure of 48 mmHg, assuming a right atrial pressure of 3 mmHg. Compared to prior from October 27, 2021,
mitral regurgitation is now moderate to severe from moderate, aortic regurgitation is moderate from mild , and tricuspid regurgitation is now moderate to severe from moderate.
TTE 10-27-21 CONCLUSIONS: Moderately reduced left ventricular systolic function. Estimated left ventricular ejection fraction is 35-40%. Moderate aortic stenosis.Mild aortic regurgitation. Thickened mitral valve with MAC and echodensities on
ventricular side of the valve. Cannot exclude vegetation. Moderate tricuspid regurgitation. Moderate mitral regurgitation. Pulmonary hypertension. No prior study available for comparison.Patient is a 88-year-old female with previous history of
chronic bronchitis, congestive heart failure with reduced EF, nocturnal hypoxemia (declined sleep study) presenting to with complaints of increasing shortness of breath. She was recently discharged from 08/28/2023 with acute heart failure
exacerbation. She had been discharged on 2 L nasal cannula but currently requiring 6 L in the emergency room. At home she had been desaturating into the 70s. She has a history of nocturnal hypoxemia for which she has declined sleep study testing
or pursuing a CPAP device. Chest x-ray demonstrating bibasilar hazy opacities, proBNP 6950, WBC 16.6, ABG 7.42/57/99.
Subjective Data
-
Date of Service:
Date of Service: September 18, 2023
Chief Complaint: Pulmonary Follow Up
Subjective:
Patient seen and examined earlier this morning. Patient feels breathing has improved. She continues with her airway clearance, denies chest pain, hemoptysis. Left chest ultrasound without significant fluid for drainage
Objective Data
Data Reviewed
Vital Signs / I&O / Oxygen:
Vital Signs
Temp Pulse Resp BP Pulse Ox
98.1 F 71 23 125/51 90
09/18/23 11:48 09/18/23 12:00 09/18/23 12:00 09/18/23 12:00 09/18/23 12:00
Intake and Output
09/17/23 09/18/23 09/19/23
06:59 06:59 06:59
Intake Total 960 / 960
Output Total 535 / 535 595 / 595 320 / 320
Balance -535 / -535 365 / 365 -320 / -320
SaO2 90
Nasal Cannula flow liters per 3
minute
Physical Exam
General: Comfortable and Other (poor cough)
HEENT: Normocephalic and Anicteric
Cardiovascular: S1-S2, Regular Rhythm, Murmur (2/6 systolic murmur) and Peripheral Edema (Negative)
Respiratory: Wheeze (Negative), Crackles (Coarse crackles right base. Slightly decreased left base, with mild crackles), Rhonchi (Bilaterally), Non-Labored Respirations, Stridor (n) and Other (Slight decreased left base)
GI: Soft, Non Distended, Non Tender and Normal Bowel Sounds
Neurology: Awake, Alert and No Motor Deficits (Generally weak)
Skin: Warm, Dry and Jaundice (Negative)
Labs/Micro/Reports
Lab Data
09/18/23 05:07
09/18/23 05:07
Microbiology
09/13/23 17:15 Sputum Respiratory Culture - Final
Usual Respiratory Gume
09/13/23 17:15 Sputum Gram Stain - Final
[2023-09-18 16:38] LABS: Glucose - Point of Care 297 mg/dl (70-99)
[2023-09-18] MEDS: STERILE WATER FOR INJECTION 10 ML IV (16:40)
[2023-09-18] MEDS: ROCEPHIN 1000 MG IV (16:40)
[2023-09-18] MEDS: COZAAR 100 MG PO (17:52)
[2023-09-18] MEDS: LANTUS 0.0700000000000000067 UNITS SC (22:07)
[2023-09-18 22:18] LABS: Glucose - Point of Care 231 mg/dl (70-99)
[2023-09-19] VITALS (7 sets, daily range): BP systolic 103–140; BP diastolic 49–73; BMI 21.2
--- NOTE | 2023-09-19 01:43 | PTCARENOTE ---
Caring for patient overnight. Pleasant, aaox3. Denies pain. No assessment changes. Remains on 3LNC, Vpaced. OOB to BSCx1. Lungs diminished and slight crackles at bases. No other issues. Bed alarm on. Call lundberg in reach. Will monitor.
[2023-09-19] MEDS: SYNTHROID 25 MCG PO (05:15)
[2023-09-19 05:36] LABS: Hematocrit 28.9 % (37.0-47.0); Hemoglobin 9.3 g/dL (12.0-16.0); Mean Corp Hgb Conc. 32.2 g/dL (33.0-37.0); Mean Corpuscular Hgb 30.5 pg (27.0-31.0); Mean Corpuscular Volume 94.8 fL (81.0-99.0); Mean Platelet Volume 10.8 fL (7.4-10.4); Platelet Count 194 10^3/uL (130-400); Red Blood Cell Count 3.05 10^6/uL (4.20-5.40); Red Cell Dist. Width 12.8 % (11.5-14.5); White Blood Cell Count 10.9 10^3/uL (4.8-10.8)
[2023-09-19 06:20] LABS: ALT (SGPT) 25 U/L (0-35); AST (SGOT) 23 U/L (14-36); Albumin 2.6 g/dl (3.5-5.0); Alkaline Phosphatase 68 U/L (38-126); Blood Urea Nitrogen 58 mg/dl (7-17); Calcium 9.6 mg/dl (8.4-10.2); Carbon Dioxide 31 mmol/L (22-30); Chloride 97 mmol/L (98-107); Estimated Creatinine Clearance 34 ml/min; Glucose 106 mg/dl (70-99); Potassium 3.9 mmol/L (3.5-5.1); Sodium 137 mmol/L (135-145); Total Bilirubin 0.3 mg/dl (0.2-1.3); Total Protein 5.4 g/dl (6.3-8.2); eGFR 54.19
[2023-09-19] MEDS: TYLENOL 1000 MG PO (06:35)
[2023-09-19] MEDS: DUONEB 3 ML INH ×2 (07:33→11:09)
[2023-09-19] MEDS: PULMICORT 0.5 MG INH (07:33)
[2023-09-19 08:50] LABS: Glucose - Point of Care 116 mg/dl (70-99)
[2023-09-19] MEDS: NOVOLOG FLEXPEN-MODERATE RESISTANCE SC ×2 (09:14→13:00)
[2023-09-19] MEDS: NOVOLOG FLEXPEN 2 UNITS SC ×2 (09:14→13:10)
[2023-09-19] MEDS: VITAMIN B-12 500 MCG PO (09:14)
[2023-09-19] MEDS: THERAGRAN 1 TABLET PO (09:15)
[2023-09-19] MEDS: ASPIR LOW (ENTERIC COATED) 81 MG PO (09:15)
[2023-09-19] MEDS: COREG 3.125 MG PO (09:15)
[2023-09-19] MEDS: VIBRAMYCIN 100 MG PO (09:15)
[2023-09-19] MEDS: PACERONE 200 MG PO (09:15)
[2023-09-19] MEDS: LASIX 40 MG PO (09:15)
[2023-09-19] MEDS: LIPITOR 20 MG PO (09:15)
[2023-09-19] MEDS: VITAMIN D3 (cholecalciferol) 25 MCG PO (09:15)
[2023-09-19] MEDS: VISBIOME 1 CAP PO (09:15)
[2023-09-19] MEDS: HEPARIN 5000 UNITS SC (09:16)
--- NOTE | 2023-09-19 12:06 | W.PN.PUL3 ---
Today's Communication / Plan
-
Discontinue antibiotics
Aspiration precautions
Continue with airway clearance measures, nebulized therapy
Follow-up chest x-ray within a week as outpatient
Follow-up with pulmonary within 2 weeks. Information left in chart
Will require eventual follow-up CT imaging and/for repeat attempted left thoracentesis which can be done as outpatient
Home oxygen already set up
Okay for discharge from pulmonary standpoint
Assessment
-
Patient is a 88-year-old female with previous history of chronic bronchitis, congestive heart failure with reduced EF, nocturnal hypoxemia (declined sleep study) presenting to with complaints of increasing shortness of breath. She was recently
discharged from 08/28/2023 with acute heart failure exacerbation. She had been discharged on 2 L nasal cannula but currently requiring 6 L in the emergency room. At home she had been desaturating into the 70s. She has a history of nocturnal
hypoxemia for which she has declined sleep study testing or pursuing a CPAP device. Chest x-ray demonstrating bibasilar hazy opacities, proBNP 6950, WBC 16.6, ABG 7.42/57/99.
Impression:
Acute hypoxic respiratory failure, on 12L/min midflow NC
Acute HF exacerbation with rEF, proBNP 6950 (prior 8120)
HCAP involving RML, medial RLL + LLL- believe this is the main component causing her SOB based on CT chest from 09/09/2023
Leukocytosis
Acute on chronic SOB
Chronic hypercarbic resp failure
Acute kidney injury
DM type II with A1C: 7.5 on 09/12/2023
Loculated left pleural effusion
Chronic aspiration syndrome suspected
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
Adm for COVID infection 05/2022
L hip intertrochanteric fracture, s/p L hip luiz construct for standard intertrochanteric fracture 06-03-[address] with moderate COPD (normal DLco/VA of 97%, with DLco: 64% via PFT from 09/2022)
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
HTN
CAD, s/p CABG
HFrEF (35-40%)
Follows cardiology, Dr. De Los Santos
AICD
Recurrent C Diff Colitis
CKD III
Hiatal hernia
Bilateral Wrist ORIF
Former Smoker (quit smoking 37y ago after 20 pack years history)
Pulmonary nodule -- 6.1 mm slightly irregular part solid nodule in the lateral right lower lobe on most recent CT Chest 04/2022, previously measuring 6.3 mm.
Bronchitis, mucopurulent recurrent/yearly
Chronic aspiration syndrome suspected
Nocturnal hypoxemia, oximetry test w/ O2 sharmin of 77%, she has declined sleep study
Plan/recommendations
At this time, patient appears to be subjectively and electively improved. She feels her breathing and cough have improved
She is more compliant with her Acapella device and is using it more appropriately
Chest exam with coarse crackles/rhonchi right base, decreased breath sounds left base
She is moving air slightly better the left base
Reviewed CT chest.
It appears her left loculated effusion is new compared to 09/09/2023
Patchy right lower lobe pneumonia has improved
VSE suggestive of chronic aspiration syndrome
She has history of nocturnal hypoxemia
Previously refused sleep study
Recent admission for AE CHF, was discharged on 2L NC on 08/28/2023
She has oxygen therapy at home
Moving forward
Given her subjective improvement, lack of obvious fluid to be drained per ultrasound, will continue to follow conservatively
CT chest noted, loculated left pleural effusion which is new just over the last 1 week
We will follow by exam
Continue with airway clearance measures
Chest x-ray 09/14 with increased left pleuroparenchymal process. Decreased breath sounds left base
May need to revisit ultrasound-guided tap depending on radiographic findings and exam
Will consider revisiting thoracentesis 09/19 depending on clinical progress
Will repeat chest x-ray as outpatient within the next week
Abx started -currently on ceftriaxone + Doxy s/p 1 dose of Zosyn on admission
Sputum culture obtained on 09/13/2023 � preliminarily shows usual respiratory gume
WBC noted, no fevers; trend WBC
Airway clearance measures --> continue vest
Acapella valve, antitussive therapy
Asp precs
Would discontinue antibiotics
High risk for BETZY, nocturnal hypoxemia noted
Declined sleep study -this can be discussed as an outpatient
ABG showing chronic CO2 retention
Patient did not tolerate CPAP � discontinued on 09/12
Oxygen therapy already set up at home
Noted h/o heavy smoking in past
Chest CT with mild centrilobular emphysema and bronchial wall thickening, and patient does endorse frequent sputum production
Chronic bronchitis
She also has a large hiatal hernia. Discussed possibility of dysphagia, silent aspiration, aspiration syndrome. This is confirmed per VSE
Reviewed aspiration precautions, positional therapy, behavioral changes given large hiatal hernia
Continue albuterol HFA prn
Given her PFT findings of normal DLco/VA of 97%, with DLco: 64% via PFT from 09/2022, this is concerning for a component of asthma, especially with her bronchial wall thickening. Continue DuoNebs + budesonide, and she seems to enjoy this and is
deriving a benefit from nebulized bronchodilators
Plan to discharge with home nebulizer and budesonide/DuoNebs
Acute on chronic HF s/p lasix 40mg IVP x1 on 09/12/2023 --> currently stopped due to CARLOS
CHF mgmt
Lasix per primary service
DVT prophylaxis
PT/OT, deconditioning a factor as well (PT/OT as pt only pulling ~1,000 L from IS, which is very low)
She is okay for discharge from pulmonary standpoint
Will provide close follow-up and repeat chest x-ray within a week
Reviewed with patient and daughter at length. Reviewed with primary service
Disposition efforts
Diagnostic tests:
CXR 09/12/23- Parenchymal opacities within both lower lobes, left greater than right, similar to recent CT of the chest. Major differential considerations of atelectasis and/or pneumonia. Band of atelectasis within the right middle lobe, stable from
recent CT of the chest. Cardiomegaly with no findings to suggest pulmonary edema/active vascular congestion. Of note, dilation of the thoracic aorta is present on recent CT of the chest, with measurements given on that report, and this dilation is
more difficult to visualize radiographically.
CXR 06-05-22, c/w , 05-08-22, Oct. portable films, blurred R diaphragm, no gross infiltrate\\
CT CHEST 09/09/23- Minimal posterior left pleural effusion, similar to previous CT examination of May 09, 2022. Interval development of confluent parenchymal airspace opacities within the posterior aspect of both lower lobes, most likely
representing atelectasis. Pneumonia is difficult to exclude by imaging alone. Band of atelectasis within the right middle lobe, extending along the superior margin of the major fissure, new. Mild associated bronchiectasis. Thin linear densities
within the anterior and inferior aspect of the right upper lobe, slightly increased from previous examination, and likely representing atelectasis. Moderate hiatal hernia/partially intrathoracic stomach, extending into the medial and inferior aspect
of the right hemithorax. Moderate to severe calcification of the thoracic aorta. Tortuosity and dilation of the thoracic aorta, which is stable on direct comparison, with measurements given above. Stable compression deformity of the T8 vertebral
body. No evidence for new compression deformity.
Chest CT s/c 05-09-22 IMPRESSION: Ascending aortic aneurysmal dilatation measuring up to 5 cm. Aneurysmal dilatation of the aortic arch, 3.8 cm. Diffuse ectasia of the descending thoracic aorta. 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
the aortic hiatus, 4 cm. Progressive peribronchial thickening in the left lower lobe with associated bronchial luminal encroachment and mucous plugging. Minor atelectasis in the posterior lung bases, left greater than right. No evidence of pneumonia.
Global cardiomegaly. Hiatal hernia. Stable small nonspecific semisolid nodule in the lateral right lower lobe measuring 6.1 mm.
ECHO 08/27/23- Normal LV size with moderately reduced systolic function. LVEF is 30 to 35% by visual estimation with global diffuse hypokinesis. Mild concentric LVH. Normal right ventricular size and function. Moderate to severe mitral
regurgitation.
Mild to moderate aortic stenosis. Moderate aortic regurgitation. Moderate to severe tricuspid regurgitation. Estimated pulmonary artery pressure of 48 mmHg, assuming a right atrial pressure of 3 mmHg. Compared to prior from October 27, 2021,
mitral regurgitation is now moderate to severe from moderate, aortic regurgitation is moderate from mild , and tricuspid regurgitation is now moderate to severe from moderate.
TTE 10-27-21 CONCLUSIONS: Moderately reduced left ventricular systolic function. Estimated left ventricular ejection fraction is 35-40%. Moderate aortic stenosis.Mild aortic regurgitation. Thickened mitral valve with MAC and echodensities on
ventricular side of the valve. Cannot exclude vegetation. Moderate tricuspid regurgitation. Moderate mitral regurgitation. Pulmonary hypertension. No prior study available for comparison.Patient is a 88-year-old female with previous history of
chronic bronchitis, congestive heart failure with reduced EF, nocturnal hypoxemia (declined sleep study) presenting to with complaints of increasing shortness of breath. She was recently discharged from 08/28/2023 with acute heart failure
exacerbation. She had been discharged on 2 L nasal cannula but currently requiring 6 L in the emergency room. At home she had been desaturating into the 70s. She has a history of nocturnal hypoxemia for which she has declined sleep study testing
or pursuing a CPAP device. Chest x-ray demonstrating bibasilar hazy opacities, proBNP 6950, WBC 16.6, ABG 7.42/57/99.
Subjective Data
-
Date of Service:
Date of Service: September 19, 2023
Chief Complaint: Pulmonary Follow Up
Subjective:
Observed patient ambulating in the room with daughter. Patient is feeling much improved. Continues to have productive cough, denies hemoptysis. Using airway clearance measures. Denies chest pain, nausea, abdominal pain. Appears to be in good
spirits
Objective Data
Data Reviewed
Vital Signs / I&O / Oxygen:
Vital Signs
Temp Pulse Resp BP Pulse Ox
98.3 F 73 20 103/53 93
09/19/23 07:20 09/19/23 11:10 09/19/23 11:10 09/19/23 10:00 09/19/23 11:56
Intake and Output
09/18/23 09/19/23 09/20/23
06:59 06:59 06:59
Intake Total 960 / 960
Output Total 595 / 595 520 / 520
Balance 365 / 365 -520 / -520
SaO2 93
Nasal Cannula flow liters per 3
minute
Physical Exam
General: Comfortable
HEENT: Normocephalic and Anicteric
Cardiovascular: S1-S2, Regular Rhythm, Murmur (2/6 systolic murmur) and Peripheral Edema (Negative)
Respiratory: Wheeze (Negative), Crackles (Coarse crackles right base. Slightly decreased left base, with mild crackles), Rhonchi (Bilaterally), Non-Labored Respirations, Stridor (n), Egophony (n) and Other (Slight decreased left base)
GI: Soft, Non Distended, Non Tender and Normal Bowel Sounds
Neurology: Awake, Alert and No Motor Deficits (Generally weak, ambulating)
Skin: Warm, Dry and Jaundice (Negative)
Labs/Micro/Reports
Lab Data
09/19/23 05:20
09/19/23 05:20
--- NOTE | 2023-09-19 12:37 | W.PN.HOSP.TC ---
Addendum entered and electronically signed by Fernando Narvaez MD 09/19/23 15:23:
[id number]
Addendum entered and electronically signed by Fernando Narvaez MD 09/19/23 12:53:
DM- a1c 7.5- with her age - will not dc on insulin regimen. Should f/u with pcp for further titration. hyperglycemia most likely related to acute infection which is improved.
Original Note:
Today's Communication/Plan
-
Follow-up chest x-ray within a week as outpatient
Follow-up with pulmonary within 2 weeks. Information left in chart
Will require eventual follow-up CT imaging and/for repeat attempted left thoracentesis which can be done as outpatient
F/u Surg, PCP, Pulmonary, Cardiology outpatient
Nebulizers outpatient - duonebs and budesonide
Assessment / Plan
Assessment / Plan
Physical Exam
General: Well Developed, Well Nourished, No Apparent Distress and Comfortable
HEENT: NormoCephalic, Anicteric and Moist mucous membranes
Respiratory: Distant breath sounds
Cardiac: S1/S2 and Regular Rhythm
Breast: Deferred by me
GI: Soft, Non Tender and Non Distended
Genito-urinary: Deferred by me
Musculoskeletal: No Clubbing, No Cyanosis and No Edema
Skin: Warm and Dry
Neuro: Awake and Alert
Hematologic/Lymphatic: No Lymphadenopathy
Psych: Calm
#Acute on chronic hypoxic respiratory failure
-2/2 to pneumonia; less likely acute hf at this time
- back on 3L
-wean o2 as tolerated; goal o2 >88%
-completed abx course
-incentive shukri, acapella
-Start nebulized bronchodilators + budesonide nebs - will discharge on this
-Follow-up chest x-ray within a week as outpatient
-Follow-up with pulmonary within 2 weeks.
-Will require eventual follow-up CT imaging and/for repeat attempted left thoracentesis which can be done as outpatient
-Mucolytics with mucinex and vest therapy + flutter valve
-Chest PT
-F/u Pulm
-PT/OT - early ambulation
-VSE - no aspiration
� Chest CT with moderate pleural effusion although was not able to be visualized on ultrasound�defer to pulmonary on we should attempt thoracentesis again
#large Hiatal hernia
-can be followed up by gen surg outpatient if desired
-doubt surgical candidate
#Sepsis
#Pneumonia, CAP v bronchitis
-completed abx course
-sputum cultures - usual gume
#Chronic heart failure reduced EF
-Pleural effusions on cxr
-restart Home lasix
-BMP outpatient
-F/u cards outpatient
#CKD 3B -baseline creatinine suspected to be 1.4 during recent hospitalization, currently 1.3.
- Suspect she has a component of prerenal azotemia, volume depletion.
-Hypercalcemia noted and likely due to volume contraction.
-Metabolic alkalosis suspected to be due to contraction alkalosis.
-stop nifedipine.;
-Resume losartan
-restart lasix
-bmp outpatient
-Discontinue ibuprofen.
#COPD without exacerbation
-no appreciable wheeze on exam, but low threshold to start systemic steroids.
-Completed a course of prednisone last week with improvement in her breathing according to family. Use nebs [id number] and as needed.
#Paroxysmal atrial fibrillation -On amiodarone. Not on anticoagulation for unclear reasons.
#Valvular heart disease -recent echocardiogram done on August 26 showed moderate to severe MR, moderate to severe TR, mild to moderate AAS, moderate AR. Valvular disease appears to have progressed compared to October 2021 echocardiogram.
#Essential hypertension -relative hypotension noted. Hold nifedipine, losartan.
#Hypothyroidism -continue levothyroxine.
#Hyperlipidemia -on atorvastatin.
#Normocytic anemia -suspect chronic. Hemoglobin 11.0, appears to be at baseline. Outpatient follow-up.
#Hyperglycemia Check hemoglobin A1c 7.5; Sliding scale; Start lantus 5u qhs
#Likely BETZY
-nocturnal hypoxemia noted
-Declined sleep study
#DM
-Lantus titration
#DVT ppx - HSQ
Full code
More than 30 minutes spent in discharge including
Final examination of the patient
Summarizing hospital stay
Instructions for continuing care to all relevant caregivers
Preparation of discharge records, prescriptions, and referral forms
Total time spent (35 in minutes):
Anticipated Discharge: Today
Subjective/Interval History
-
Date of Service: September 19, 2023
stable, no acute events overnight
Objective Data
-
Labs:
Laboratory Results
09/19/23
05:20
WBC 10.9 H
Hgb 9.3 L
Hct 28.9 L
Plt Count 194
Sodium 137
Potassium 3.9
Chloride 97 L
Carbon Dioxide 31 H
BUN 58 H
Creatinine 1.0
Glucose 106 H
Calcium 9.6
Total Bilirubin 0.3
AST 23
ALT 25
Alkaline Phosphatase 68
Vital Signs:
Vital Signs
Temp Pulse Resp BP Pulse Ox
98.3 F 73 20 103/53 93
09/19/23 07:20 09/19/23 11:10 09/19/23 11:10 09/19/23 10:00 09/19/23 11:56
I&O
09/18/23 09/19/23 09/20/23
06:59 06:59 06:59
Intake Total 960 / 960
Output Total 595 / 595 520 / 520
Balance 365 / 365 -520 / -520
Review of Systems
-
History Source: Patient
All other systems: Not reviewed unless documented
Data Reviewed
-
Diagnostic Radiology: Image personally visualized and interpreted and Report Reviewed by me
Labs: Labs Reviewed by me
--- NOTE | 2023-09-19 12:40 | CM ---
Rose Marie is cleared for discharge today to home. She has O2 from [employer] already in the home, as well as a nebulizer. Patient seen bedside with her son in the room.
Patient is going home with her daughter who is an RN. I spoke with daughter about home care, however she and patient have declined home care services.
Rose Marie has home oxygen with [employer] and nebulizer at home.
Plan: Discharge to home with daughter; no needs identified.
[2023-09-19 12:41] LABS: Glucose - Point of Care 119 mg/dl (70-99)
--- NOTE | 2023-09-19 12:50 | W.DS.TRANS ---
DC Summary - Signwriter
-
Discharge Instructions:
Discharge Diagnosis/Procedures Acute hypoxic respiratory failure, on 12L/min
midflow NC
Acute HF exacerbation with rEF, proBNP 6950 (
prior 8120)
HCAP involving RML, medial RLL + LLL-
Diet Low Cholesterol,Low Fat,Restrict fluids to 48 oz
Activity As tolerated
Blood Work cbc, cmp in 7 days
Instructions:
Stand-Alone Forms:
Changes to Home Medications: Yes
Discharge Medications:
DC Medications w/original date entered in [employer]
acetaminophen 500 mg tablet (Tylenol Extra Strength) 1,000 mg PO Q6HPRN PRN mild pain 08/26/23
amiodarone 200 mg tablet 200 mg PO DAILY AFIB 08/26/23
aspirin 81 mg tablet,delayed release 81 mg PO DAILY Blood Clot Prevention/Tx 08/26/23
atorvastatin 20 mg tablet 20 mg PO DAILY High Cholesterol 08/26/23
carvedilol 3.125 mg tablet 3.125 mg PO BID Blood Pressure 08/26/23
cholecalciferol (vitamin D3) 25 mcg (1,000 unit) tablet 25 mcg PO DAILY Supplement 08/26/23
cyanocobalamin (vitamin B-12) 500 mcg tablet 500 mcg PO DAILY Supplement 08/26/23
levothyroxine 25 mcg tablet 25 mcg PO DAILY@1400 Thyroid 08/26/23
losartan 100 mg tablet 100 mg PO QPM Blood Pressure 08/26/23
wifzrixfcupl-xsisvsqa-julhur tablet 1 tab PO DAILY Supplement 08/26/23
potassium chloride 20 mEq tablet,extended release(part/cryst) (Klor-Con M) 10 meq PO MOWEFR Supplement 08/26/23
furosemide 40 mg tablet (Lasix) 40 mg PO DAILY #33 tabs 08/28/23
ibuprofen 200 mg capsule 400 mg PO Q4HPRN PRN mild pain 09/12/23
budesonide 0.5 mg/2 mL suspension for nebulization 0.5 mg (2 mL) inhalation R BID #60 mL 09/19/23
ipratropium 0.5 mg-albuterol 3 mg (2.5 mg base)/3 mL nebulization soln 3 ml inhalation R Q4HPRN PRN SOB #180 mL 09/19/23
Home Medication Changes
budesonide 0.5 mg/2 mL suspension for nebulization 0.5 mg (2 mL) inhalation R BID #60 mL 09/19/23
ipratropium 0.5 mg-albuterol 3 mg (2.5 mg base)/3 mL nebulization soln 3 ml inhalation R Q4HPRN PRN SOB #180 mL 09/19/23
Pending Results: No
[2023-09-19] MEDS: DUONEB INH (14:21)
== END 2023-09-19 14:00 | disposition home or self-care (01) | DRG 871 ==
LOC: IMU 13:03
PROVIDERS: ADMITTING PHYSICIAN Hospitalist; ATTENDING PHYSICIAN Internal Medicine; CONSULT PHYSICIAN Internal Medicine; EMERGENCY PHYSICIAN Student in an Organized Health Care Education/Training Program; FAMILY PHYSICIAN Family Medicine
PROC: 5A09357 Assistance with Respiratory Ventilation, Less than 24 Consecutive Hours, Continuous Positive Airway Pressure (ICD-10-PCS; 2023-09-13)
DX: A41.9 Sepsis, unspecified organism (principal); I50.23 Acute on chronic systolic (congestive) heart failure; J18.9 Pneumonia, unspecified organism; J96.21 Acute and chronic respiratory failure with hypoxia; I13.0 Hypertensive heart and chronic kidney disease with heart failure and stage 1 through stage 4 chronic kidney disease, or unspecified chronic kidney disease; E87.3 Alkalosis; N17.9 Acute kidney failure, unspecified; I25.10 Atherosclerotic heart disease of native coronary artery without angina pectoris; E78.00 Pure hypercholesterolemia, unspecified; H91.90 Unspecified hearing loss, unspecified ear; E03.9 Hypothyroidism, unspecified; D72.829 Elevated white blood cell count, unspecified; D64.9 Anemia, unspecified; R91.1 Solitary pulmonary nodule; J43.9 Emphysema, unspecified; E11.9 Type 2 diabetes mellitus without complications; G47.33 Obstructive sleep apnea (adult) (pediatric); Y95 Nosocomial condition; E83.52 Hypercalcemia; E78.5 Hyperlipidemia, unspecified; J42 Unspecified chronic bronchitis; I48.0 Paroxysmal atrial fibrillation; N18.32 Chronic kidney disease, stage 3b; Z87.891 Personal history of nicotine dependence; Z79.82 Long term (current) use of aspirin; Z87.442 Personal history of urinary calculi; Z99.81 Dependence on supplemental oxygen; Z11.52 Encounter for screening for COVID-19; Z95.1 Presence of aortocoronary bypass graft
CPT/HCPCS: 71046; 71250; 74230; 76604; 80048; 80053; 82805; 82962; 83036; 83880; 84484; 85025; 85027; 87070; 87205; 87811; 92611; 93005; 94640; 94660; 94669; 96365; 96367; 96375; 97110; 97116; 97163; 97166; 97167; 99291

== ENCOUNTER → 2023-09-27 13:05 | Outpatient (REF) | payer MEDICARE, SELFPAY | LOC: RAD 13:05 | PROVIDERS: ATTENDING PHYSICIAN Nurse Practitioner Family | DX: J90 Pleural effusion, not elsewhere classified (principal); Z87.01 Personal history of pneumonia (recurrent) | CPT/HCPCS: 71046 ==

== ENCOUNTER 2024-01-10 14:53 | Emergency (ER) | payer MEDICARE, SELFPAY ==
[2024-01-10 14:58] VITALS: BP 161/76
--- NOTE | 2024-01-10 17:11 | ED.GENMED ---
History of Present Illness
<Pennie Tolliver PA-C - Last Filed: 01/10/24 23:42>
General
Chief Complaint: Fall
Source: patient and family (Daughter at bedside who witnessed fall)
Exam Limitations: none
Time Seen by Provider: 01/10/24 16:27
Nursing documentation reviewed up to this point in time: agreed with
History of Present Illness
History of Present Illness:
80-year-old female with history atrial fibrillation, CHF, CAD, hypertension, hyperlipidemia with defibrillator presenting to the emergency department following mechanical fall at home earlier with associated head strike. Daughter was at home and
witnessed fall. Patient has a trip and fell striking forehead on tile floor and bracing with right arm. No LOC.
Patient presents with pain in right elbow. No numbness/tingling in right arm. She does note some pain in right knee although ambulating without difficulty.
No headache, visual changes, or neck pain. She takes baby aspirin, no other thinners.
Past History
<Pennie Tolliver PA-C - Last Filed: 01/10/24 23:42>
Past History
ED Past Medical History: Arrthythmia, CAD, CHF, HTN, Hypercholesterolemia and Valvular disease
ED Past Surgical History: Cardiac (CABG, AICD) and Orthopedic
Social History
Tobacco: Former smoker
Alcohol: None
Drug: None
Personal:
Living: alone
Phy Exam
<Pennie Tolliver PA-C - Last Filed: 01/10/24 23:42>
Physical Exam
Physical Exam:
GENERAL: No acute distress
HEENT: Hematoma to right lower forehead, extraocular muscles intact, no signs of entrapment, no proptosis, dentition intact, no other obvious trauma
NECK: no midline tenderness, normal range of motion, NEXUS criteria negative, no other obvious trauma
BACK: no midline tenderness, no other obvious trauma,
CHEST: no tenderness, no flail segment, no subcutaneous emphysema, no other obvious trauma
LUNGS: clear to auscultation bilaterally
CARDIOVASCULAR: regular rate and rhythm
ABDOMEN: soft, non-tender, no masses, no other obvious trauma
PELVIS: stable, no obvious injury
EXTREMITIES: Tenderness of right elbow with intact active flexion/extension of R elbow, R wrist and R shoulder atraumatic and nontender with full ROM. RUE with palpable distal pulses and intact sensation. Very mild tenderness of right knee without
no obvious swelling or deformity. Full ROM in right knee. B/l hips nontender with internal/external rotation. LUE and LLE atraumatic and nontender.
NEUROLOGIC: awake, alert x 3, no focal deficits
Course
<Pennie Tolliver PA-C - Last Filed: 01/10/24 23:42>
Orders/Labs/Results
Orders:
Orders
01/10/24 15:05
CT Head W/o Iv Contrast Urgent
Comment:
Reason For Exam: pain injury
CR Elbow - Right Min 3 Views Urgent
Comment:
Reason For Exam: pain injury
Knee, Right 4 or More Views [CR Knee- Right 4 Or More View*] Urgent
Comment:
Reason For Exam: pain injury
01/10/24 17:29
Sling Right-Treatment ONCE
Splints/Slings/Crut- Treatment ONCE
Location: Right
Type of Splint: Long Arm
01/10/24 17:30
Oxycodone [Roxicodone] 2.5 mg PO NOW STA
01/10/24 19:21
Oxycodone [Roxicodone] 2.5 mg PO NOW STA
Vital Signs
Initial and Last Documented VS:
Initial Vital Signs
Temp Pulse Resp BP Pulse Ox
97.9 F 72 16 161/76 97
01/10/24 14:58 01/10/24 14:58 01/10/24 14:58 01/10/24 14:58 01/10/24 14:58
Last Documented Vital Signs
Temp Pulse Resp BP Pulse Ox
97.9 F 72 20 151/71 97
01/10/24 14:58 01/10/24 20:29 01/10/24 20:29 01/10/24 20:29 01/10/24 14:58
<Zhang Ivey MD - Last Filed: 01/10/24 17:24>
Orders/Labs/Results
Orders:
Orders
01/10/24 15:05
CT Head W/o Iv Contrast Urgent
Comment:
Reason For Exam: pain injury
CR Elbow - Right Min 3 Views Urgent
Comment:
Reason For Exam: pain injury
Knee, Right 4 or More Views [CR Knee- Right 4 Or More View*] Urgent
Comment:
Reason For Exam: pain injury
01/10/24 17:29
Sling Right-Treatment ONCE
Splints/Slings/Crut- Treatment ONCE
Location: Right
Type of Splint: Long Arm
01/10/24 17:30
Oxycodone [Roxicodone] 2.5 mg PO NOW STA
01/10/24 19:21
Oxycodone [Roxicodone] 2.5 mg PO NOW STA
Vital Signs
Initial and Last Documented VS:
Initial Vital Signs
Temp Pulse Resp BP Pulse Ox
97.9 F 72 16 161/76 97
01/10/24 14:58 01/10/24 14:58 01/10/24 14:58 01/10/24 14:58 01/10/24 14:58
Last Documented Vital Signs
Temp Pulse Resp BP Pulse Ox
97.9 F 72 20 151/71 97
01/10/24 14:58 01/10/24 20:29 01/10/24 20:29 01/10/24 20:29 01/10/24 14:58
<Pennie Tolliver PA-C - Last Filed: 01/10/24 23:42>
MDM/Problems Addressed
Differential Diagnosis Includes:
Not limited to: Contusion, concussion, facial fracture, intraparenchymal hemorrhage, upper arm fracture, etc
MDM/Problems Addressed:
88 year old female presenting with hematoma to right forehead and right elbow pain following witnessed mechanical fall. No LOC. Does take baby aspirin, no other thinners. Vitals stable. Exam as above. Hematoma noted to right forehead. EOMs intact
bilaterally without any evidence of orbital trauma. Patient has excellent ROM in neck with no cspine tenderness. Tenderness of right elbow. Right lower extremity atraumatic and nontender with full full ROM on my exam. Xrays reviewed. Fractures noted
to right distal humerus and radial head. Will place patient in posterior long arm splint and give shoulder sling. Did discuss with orthopedics who will follow out-patient. CT head without acute intracranial abnormalities, hematoma noted to right
forehead. Xray right knee without acute findings.
Will interrogate pacemaker to ensure no arrhythmia preceding fall.
Patient stable for discharge with return precautions and ortho f/u. Patient seen with attending physician.
Chronic conditions affecting care:
N/A
Acute Exacerbation and/or Progression of Chronic Illness:
N/A
<Pennie Tolliver PA-C - Last Filed: 01/10/24 23:42>
*Radiology
Radiology exam reviewed: preliminary read by ED provider and radiology read reviewed
*Pulse Oximetry
Patient hypoxic: no
*EKG
Interpreted by ED Provider?: NA
*Stripper Black And White Interpretation
Rate: Stripper Black And White- N/A
*Critical Care Note
Total Time (30-74mins, 75-104mins- exclusive of procedures): Not Applicable
<Pennie Tolliver PA-C - Last Filed: 01/10/24 23:42>
Patient Management
Discussion with other providers: [employer] (Orthopedics - Dr. Quiroz)
<Pennie Tolliver PA-C - Last Filed: 01/10/24 23:42>
Update Note
Update Note:
Update: Reviewed pacemaker interrogation report. No evidence of cardiac arrhythmia. Patient stable for discharge with return precautions/orthopedic follow-up.
ED Attending Note
<Pennie Tolliver PA-C - Last Filed: 01/10/24 23:42>
-
Portions of this chart may have been created with voice recognition software.� Occasional wrong word or��sound alike� substitutions may have occurred due to the inherent limitations of voice recognition software.
<Zhang Ivey MD - Last Filed: 01/10/24 17:24>
ED Attending Note
Patient seen and examined by attending physician: Yes
I performed the substantive portion of visit, reviewed & personally made and approve the management plan that is documented in note by myself or BARBRA.: Yes
ED Attending Note:
I have seen and evaluated the patient with a [id number] encounter. I have spoken to the [PA] and involved in the medical history, the physical exam, medical decision making.
Evaluation and management service: agree unless noted differently below.
Results interpretation: agree unless noted differently below.
Patient is a 88-year-old woman presenting to the emergency department after mechanical fall. Patient hit her head elbow and knee. She was ambulatory. Patient denies any numbness tingling. No weakness. The most amount of pain is at her elbow.
GENERAL: no acute distress
HEENT: Hematoma to the right forehead, extraocular muscles intact, no signs of entrapment, dentition intact, no other obvious trauma
NECK: no midline tenderness, normal range of motion, NEXUS criteria negative, no other obvious trauma
BACK: no midline tenderness, no other obvious trauma
CHEST: no tenderness, no flail segment, no subcutaneous emphysema, no other obvious trauma
LUNGS: clear to auscultation bilaterally
CARDIOVASCULAR: regular rate and rhythm
ABDOMEN: soft, non-tender, no masses, no other obvious trauma
PELVIS: stable, no obvious injury
EXTREMITIES: Right elbow held in flexion with diffuse tenderness and some swelling, 2+ radial pulses, sensation intact in the entire upper extremity moving all extremities, distal pulses intact, no other obvious trauma
NEUROLOGIC: awake, alert x 3, no focal deficits
88-year-old woman presenting to the emergency department after mechanical fall. Vitals unremarkable exam does show hematoma with associated tenderness at the elbow. X-ray per my interpretation with fracture. Does appear to be supracondylar
fracture. Will place patient in long-arm splint with elbow in flexion. PA did discuss with orthopedic. Will give them follow-up. CT scan of the head negative.
Discharge Plan
Departure
Patient Disposition: Home (Routine Discharge)
Date of Disposition: 01/10/24
Time of Disposition: 19:18
Patient with high blood pressure during this ER visit?: Yes
Condition: Good
Covid-19: Not Applicable
Discharge Problem:
Fall, Contusion of forehead, Closed fracture of head of right radius, Closed fracture of distal end of right humerus
Instructions: Head Injury in Adults (DC), Contusion (DC), Splint Care ED, Upper Arm Fracture ED, BLOOD PRESSURE
Prescriptions:
No Action
atorvastatin 20 mg Tablet
20 mg PO DAILY
amiodarone 200 mg Tablet
200 mg PO DAILY
aspirin 81 mg Tablet,Delayed Release (Dr/Ec)
81 mg PO DAILY
acetaminophen [Tylenol Extra Strength] 500 mg Tablet
1,000 mg PO Q6HPRN PRN (Reason: mild pain)
carvedilol 3.125 mg Tablet
3.125 mg PO BID
levothyroxine 25 mcg Tablet
25 mcg PO DAILY@1400
potassium chloride [Klor-Con M20] 20 mEq Tablet,Er Particles/Crystals
10 meq PO MOWEFR
Patient Comments:
08/26/2023, prescribed for pt. to take one tablet daily but pt. takes half tablet Q48H.
cyanocobalamin (vitamin B-12) 500 mcg Tablet
500 mcg PO DAILY
losartan 100 mg Tablet
100 mg PO QPM
phhieupgkirm-sfusrpyf-obgwuz Tablet
1 tab PO DAILY
cholecalciferol (vitamin D3) 25 mcg (1,000 unit) Tablet
25 mcg PO DAILY
furosemide [Lasix] 40 mg tablet
40 mg PO DAILY Qty: 33 0RF
ibuprofen 200 mg Capsule
400 mg PO Q4HPRN PRN (Reason: mild pain)
ipratropium-albuterol 0.5 mg-3 mg(2.5 mg base)/3 mL Solution For Nebulization
3 ml inhalation R Q4HPRN PRN (Reason: SOB) Qty: 180 0RF
budesonide 0.5 mg/2 mL Suspension For Nebulization
0.5 mg inhalation R BID Qty: 60 0RF
Referrals:
Angus Quiroz MD [Active] - Next open appointment
Guicho Klein MD [Family Provider] -
Activity Restrictions/Additional Instructions:
Return to the emergency department with any severe headache, neck pain, changes in vision, intractable nausea/vomiting, changes in mental status, numbness/tingling in right arm, intractable pain, or any other concerns
-As discussed�your x-ray showed fractures of both your right humerus and right radius today. You will need to follow-up with orthopedics very shortly for further evaluation/management of arm fractures. Continue to apply ice to arm. You can take
Tylenol needed for pain.
-You should continue to ice your contusion of your forehead.
-Follow-up with orthopedic for further evaluation/management
Monitor your symptoms closely return to the emergency department any acute worsening/new symptom
Interventions
Interventions:
*Risk Screen - Suicide Last Done: 01/10/24 16:37
*General Assessment Last Done: 01/10/24 16:37
*Neglect/Abuse Screening Last Done: 01/10/24 20:29
*Nursing Disposition Last Done: 01/10/24 20:29
ED-Musculoskeletal Assessment Last Done: 01/10/24 16:37
ED- Neurological Assessment Last Done: 01/10/24 16:37
ED-Skin Assessment Last Done: 01/10/24 16:37
Discharge Date and Time
Discharge Date/Time: 01/10/24 20:34
Print Language: UKRAINIAN
[2024-01-10] MEDS: ROXICODONE 2.5 MG PO ×2 (18:10→19:26)
[2024-01-10 20:27] VITALS: BP 151/71
[2024-01-10 20:29] VITALS: BP 151/71
== END 2024-01-10 20:34 | disposition home or self-care (01) ==
LOC: EMR 14:53
PROVIDERS: EMERGENCY PHYSICIAN Student in an Organized Health Care Education/Training Program; FAMILY PHYSICIAN Family Medicine
DX: S52.121A Displaced fracture of head of right radius, initial encounter for closed fracture (principal); S42.401A Unspecified fracture of lower end of right humerus, initial encounter for closed fracture; S00.83XA Contusion of other part of head, initial encounter; W19.XXXA Unspecified fall, initial encounter; E78.00 Pure hypercholesterolemia, unspecified; I11.0 Hypertensive heart disease with heart failure; I50.9 Heart failure, unspecified; I48.91 Unspecified atrial fibrillation; I25.10 Atherosclerotic heart disease of native coronary artery without angina pectoris; Z95.1 Presence of aortocoronary bypass graft; Z95.810 Presence of automatic (implantable) cardiac defibrillator; Z87.891 Personal history of nicotine dependence
CPT/HCPCS: 93288; 29105; 99284; 70450; 73080; 73564

== ENCOUNTER → 2024-04-12 09:58 | Outpatient (REF) | payer MEDICARE, SELFPAY | LOC: RAD 09:58 | PROVIDERS: ATTENDING PHYSICIAN Podiatrist Foot Surgery; FAMILY PHYSICIAN Family Medicine | DX: M86.172 Other acute osteomyelitis, left ankle and foot (principal) | CPT/HCPCS: 78315; A9503 ==

== ENCOUNTER → 2024-04-14 06:33 | Outpatient (REF) | payer OTHER, SELFPAY | LOC: RAD 06:33 | PROVIDERS: ATTENDING PHYSICIAN Podiatrist Foot Surgery; FAMILY PHYSICIAN Family Medicine | DX: M86.172 Other acute osteomyelitis, left ankle and foot (principal) | CPT/HCPCS: 78803; A9569 ==

== ENCOUNTER → 2024-05-16 13:35 | Outpatient (REF) | payer OTHER, SELFPAY | LOC: HWRAD 13:35 | PROVIDERS: ATTENDING PHYSICIAN Internal Medicine; FAMILY PHYSICIAN Otolaryngology | DX: R91.1 Solitary pulmonary nodule (principal) | CPT/HCPCS: 71250 ==